=== PATIENT | male | born 1950 | race Caucasian/White ===

== ENCOUNTER 2016-11-05 21:16 | Inpatient (IN) | payer MEDICARE, MEDICAID ==
[2016-11-05] MEDS ORDERED: PANTOPRAZOLE SODIUM 40 MG VIAL IV PRN (22:19)
[2016-11-05] MEDS ORDERED: PANTOPRAZOLE SODIUM 40 MG VIAL IV ONE (22:19)
[2016-11-05] MEDS ORDERED: ONDANSETRON HCL INJ/PF 4 MG/2 ML SDV IV ONE (22:49)
[2016-11-05] MEDS ORDERED: NORMAL SALINE 1000 ML 1,000 ML IV ONE (22:49)
[2016-11-05 23:03] LABS: ALANINE AMINOTRANSFERASE 27 U/L (21-72); ALBUMIN 3.6 g/dL (3.5-5.0); ALKALINE PHOSPHATASE 63 U/L (38-126); ANION GAP 8 (5-19); ASPARTATE AMINO TRANSFERASE 18 U/L (17-59); BILIRUBIN,TOTAL 0.8 mg/dL (0.2-1.3); BLOOD UREA NITROGEN 45 mg/dL (7-20); CALCIUM 9.4 mg/dL (8.4-10.2); CARBON DIOXIDE 35 mmol/L (22-30); CHLORIDE 97 mmol/L (98-107); CREATININE RESULT 1.51 mg/dL (0.52-1.25); GLUCOSE 103 mg/dL (75-110); POTASSIUM 4.3 mmol/L (3.6-5.0); SODIUM 140.1 mmol/L (137-145); TOTAL PROTEIN 6.4 g/dL (6.3-8.2)
[2016-11-05 23:09] LABS: PARTIAL THROMBOPLASTIN TIME 39.6 SEC (23.5-35.8)
[2016-11-05 23:33] LABS: ABSOLUTE EOSINOPHILS # (AUTO) 0.3 10^3/uL (0.0-0.6); ABSOLUTE LYMPHOCYTES (AUTO) 0.8 10^3/uL (0.5-4.7); ABSOLUTE MONOCYTES (AUTO) 0.7 10^3/uL (0.1-1.4); BASOPHILS % (AUTO) 0.2 % (0-2); EOSINOPHILS % (AUTO) 1.7 % (0-6); HEMATOCRIT 30.4 % (37.9-51.0); HEMOGLOBIN 10.4 g/dL (13.5-17.0); HGB HCT DIFFERENCE 0.8; LYMPHOCYTES % (AUTO) 5.1 % (13-45); MEAN CORPUSCULAR HEMOGLOBIN 30.8 pg (27.0-33.4); MEAN CORPUSCULAR HGB CONC 34.3 g/dL (32.0-36.0); MEAN CORPUSCULAR VOLUME 90 fl (80-97); MONOCYTES % (AUTO) 4.1 % (3-13); RED BLOOD COUNT 3.37 10^6/uL (4.35-5.55); SEGMENTED NEUTROPHILS % (AUTO) 88.9 % (42-78); WHITE BLOOD COUNT 15.8 10^3/uL (4.0-10.5)
--- NOTE | 2016-11-06 00:45 | ER Document Report ---
ED General - General Chief Complaint: Vomitting Stated Complaint: VOMITING Notes: Patient is a 66-year-old male presents with complaints of one episode of coffee- ground emesis prior to arrival. Patient does live at [facility] and is chronically debilitated secondary to multiple chronic medical conditions including insulin-dependent diabetes, COPD with chronic oxygen dependence, CHF, multiple DVTs and pulmonary emboli in the past requiring chronic anticoagulation on Coumadin. He has had an upper GI bleed in the past he is uncertain what year. He notes that he is had an associated diffuse abdominal fullness which she describes as mildly uncomfortable and unchanged since onset. Nothing improves or worsens his symptoms. He denies any melena or hematochezia. He has not had any additional episodes of coffee-ground emesis with the exception of very small approximately 5 mL episode here in the emergency department that was consistent with coffee-ground emesis. TRAVEL OUTSIDE OF THE [place] IN LAST 30 DAYS: No - Related Data Allergies/Adverse Reactions: iodine [Iodine] Allergy (Verified 11/06/16 01:26) hydrocodone bitartrate [From Vicodin] Adverse Reaction (Mild, Verified 11/06/16 01:26) VOMITING Home Medications: Current Home Medications Insulin Lispro [Humalog] 100 unit SQ ASDIR PRN 11/06/16 [History] Warfarin Sodium [Coumadin 1 mg Tablet] 0.5 mg PO QHS 11/06/16 [History] Past Medical History - General Information source: Patient, Outside Facility Records - Social History Smoking Status: Never Smoker Chew tobacco use (# tins/day): No Frequency of alcohol use: None Drug Abuse: None Lives with: [facility] Family History: Reviewed & Not Pertinent, CAD, DM, Hyperlipidemia, Hypertension , Thyroid Disfunction Patient has suicidal ideation: No Patient has homicidal ideation: No - Past Medical History Cardiac Medical History: Reports: Hx Atrial Fibrillation, Hx Congestive Heart Failure, Hx Coronary Artery Disease - S/P CABG 2000, Hx DVT - right leg, Hx Heart Attack, Hx Hypercholesterolemia, Hx Hypertension, Hx Peripheral Vascular Disease Pulmonary Medical History: Reports: Hx COPD, Hx Intubation, Hx Respiratory Failure, Hx Sleep Apnea Denies: Hx Asthma, Hx Bronchitis, Hx Pneumonia Neurological Medical History: Denies: Hx Cerebrovascular Accident, Hx Seizures Endocrine Medical History: Reports: Hx Diabetes Mellitus Type 2, Hx Hypothyroidism Renal/ Medical History: Reports: Hx Renal Insufficiency GI Medical History: Reports: Hx Cirrhosis Musculoskeltal Medical History: Reports Hx Arthritis Psychiatric Medical History: Denies: Hx Depression 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 HENT: Negative for sore throat. Eyes: Negative for visual changes. Cardiovascular: Negative for chest pain. Respiratory: Negative for shortness of breath. Gastrointestinal: Other for abdominal fullness, positive for coffee-ground emesis. Genitourinary: Negative for dysuria. Musculoskeletal: Negative for back pain. Skin: Negative for rash. Neurological: Negative for headaches, weakness or numbness. 10 point ROS negative except as marked above and in HPI. Physical Exam - Vital signs Vitals: Temp Pulse Resp BP Pulse Ox 97.9 F 70 16 116/53 L 100 11/05/16 21:31 11/05/16 21:31 11/05/16 21:31 11/05/16 21:31 11/05/16 21:31 Interpretation: Normal Notes: PHYSICAL EXAMINATION: GENERAL: Chronically ill in appearance but in no acute distress. HEAD: Atraumatic, normocephalic. EYES: Pupils equal round and reactive to light, ptosis of the right eye, extraocular movements intact, sclera anicteric, conjunctiva are normal. ENT: nares patent, oropharynx clear without exudates. Moderately dry mucous membranes. NECK: Normal range of motion, supple without lymphadenopathy LUNGS: Breath sounds clear to auscultation bilaterally and equal. No wheezes rales or rhonchi. HEART: Regular rate and rhythm without murmurs ABDOMEN: Soft, nontender, normoactive bowel sounds. No guarding, no rebound. No masses appreciated. EXTREMITIES: Normal range of motion, no pitting or edema. No cyanosis. NEUROLOGICAL: No focal neurological deficits. Moves all extremities spontaneously and on command. PSYCH: Normal mood, normal affect. SKIN: Warm, Dry, normal turgor, no rashes or lesions noted. Course - Re-evaluation Re-evalutation: 11/06/16 04:06 Patient presents with apparently one large episode of coffee-ground emesis prior to arrival in a very small amount here in the emergency department. He is hemodynamically within normal limits and has remained stable during his time here in the emergency department. His INR is subtherapeutic at 1.33. He has not had any bright red bleeding. Lower GI bleed. He does have a history of the same. He was started on IV Protonix and IV fluids at time of arrival. Hewas typed and screened but his hemoglobin was not low enough to warrant blood transfusion. He has been referred to the hospitalist Dr. Mesa for admission. - Vital Signs Vital signs: Temp Pulse Resp BP Pulse Ox 98.1 F 70 17 112/56 L 99 11/06/16 02:25 11/05/16 21:31 11/06/16 03:01 11/06/16 03:01 11/06/16 03:01 - Laboratory Result Diagrams: 11/06/16 02:10 11/05/16 21:40 Laboratory results interpreted by me: 11/05/16 11/05/16 11/05/16 21:40 21:40 21:40 WBC 15.8 H RBC 3.37 L Hgb 10.4 L Hct 30.4 L RDW 15.0 H Seg Neutrophils % 88.9 H Lymphocytes % 5.1 L Absolute Neutrophils 14.0 H PT 17.0 H APTT 39.6 H Chloride 97 L Carbon Dioxide 35 H BUN 45 H Creatinine 1.51 H Est GFR ( Amer) 57 L Est GFR (Non-Af Amer) 47 L 11/06/16 02:10 WBC 17.7 H RBC 3.24 L Hgb 9.8 L Hct 29.2 L RDW 14.8 H Seg Neutrophils % Lymphocytes % Absolute Neutrophils PT APTT Chloride Carbon Dioxide BUN Creatinine Est GFR ( Amer) Est GFR (Non-Af Amer) Discharge - Discharge Clinical Impression: Upper GI bleed, Coffee ground emesis Condition: Fair Disposition: ADMITTED INPATIENT Admitting Provider: Akashist Reanna Mesa Unit Admitted: ICU
[2016-11-06 02:26] LABS: HEMATOCRIT 29.2 % (37.9-51.0); HEMOGLOBIN 9.8 g/dL (13.5-17.0); HGB HCT DIFFERENCE 0.2; MEAN CORPUSCULAR HEMOGLOBIN 30.3 pg (27.0-33.4); MEAN CORPUSCULAR HGB CONC 33.7 g/dL (32.0-36.0); MEAN CORPUSCULAR VOLUME 90 fl (80-97); RED BLOOD COUNT 3.24 10^6/uL (4.35-5.55); RED CELL DISTRIBUTION WIDTH 14.8 % (11.5-14.0); WHITE BLOOD COUNT 17.7 10^3/uL (4.0-10.5)
[2016-11-06] MEDS ORDERED: IPRATROPIUM/ALBUTEROL 0.5-2.5 MG/3 ML AMPUL NEB PRN (02:40)
[2016-11-06] MEDS ORDERED: GLUCAGON,HUMAN RECOMB 1 MG INJ IM PRN (02:44)
[2016-11-06] MEDS ORDERED: DEXTROSE 50%-WATER 25 GM/50 ML DISP.SYRIN IV PRN ×2 (02:44)
[2016-11-06] MEDS ORDERED: DEXTROSE 40% GEL 15 GM TUBE PO PRN ×2 (02:44)
[2016-11-06] MEDS ORDERED: INSULIN LISPRO 100 UNIT/ML 3 ML VIAL SUBCUT PRN (02:44)
[2016-11-06] MEDS ORDERED: ACETAMINOPHEN 325 MG TABLET PO PRN (02:53)
--- NOTE | 2016-11-06 03:07 | PDOC H&P ---
History of Present Illness Admission Date/PCP: 11/06/16 02:34 Dr. Tony [facility] Patient complains of: hematemesis, coffee-ground emesis History of Present Illness: MAYRA JAY is a 66 year old male resident of [facility] who presents to the emergency room for evaluation of above complaint. Patient is Chronically debilitated due to multiple medical conditions, including COPD, insulin-dependent diabetes mellitus, with resulting peripheral vascular disease, having undergone both left below knee and right transmetatarsal amputations, oxygen dependent COPD, reported congestive heart failure, multiple DVTs and pulmonary emboli, requiring chronic anticoagulation with Coumadin. Patient has been discussed with emergency room physician who evaluated the patient. Patient is a poor historian in terms of both acute and chronic aspects of his healthcare. Patient had an episode of coffee ground emesis at [employer], small amount. Subsequent much smaller amount in the emergency room,. Only those 2 episodes.. Patient describes a several day history of mild diffuse upper abdominal discomfort. Could not really say what makes it worse or better. Denies melena or hematochezia. Status post both colonoscopy and upper endoscopy by Dr. Trotter on 10/25/2016. Upper endoscopy revealed gastritis. Colon polyps were removed. Report noted. Has remained hemodynamically stable, and again with no further bleeding episodes since arrival in the emergency room. Still complaining of mild upper abdominal discomfort. Prior to hospitalist service being consulted for admission, emergency room physician did speak with on-call surgeon, Dr. Landis, who has agreed to provide endoscopic services if needed. Laboratory results are listed in [facility] and are reviewed. Social history/personal habits: . Has children. No use of alcohol tobacco or illicit drugs. On disability due to multiple health problems. Family History : Uncertain health status of children. Sister is diabetic. Mother of old age. Uncertain cause of father's . Allergies/adverse reactions are listed in [facility] and are reviewed. Home medications are reviewed from a copy of the medication administration record from the [facility] and are to be reconciled by nursing staff in [facility]. Home medications initially autopopulated into [employer] may not accurately reflect patient's true medications, dosages, and/or frequencies. REVIEW OF SYSTEMS: Constitutional: No fever or chills. Eyes: Wears glasses. ENT: No swallowing problems or complaints. Pulmonary: No current complaints. Cardiovascular: No current complaints, including chest pain. Gastrointestinal: See history and present illness. Skin: No current complaints, including rashes. Hematologic: No unusual easy bruising or bleeding. Neurologic: No current complaints, including numbness or tingling. Musculoskeletal: No current complaints, including painful joints. Genitourinary: No current complaints, including dysuria. PHYSICAL EXAMINATION: 5 feet 4 inches tall. 79.4 kg. BMI 30 kg/m. Blood pressure 123/66. Pulse 69 and regular. 100% saturation on 2 L oxygen per nasal cannula. Respirations are 18 and unlabored. Temperature 98.1. Slightly obese otherwise well-nourished well-developed though chronically ill- appearing male who appears a number of years older than his stated age. Appears slightly fatigued. Otherwise, awake alert and cooperative. Mildly anxious, without agitation. Skin is warm and dry. No grossly obvious evidence of rash in areas of skin examined. No subcutaneous nodules palpated. ENT: Hearing grossly normal to normal conversation. Tongue midline on protrusion pink and slightly moist. Eyes: No scleral icterus. Pupils equal and reactive to light at 4 mm. Meta conjunctivae. Neck is supple and nontender to gentle active range of motion and palpation. Midline trachea. No palpable thyroid nodule mass enlargement or tenderness. Lymphatic: No palpable cervical or clavicular nodes. Neck and lymphatic exams limited by patient body habitus. Psychiatric: At Best fair insight into acute and chronic medical issues. Oriented to time location and why here. Lungs: Auscultation reveals clear and equal breath sounds bilaterally. No use of accessory respiratory muscles. Cardiovascular: Heart regular rate and rhythm, without gallop murmur or rub. No carotid or abdominal aortic bruits. No right ankle or pedal edema. Not sure I can palpate right dorsalis pedis or posterior tibial pulses, but distal remaining portion of foot is warm and dry with acceptable capillary refill. Patient is status post right transmetatarsal amputation, and left below-knee amputation. Both amputation sites have healed nicely. Abdomen: soft, obese, with positive bowel sounds. Very mild diffuse epigastric discomfort to palpation; certainly no evidence of guarding or peritoneal signs. Remaining portion of abdomen is nontender to palpation and compression. Unable to adequately evaluate abdomen for masses or organomegaly due to body habitus. Extremities: Right foot warm and dry, as is left BKA stump. No right calf tenderness to compression. No grossly obvious visual evidence of right calf swelling. Gentle manipulation of right lower extremity fails to reveal any obvious evidence of injury or instability to knee hip or ankle. He has a clean dry and intact Dressing overlying his right heel; this is left in place. Neurologic: Hand customer contact sales associate 5 over 5 and symmetric. Patellar reflexes absent. Absent right Babinski. Light touch is intact at right foot. Dorsiflexion and plantarflexion of foot 5 / 5. Past Medical History Cardiac Medical History: Reports: Atrial Fibrillation, Congestive Heart Failure , Coronary Artery Disease - S/P CABG 2000, DVT - right leg, Myocardial Infarction, Hyperlipidema, Hypertension, Peripheral Vascular Disease Pulmonary Medical History: Reports: Chronic Obstructive Pulmonary Disease (COPD) , Intubation, Respiratory Failure, Sleep Apnea Denies: Asthma, Bronchitis, Pneumonia EENT Medical History: Reports: Eyes - Glasses Neurological Medical History: Denies: Seizures Endocrine Medical History: Reports: Diabetes Mellitus Type 2, Hypothyroidism GI Medical History: Reports: Cirrhosis Musculoskeltal Medical History: Reports: Arthritis Psychiatric Medical History: Denies: Depression Hematology: Reports: Anemia Infectious Medical History: 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 Past Surgical History Past Surgical History: Reports: Cholecystectomy, Coronary Artery Bypass Graft - 3 vessel CABG in 1999, Orthopedic Surgery - Left BKA and right transmetatarsal amputations, Pacemaker Social History Information Source: Patient, Emergency Med Personnel, [facility] Records Lives with: [facility] Smoking Status: Never Smoker Frequency of Alcohol Use: None Hx Recreational Drug Use: No Hx Prescription Drug Abuse: No - Advance Directive Resuscitation Status: Full Code Surrogate healthcare decision maker:: Daughter Angelique Family History Family History: Reviewed & Not Pertinent, CAD, DM, Hyperlipidemia, Hypertension , Thyroid Disfunction Parental Family History Reviewed: Yes Children Family History Reviewed: Yes Sibling(s) Family History Reviewed.: Yes Medication/Allergy Home Medications: Amiodarone HCl [Cordarone 200 mg Tablet] 100 mg PO DAILY 06/02/15 Atorvastatin Calcium [Lipitor] 40 mg PO QHS 06/02/15 Multivitamin [Daily Vitamin] 1 each PO DAILY 06/02/15 Fenofibrate Nanocrystallized [Tricor] 1 tab PO DAILY 07/12/16 Fluticasone/Salmeterol [Advair 250-50 Diskus 28 dose] 1 puff IH BID 07/12/16 Furosemide [Lasix] 60 mg PO BID 07/12/16 Insulin Glargine,Hum.rec.anlog [Lantus] 30 units SUBCUT QHS 07/12/16 Magnesium Oxide 1 tab PO DAILY 07/12/16 Insulin Lispro [Humalog] 5 units SUBCUT TID 08/21/16 Metoprolol Succinate [Toprol Xl 50 mg Tab.sr] 1 tab PO DAILY 08/21/16 Lorazepam [Ativan 0.5 mg Tablet] 0.5 mg PO Q4HP PRN #30 tablet 09/01/16 Clopidogrel Bisulfate [Plavix 75 mg Tablet] 75 mg PO DAILY 10/24/16 Epoetin [place] [Procrit Inj 20,000 Unit/1 ml Vial (Renal)] 20,000 unit IJ ASDIR Levothyroxine Sodium [Synthroid] 100 mcg PO DAILY 10/24/16 Ondansetron HCl [Zofran 4 mg Tablet] 1 tab PO ASDIR PRN 10/24/16 Sennosides/Docusate Sodium [Docusate Sodium-Senna Tablet] 2 each PO QHS Spironolact/Hydrochlorothiazid [Aldactazide 25-25 Tablet] 1 each PO DAILY Tamsulosin HCl [Flomax 0.4 mg Cap.sr] 0.4 mg PO DAILY 10/24/16 Tiotropium [place] [Spiriva Handihaler 18 mcg/dose (30 Dose)] 1 cap IH DAILY Albuterol Sulfate [Proair HFA] 2 puff IH Q4H PRN 11/06/16 Cholecalciferol (Vitamin D3) [Vitamin D3] 50,000 unit PO ASDIR PRN 11/06/16 Insulin Lispro [Humalog] 100 unit SQ ASDIR PRN 11/06/16 Cefuroxime Axetil [Ceftin 500 mg Tablet] 500 mg PO Q12 #14 tablet 11/10/16 Lactulose [Cephulac Syrup 20 gm/30 ml Udcup] 20 gm PO Q6 udc 11/10/16 Lansoprazole [Prevacid 30 mg Odt Tablet] 30 mg PO BIDACBS tab.rap.dr 11/10/16 Oxycodone HCl [Oxy-Ir 5 mg Tablet] 5 mg PO Q6HP PRN #30 tablet 11/10/16 Allergies/Adverse Reactions: iodine [Iodine] Allergy (Verified 11/06/16 01:26) hydrocodone bitartrate [From Vicodin] Adverse Reaction (Mild, Verified 11/06/16 01:26) VOMITING Physical Exam Vital Signs: Temp Pulse Resp BP Pulse Ox 98.1 F 70 14 123/66 100 11/06/16 02:25 11/05/16 21:31 11/06/16 02:01 11/06/16 02:01 11/06/16 02:01 Assessment & Plan - Diagnosis (1) COPD (chronic obstructive pulmonary disease) Qualifiers: COPD type: unspecified COPD Qualified Code(s): J44.9 - Chronic obstructive pulmonary disease, unspecified Is this a current diagnosis for this admission?: YesPlan: Clinically stable at present. Resume home medications as appropriate once these have been reviewed. (2) Coffee ground emesis Is this a current diagnosis for this admission?: YesPlan: Gastritis noted on upper endoscopy by Dr. Trotter, the of this month. IV Protonix. Dr. Landis, credit operations specialist surgeon has agreed to provide endoscopic services if necessary. Hemodynamically stable at present. Serial hemoglobin and hematocrit. We'll obviously hold Coumadin. I have strongly encouraged patient not to get out of bed without notifying staff , to avoid a fall with injury. He has been nonambulatory since his left below-knee amputation. Knee high SCDs for DVT prophylaxis; with coffee ground emesis, along with patient being on Coumadin, we'll obviously forego Lovenox or heparin at this point in time. Impression and plans were discussed with patient, who concurs. Time spent in evaluation and management of patient: 53 minutes. (3) Epigastric abdominal pain Is this a current diagnosis for this admission?: Yes (4) Gastritis determined by endoscopy Is this a current diagnosis for this admission?: Yes (5) Chronic anticoagulation Is this a current diagnosis for this admission?: Yes (6) Decubitus ulcer, heel, right, unstageable Is this a current diagnosis for this admission?: YesPlan: Innovative mattress. Turn every 2 hours. (7) Hypothyroidism Qualifiers: Hypothyroidism type: unspecified Qualified Code(s): E03.9 - Hypothyroidism, unspecified Is this a current diagnosis for this admission?: YesPlan: TSH is pending. Resume home medications as appropriate once these have been reviewed. (8) CKD (chronic kidney disease) stage 3, GFR 30-59 ml/min Is this a current diagnosis for this admission?: YesPlan: Follow-up chemistry. (9) Chronic combined systolic and diastolic CHF (congestive heart failure) Is this a current diagnosis for this admission?: YesPlan: Clinically stable at present. Resume home medications as appropriate once these have been reviewed. (10) Coronary artery disease Qualifiers: Coronary Disease-Associated Artery/Lesion type: [place] artery [place] vs. transplanted heart: [place] heart Associated angina: without angina Qualified Code(s): I25.10 - Atherosclerotic heart disease of [place] coronary artery without angina pectoris Is this a current diagnosis for this admission?: Yes (11) History of DVT (deep vein thrombosis) Is this a current diagnosis for this admission?: Yes (12) HAKAN (obstructive sleep apnea) Is this a current diagnosis for this admission?: YesPlan: CPAP daily at bedtime. Patient reportedly noncompliant with CPAP as outpatient. - Inpatient Certification Based on my medical assessment, after consideration of the patient's comorbidities, presenting symptoms, or acuity I expect that the services needed warrant INPATIENT care.: Yes I certify that my determination is in accordance with my understanding of Medicare's requirements for reasonable and necessary INPATIENT services [42 CFR 412.3e].: Yes Medical Necessity: Significant Comorbidiites Make Outpatient Treatment Too Risky , Need Close Monitoring Due to Risk of Patient Decompensation, Need For IV Fluids, Need For Continuous Telemetry Monitoring, Risk of Complication if Not Cared For in Hospital Post Hospital Care: D/C or Transfer Summary
[2016-11-06] MEDS: NORMAL SALINE 1000 ML 1,000 ML IV PRN ×2 (03:14→21:36)
[2016-11-06 06:59] LABS: HEMATOCRIT 29.2 % (37.9-51.0); HEMOGLOBIN 9.9 g/dL (13.5-17.0); HGB HCT DIFFERENCE 0.5; MEAN CORPUSCULAR HEMOGLOBIN 30.4 pg (27.0-33.4); MEAN CORPUSCULAR HGB CONC 33.7 g/dL (32.0-36.0); MEAN CORPUSCULAR VOLUME 90 fl (80-97); RED BLOOD COUNT 3.24 10^6/uL (4.35-5.55); RED CELL DISTRIBUTION WIDTH 14.5 % (11.5-14.0); WHITE BLOOD COUNT 18.1 10^3/uL (4.0-10.5)
[2016-11-06 07:01] LABS: PROTHROMBIN TIME 17.5 SEC (11.4-15.4)
[2016-11-06 07:22] LABS: ANION GAP 10 (5-19); BLOOD UREA NITROGEN 41 mg/dL (7-20); CARBON DIOXIDE 29 mmol/L (22-30); CHLORIDE 100 mmol/L (98-107); CREATININE RESULT 1.33 mg/dL (0.52-1.25); GLUCOSE 103 mg/dL (75-110); MAGNESIUM 2.3 mg/dL (1.6-2.3); POTASSIUM 4.3 mmol/L (3.6-5.0); SODIUM 139.1 mmol/L (137-145)
[2016-11-06] MEDS ORDERED: LORAZEPAM 0.5 MG TABLET PO PRN (08:47)
--- NOTE | 2016-11-06 08:48 | PDOC PROGRESS REPORT ---
Subjective Progress Note for:: 11/06/16 Subjective:: New admission 11/06/16. Denies any history of pulmonary embolism at all (as documented w/ prior PE). Had only one episode of DVT multiple years ago. Has been on warfarin for a long time. 3 episodes of GI bleed since September 2016. Physical Exam Vital Signs: Temp Pulse Resp BP Pulse Ox 98.2 F 77 22 H 106/57 L 97 11/06/16 05:24 11/06/16 07:44 11/06/16 05:24 11/06/16 05:24 11/06/16 05:24 Intake & Output 11/05/16 11/06/16 11/07/16 06:59 06:59 06:59 Intake Total 150 Output Total 200 Balance -50 Weight 79.3 kg Results Laboratory Results: 11/06/16 06:38 11/06/16 06:38 11/06/16 11/06/16 11/06/16 06:38 06:38 06:38 WBC 18.1 H RBC 3.24 L Hgb 9.9 L Hct 29.2 L MCV 90 MCH 30.4 MCHC 33.7 RDW 14.5 H Plt Count 191 Sodium 139.1 Potassium 4.3 Chloride 100 Carbon Dioxide 29 Anion Gap 10 BUN 41 H Creatinine 1.33 H Est GFR ( Amer) > 60 Est GFR (Non-Af Amer) 54 L Glucose 103 Calcium 9.0 Magnesium 2.3 TSH 6.28 H Assessment & Plan - Diagnosis (1) Coffee ground emesis Is this a current diagnosis for this admission?: Yes (2) Leukocytosis Qualifiers: Leukocytosis type: unspecified Qualified Code(s): D72.829 - Elevated white blood cell count, unspecified Is this a current diagnosis for this admission?: Yes (3) Anemia Qualifiers: Iron deficiency anemia type: chronic blood loss Is this a current diagnosis for this admission?: Yes (4) Coagulopathy Is this a current diagnosis for this admission?: Yes (5) Decubitus ulcer Qualifiers: Pressure ulcer location: heel Pressure ulcer stage: unstageable Laterality: right Qualified Code(s): L89.610 - Pressure ulcer of right heel, unstageable Is this a current diagnosis for this admission?: Yes (6) Elevated TSH Is this a current diagnosis for this admission?: Yes - Plan Summary Plan Summary: free t4, d/c warfarin-patients wish. DVT prophylaxis on d/c. Consult URSULA Alva.
[2016-11-06] MEDS: PANTOPRAZOLE SODIUM 40 MG VIAL IV SCH ×2 (09:24→21:35)
[2016-11-06] MEDS: DOCUSATE SODIUM 100 MG CAPSULE PO SCH ×2 (09:32→17:53)
[2016-11-06 10:00] LABS: HEMATOCRIT 28.7 % (37.9-51.0); HEMOGLOBIN 9.6 g/dL (13.5-17.0); HGB HCT DIFFERENCE 0.1; MEAN CORPUSCULAR HEMOGLOBIN 30.2 pg (27.0-33.4); MEAN CORPUSCULAR HGB CONC 33.5 g/dL (32.0-36.0); MEAN CORPUSCULAR VOLUME 90 fl (80-97); RED BLOOD COUNT 3.19 10^6/uL (4.35-5.55); RED CELL DISTRIBUTION WIDTH 14.7 % (11.5-14.0); WHITE BLOOD COUNT 18.5 10^3/uL (4.0-10.5)
[2016-11-06] MEDS ORDERED: LEVOTHYROXINE SODIUM 0.075 MG TABLET PO SCH (10:00)
[2016-11-06] MEDS ORDERED: MAGNESIUM OXIDE 400 MG TABLET PO SCH (10:00)
[2016-11-06] MEDS ORDERED: METOPROLOL SUCCINATE 50 MG TAB.SR.24H PO SCH (10:00)
[2016-11-06] MEDS ORDERED: TIOTROPIUM BROMIDE DPI 5 CAP/KIT (18 MCG/CAP) IH ONE (11:00)
[2016-11-06] MEDS ORDERED: FLUTICASONE/SALMETEROL DISKUS 250-50 MCG/DOSE IH ONE (11:00)
[2016-11-06] MEDS: TAMSULOSIN HCL 0.4 MG CAP.SR.24H PO SCH (11:01)
[2016-11-06] MEDS: FUROSEMIDE 40 MG TABLET PO SCH ×2 (11:02→17:36)
[2016-11-06] MEDS: AMIODARONE HCL 200 MG TABLET PO SCH (11:02)
[2016-11-06] MEDS: MULTIVITAMIN TABLET PO SCH (11:03)
[2016-11-06] MEDS ORDERED: LEVOTHYROXINE SODIUM 0.1 MG TABLET PO ONE (12:00)
[2016-11-06] MEDS: FLUTICASONE/SALMETEROL DISKUS 250-50 MCG/DOSE IH SCH (17:53)
--- NOTE | 2016-11-06 21:30 | PDOC CONSULTATION ---
History of Present Illness Admission Date/PCP: 11/06/16 02:41 History of Present Illness: Cooper Haque is a 66-year-old white male, resident of [facility], debilitated with multiple comorbidities. Medical issues include oxygen dependent COPD, insulin-dependent diabetes mellitus, congestive heart failure, previous DVT with chronic anticoagulation with Coumadin, coronary artery disease status post myocardial infarction and coronary artery bypass graft and pacemaker placement, urinary retention, peripheral arterial disease status post left BKA and right TMA. The patient had one episode of coffee- ground emesis at [facility] and was transported to the emergency room. The patient's DVT was in his right leg per the patient. He is on Coumadin at [facility]. The patient was evaluated in the emergency room on 10/04/2016 for blood in stools. On 10/25/2016 he underwent EGD and colonoscopy by Dr. Trotter. He was noted to have mild chronic inactive gastritis, but no Helicobacter pylori on EGD. On colonoscopy, he was noted to have internal hemorrhoids and 7 colon polyps were removed. The pathology report for the polyps revealed a combination of lymphoid aggregate, hyperplastic polyp, tubular adenoma, and tubulovillous adenomas. The patient reports that 3 months ago he had an episode where he spit up a very small amount of blood, otherwise no other episodes of coffee-ground emesis until yesterday. He has had no coffee-ground emesis since being admitted to the hospital. His hemoglobin and blood pressure stable. Review of systems is positive for weight loss since admission to the long-term; 260 pounds down to 185 pounds through diet changes and disease control. Also positive for leg swelling, chronic shortness of breath, unchanged recently , urinary retention. Past Medical History Cardiac Medical History: Reports: Atrial Fibrillation, Congestive Heart Failure , Coronary Artery Disease - S/P CABG 2000, DVT - right leg, Myocardial Infarction, Hyperlipidema, Hypertension, Peripheral Vascular Disease Pulmonary Medical History: Reports: Chronic Obstructive Pulmonary Disease (COPD) , Intubation, Respiratory Failure, Sleep Apnea Denies: Asthma, Bronchitis, Pneumonia EENT Medical History: Reports: Eyes - Glasses Neurological Medical History: Denies: Seizures Endocrine Medical History: Reports: Diabetes Mellitus Type 2, Hypothyroidism GI Medical History: Reports: Cirrhosis Musculoskeltal Medical History: Reports: Arthritis, Other - Status post left BKA and right TMA due to peripheral vascular disease/diabetes. 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 Parental Family History Reviewed: Yes Children Family History Reviewed: Yes Sibling(s) Family History Reviewed.: Yes Medication/Allergy Home Medications: Amiodarone HCl [Cordarone 200 mg Tablet] 100 mg PO DAILY 06/02/15 Aspirin [Aspirin EC] 81 mg PO DAILY 06/02/15 Atorvastatin Calcium [Lipitor] 40 mg PO QHS 06/02/15 Multivitamin [Daily Vitamin] 1 each PO DAILY 06/02/15 Fenofibrate Nanocrystallized [Tricor] 1 tab PO DAILY 07/12/16 Fluticasone/Salmeterol [Advair 250-50 Diskus 28 dose] 1 puff IH BID 07/12/16 Furosemide [Lasix] 60 mg PO BID 07/12/16 Insulin Glargine,Hum.rec.anlog [Lantus] 30 units SUBCUT QHS 07/12/16 Magnesium Oxide 1 tab PO DAILY 07/12/16 Insulin Lispro [Humalog] 5 units SUBCUT TID 08/21/16 Metoprolol Succinate [Toprol Xl 50 mg Tab.sr] 1 tab PO DAILY 08/21/16 Lorazepam [Ativan 0.5 mg Tablet] 0.5 mg PO Q4HP PRN #30 tablet 09/01/16 Oxycodone HCl [Oxy-Ir 5 mg Tablet] 5 mg PO Q6HP PRN #0 tablet 09/01/16 Clopidogrel Bisulfate [Plavix 75 mg Tablet] 75 mg PO DAILY 10/24/16 Epoetin [place] [Procrit] 20,000 unit IJ ASDIR 10/24/16 Famotidine [Pepcid 20 mg Tablet] 20 mg PO DAILY 10/24/16 Levothyroxine Sodium [Synthroid] 100 mcg PO DAILY 10/24/16 Ondansetron HCl [Zofran 4 mg Tablet] 1 tab PO ASDIR PRN 10/24/16 Sennosides/Docusate Sodium [Docusate Sodium-Senna Tablet] 2 each PO QHS Spironolact/Hydrochlorothiazid [Aldactazide 25-25 Tablet] 1 each PO DAILY Tamsulosin HCl [Flomax 0.4 mg Cap.sr] 0.4 mg PO DAILY 10/24/16 Tiotropium [place] [Spiriva Handihaler 18 mcg/dose (30 Dose)] 1 cap IH DAILY Warfarin Sodium [Coumadin 1 mg Tablet] 1 mg PO ASDIR 10/24/16 Albuterol Sulfate [Proair HFA] 2 puff IH Q4H PRN 11/06/16 Cholecalciferol (Vitamin D3) [Vitamin D] 50,000 unit PO ASDIR PRN 11/06/16 Insulin Lispro [Humalog] 100 unit SQ ASDIR PRN 11/06/16 Warfarin Sodium [Coumadin 1 mg Tablet] 0.5 mg PO QHS 11/06/16 Allergies/Adverse Reactions: iodine [Iodine] Allergy (Verified 11/06/16 01:26) hydrocodone bitartrate [From Vicodin] Adverse Reaction (Mild, Verified 11/06/16 01:26) VOMITING Review of Systems All systems: reviewed and no additional remarkable complaints except as stated Physical Exam Vital Signs: Temp Pulse Resp BP Pulse Ox 97.8 F 79 20 102/53 L 98 11/06/16 20:17 11/06/16 20:17 11/06/16 20:17 11/06/16 20:17 11/06/16 20:17 Intake & Output 11/05/16 11/06/16 11/07/16 06:59 06:59 06:59 Intake Total 150 410 Output Total 200 650 Balance -50 -240 Weight 79.3 kg General appearance: PRESENT: no acute distress, obese Eye exam: PRESENT: EOMI, other - Right eye is dry and red. Mouth exam: PRESENT: tongue midline Teeth exam: PRESENT: poor dentation Neck exam: ABSENT: JVD, lymphadenopathy, tenderness, thyromegaly Respiratory exam: PRESENT: clear to auscultation karthikeyan, other - Healed midline sternotomy scar. Previous left chest pacemaker site scar. Pacemaker in right chest. Cardiovascular exam: PRESENT: other - Difficult to auscultate, seems regular at the wrist GI/Abdominal exam: PRESENT: soft. ABSENT: distended, tenderness Gentrourinary exam: PRESENT: other - Indwelling Morse catheter. Mild erythema. Urine is thick and cloudy. Extremities exam: PRESENT: other - Left BKA, stump is well-healed. Right TMA, some dry eschar on the stump but otherwise healing well. Right heel ulcer covered with Allevyn.. ABSENT: pedal edema, tenderness Musculoskeletal exam: PRESENT: deformity - Left BKA and right TMA.. ABSENT: ambulatory Neurological exam: PRESENT: alert, oriented to situation, other - Affected speech. Did not assess for significant cognitive deficits, but grossly may have. Psychiatric exam: PRESENT: normal mood Skin exam: PRESENT: other - Some inguinal groin fold and scrotal mild erythema, treated with powder. Sore on right heel. Results Laboratory Results: 11/06/16 09:50 11/06/16 06:38 11/06/16 11/06/16 11/06/16 06:38 06:38 06:38 WBC 18.1 H RBC 3.24 L Hgb 9.9 L Hct 29.2 L MCV 90 MCH 30.4 MCHC 33.7 RDW 14.5 H Plt Count 191 Sodium 139.1 Potassium 4.3 Chloride 100 Carbon Dioxide 29 Anion Gap 10 BUN 41 H Creatinine 1.33 H Est GFR ( Amer) > 60 Est GFR (Non-Af Amer) 54 L Glucose 103 Calcium 9.0 Magnesium 2.3 TSH 6.28 H Free T4 11/06/16 11/06/16 06:38 09:50 WBC 18.5 H RBC 3.19 L Hgb 9.6 L Hct 28.7 L MCV 90 MCH 30.2 MCHC 33.5 RDW 14.7 H Plt Count 218 Sodium Potassium Chloride Carbon Dioxide Anion Gap BUN Creatinine Est GFR ( Amer) Est GFR (Non-Af Amer) Glucose Calcium Magnesium TSH Free T4 1.29 Impressions: Chest X-Ray 11/06/16 00:00 IMPRESSION: NO ACUTE CARDIOPULMONARY PROCESS. NO SIGNIFICANT CHANGE FROM PRIOR STUDY. KUB X-Ray 11/06/16 00:00 IMPRESSION: NO RADIOGRAPHIC EVIDENCE FOR ACUTE ABDOMINAL DISEASE. Assessment & Plan - Diagnosis (1) Coffee ground emesis Is this a current diagnosis for this admission?: YesPlan: 66-year-old white male with one episode of coffee-ground emesis at the long-term. He is on Coumadin for DVT. He was recently evaluated on 10/25/2016 with an upper and lower scope. No significant pathology was seen. He is hemodynamically stable. Surgery is available to scope emergently if needed, otherwise Dr. Trotter can follow patient this week.
[2016-11-06] MEDS: INSULIN GLARGINE,HUM.REC.ANLOG 300 UNIT/3 ML INSULN.PEN SUBCUT SCH (21:34)
[2016-11-06] MEDS: ATORVASTATIN CALCIUM 40 MG TABLET PO SCH (21:35)
[2016-11-06] MEDS ORDERED: INSULIN GLARGINE,HUM.REC.ANLOG 1,000 UNIT/10 ML UNIT SUBCUT SCH ×3 (22:00)
[2016-11-07 04:43] LABS: HEMATOCRIT 27.5 % (37.9-51.0); HEMOGLOBIN 9.4 g/dL (13.5-17.0); HGB HCT DIFFERENCE 0.7; MEAN CORPUSCULAR HEMOGLOBIN 30.6 pg (27.0-33.4); MEAN CORPUSCULAR HGB CONC 34.3 g/dL (32.0-36.0); MEAN CORPUSCULAR VOLUME 90 fl (80-97); RED BLOOD COUNT 3.07 10^6/uL (4.35-5.55); RED CELL DISTRIBUTION WIDTH 14.6 % (11.5-14.0); WHITE BLOOD COUNT 18.5 10^3/uL (4.0-10.5)
[2016-11-07 04:47] LABS: PROTHROMBIN TIME 19.4 SEC (11.4-15.4)
[2016-11-07] MEDS ORDERED: ERTAPENEM SODIUM INJ 1 GM VIAL IV ONE (09:22)
--- NOTE | 2016-11-07 09:33 | PDOC PROGRESS REPORT ---
Subjective Progress Note for:: 11/07/16 Subjective:: Patient had a good bowel movement the day before admission. Denies constipation. Minimal cough but nothing unusual. Has an indwelling Morse catheter. Denies any chills or fever. No more hematemesis. No shortness of breath. No reported temperature spikes or respiratory distress. No diarrhea, or abdominal pain. Wears oxygen at home chronically. Physical Exam Vital Signs: Temp Pulse Resp BP Pulse Ox 97.8 F 65 16 127/58 H 98 11/07/16 07:26 11/07/16 07:40 11/07/16 07:40 11/07/16 07:26 11/07/16 07:40 Intake & Output 11/06/16 11/07/16 11/08/16 06:59 06:59 06:59 Intake Total 150 962 Output Total 200 1500 Balance -50 -538 Weight 79.3 kg 95 kg General appearance: PRESENT: no acute distress, obese Head exam: PRESENT: normocephalic Eye exam: PRESENT: conjunctival injection - Right, EOMI Mouth exam: PRESENT: moist, neck supple Neck exam: ABSENT: JVD Respiratory exam: PRESENT: clear to auscultation karthikeyan. ABSENT: rhonchi, wheezes Cardiovascular exam: PRESENT: RRR. ABSENT: gallop GI/Abdominal exam: PRESENT: hypoactive bowel sounds, soft. ABSENT: tenderness Extremities exam: PRESENT: pedal edema - Trace Neurological exam: PRESENT: alert, awake Skin exam: PRESENT: dry, warm. ABSENT: cyanosis Results Laboratory Results: 11/07/16 04:17 11/06/16 06:38 11/06/16 11/06/16 11/07/16 06:38 09:50 04:17 WBC 18.5 H 18.5 H RBC 3.19 L 3.07 L Hgb 9.6 L 9.4 L Hct 28.7 L 27.5 L MCV 90 90 MCH 30.2 30.6 MCHC 33.5 34.3 RDW 14.7 H 14.6 H Plt Count 218 219 Free T4 1.29 Impressions: Chest X-Ray 11/06/16 00:00 IMPRESSION: NO ACUTE CARDIOPULMONARY PROCESS. NO SIGNIFICANT CHANGE FROM PRIOR STUDY. KUB X-Ray 11/06/16 00:00 IMPRESSION: NO RADIOGRAPHIC EVIDENCE FOR ACUTE ABDOMINAL DISEASE. Assessment & Plan - Diagnosis (1) Coffee ground emesis Is this a current diagnosis for this admission?: Yes (2) Leukocytosis Qualifiers: Leukocytosis type: unspecified Qualified Code(s): D72.829 - Elevated white blood cell count, unspecified Is this a current diagnosis for this admission?: Yes (3) Anemia Qualifiers: Iron deficiency anemia type: chronic blood loss Is this a current diagnosis for this admission?: Yes (4) Coagulopathy Is this a current diagnosis for this admission?: Yes (5) Decubitus ulcer Qualifiers: Pressure ulcer location: heel Pressure ulcer stage: unstageable Laterality: right Qualified Code(s): L89.610 - Pressure ulcer of right heel, unstageable Is this a current diagnosis for this admission?: Yes (6) Elevated TSH Is this a current diagnosis for this admission?: Yes (7) UTI (urinary tract infection) Qualifiers: Urinary tract infection type: catheter-associated UTI Indwelling urinary catheter type: indwelling urethral catheter Encounter type: initial encounter Qualified Code(s): T83.511A - Infection and inflammatory reaction due to indwelling urethral catheter, initial encounter; N39.0 - Urinary tract infection, site not specified Is this a current diagnosis for this admission?: Yes - Time Time Spent with patient: 25-34 minutes - Plan Summary Plan Summary: The patient denies any pulmonary embolism at all. Patient reported that he has only one episode of DVT in the past. He wears oxygen chronically at home. He has indwelling Morse catheter. We will repeat cultures of the urine and the eye drainage. Patient had Proteus Escherichia coli on last urine culture 2015 before being admitted to the hospital. We will begin intravenous Invanz. Monitor WBC. In terms of the patient's GI bleeding hemoglobins and hematocrits seems to be stable. Continue intravenous proton pump inhibitor and recheck hemoglobin and hematocrit in the morning. Consult gastroenterology for further evaluation. Had recent endoscopy. Patient may not need chronic anticoagulation with warfarin based on his history and wanted it to be discontinued. He likely will need DVT prophylaxis due to his risk for venous thrombosis when discharged.
--- NOTE | 2016-11-07 09:52 | Progress Note ---
Provider Note Provider Note: Other diagnoses: 1. Chronic hypoxemic respiratory failure on home oxygen 2. COPD 3. Type II diabetes mellitus 4. Obstructive sleep apnea 5. Hypothyroidism 6. Hypertension 7. Hyperlipidemia 8. Coronary artery disease 9. Diastolic heart failure 10. Peripheral vascular disease 11. remote Lower extremity deep venous thrombosis 12. Questionable liver cirrhosis
[2016-11-07] MEDS ORDERED: ERTAPENEM SODIUM INJ 1 GM VIAL IV SCH (10:00)
[2016-11-07] MEDS: MULTIVITAMIN TABLET PO SCH (11:22)
[2016-11-07] MEDS: AMIODARONE HCL 200 MG TABLET PO SCH (11:22)
[2016-11-07] MEDS: TAMSULOSIN HCL 0.4 MG CAP.SR.24H PO SCH (11:23)
[2016-11-07] MEDS: FUROSEMIDE 40 MG TABLET PO SCH ×2 (11:23→17:34)
[2016-11-07] MEDS: DOCUSATE SODIUM 100 MG CAPSULE PO SCH ×2 (11:23→17:34)
[2016-11-07] MEDS: LEVOTHYROXINE SODIUM 0.1 MG TABLET PO SCH (11:23)
[2016-11-07] MEDS: MAGNESIUM OXIDE 400 MG TABLET PO SCH (11:23)
[2016-11-07] MEDS: PANTOPRAZOLE SODIUM 40 MG VIAL IV SCH ×2 (11:24→21:55)
[2016-11-07] MEDS: METOPROLOL SUCCINATE 50 MG TAB.SR.24H PO SCH (11:24)
[2016-11-07] MEDS: TIOTROPIUM BROMIDE DPI 5 CAP/KIT (18 MCG/CAP) IH SCH (11:24)
[2016-11-07] MEDS: FLUTICASONE/SALMETEROL DISKUS 250-50 MCG/DOSE IH SCH ×2 (11:24→17:35)
[2016-11-07] MEDS: ERTAPENEM SODIUM 1 GM in NORMAL SALINE 50 ML IV SCH (11:25)
[2016-11-07] MEDS: NORMAL SALINE 1000 ML 1,000 ML IV PRN (17:35)
[2016-11-07] MEDS: PROMETHAZINE HCL INJ 25 MG/1 ML VIAL IV PRN (21:56)
[2016-11-07] MEDS: ATORVASTATIN CALCIUM 40 MG TABLET PO SCH (21:56)
[2016-11-07] MEDS: INSULIN GLARGINE,HUM.REC.ANLOG 300 UNIT/3 ML INSULN.PEN SUBCUT SCH (22:05)
[2016-11-08 04:51] LABS: HEMATOCRIT 27.6 % (37.9-51.0); HEMOGLOBIN 9.4 g/dL (13.5-17.0); HGB HCT DIFFERENCE 0.6; MEAN CORPUSCULAR HEMOGLOBIN 30.4 pg (27.0-33.4); MEAN CORPUSCULAR VOLUME 90 fl (80-97); RED BLOOD COUNT 3.09 10^6/uL (4.35-5.55); RED CELL DISTRIBUTION WIDTH 14.5 % (11.5-14.0); WHITE BLOOD COUNT 16.1 10^3/uL (4.0-10.5)
[2016-11-08 04:58] LABS: PROTHROMBIN TIME 22.3 SEC (11.4-15.4)
[2016-11-08] MEDS: MAGNESIUM OXIDE 400 MG TABLET PO SCH (09:50)
[2016-11-08] MEDS: PANTOPRAZOLE SODIUM 40 MG VIAL IV SCH (09:50)
[2016-11-08] MEDS: AMIODARONE HCL 200 MG TABLET PO SCH (09:50)
[2016-11-08] MEDS: FUROSEMIDE 40 MG TABLET PO SCH ×2 (09:50→18:10)
[2016-11-08] MEDS: DOCUSATE SODIUM 100 MG CAPSULE PO SCH ×2 (09:50→18:10)
[2016-11-08] MEDS: MULTIVITAMIN TABLET PO SCH (09:50)
[2016-11-08] MEDS: TAMSULOSIN HCL 0.4 MG CAP.SR.24H PO SCH (09:50)
[2016-11-08] MEDS: LEVOTHYROXINE SODIUM 0.1 MG TABLET PO SCH (09:51)
[2016-11-08] MEDS: TIOTROPIUM BROMIDE DPI 5 CAP/KIT (18 MCG/CAP) IH SCH (09:51)
[2016-11-08] MEDS: FLUTICASONE/SALMETEROL DISKUS 250-50 MCG/DOSE IH SCH ×2 (09:51→18:10)
[2016-11-08] MEDS: METOPROLOL SUCCINATE 50 MG TAB.SR.24H PO SCH (09:51)
[2016-11-08] MEDS: ERTAPENEM SODIUM 1 GM in NORMAL SALINE 50 ML IV SCH (09:59)
--- NOTE | 2016-11-08 12:06 | PDOC PROGRESS REPORT ---
Subjective Progress Note for:: 11/08/16 Subjective:: The patient reports having some crampy abdominal pain. Physical Exam Vital Signs: Temp Pulse Resp BP Pulse Ox 97.8 F 70 18 126/67 H 100 11/08/16 11:14 11/08/16 11:14 11/08/16 11:14 11/08/16 11:14 11/08/16 11:14 Intake & Output 11/07/16 11/08/16 11/09/16 06:59 06:59 06:59 Intake Total 962 1717 100 Output Total 1500 1750 400 Balance -538 -33 -300 Weight 95 kg 93.1 kg General appearance: PRESENT: no acute distress Head exam: PRESENT: atraumatic, normocephalic Eye exam: PRESENT: conjunctiva pink Ear exam: PRESENT: normal external ear exam Mouth exam: PRESENT: moist, tongue midline Neck exam: ABSENT: JVD Respiratory exam: PRESENT: clear to auscultation karthikeyan. ABSENT: rales, rhonchi, wheezes Cardiovascular exam: PRESENT: RRR. ABSENT: diastolic murmur, rubs, systolic murmur GI/Abdominal exam: PRESENT: normal bowel sounds, tenderness - Mild epigastric tenderness. ABSENT: distended, guarding, mass, organolmegaly, rebound Extremities exam: PRESENT: other - Patient is status post left BKA and right transmetatarsal amputation Neurological exam: PRESENT: alert, awake, oriented to person, oriented to place , oriented to time Psychiatric exam: PRESENT: appropriate affect Skin exam: PRESENT: rash - Groin shows an erythematous rash on the scrotum Results Laboratory Results: 11/08/16 04:15 11/06/16 06:38 11/08/16 04:15 WBC 16.1 H RBC 3.09 L Hgb 9.4 L Hct 27.6 L MCV 90 MCH 30.4 MCHC 34.0 RDW 14.5 H Plt Count 218 Impressions: Chest X-Ray 11/06/16 00:00 IMPRESSION: NO ACUTE CARDIOPULMONARY PROCESS. NO SIGNIFICANT CHANGE FROM PRIOR STUDY. KUB X-Ray 11/06/16 00:00 IMPRESSION: NO RADIOGRAPHIC EVIDENCE FOR ACUTE ABDOMINAL DISEASE. Assessment & Plan - Diagnosis (1) Anemia Qualifiers: Iron deficiency anemia type: chronic blood loss Is this a current diagnosis for this admission?: YesPlan: Patient's hemoglobin has remained stable. Patient is to be seen by gastroenterology today. (2) COPD (chronic obstructive pulmonary disease) Qualifiers: COPD type: unspecified COPD Qualified Code(s): J44.9 - Chronic obstructive pulmonary disease, unspecified Is this a current diagnosis for this admission?: YesPlan: Patient does not have any wheezing on exam today. (3) Decubitus ulcer Qualifiers: Pressure ulcer location: heel Pressure ulcer stage: unstageable Laterality: right Qualified Code(s): L89.610 - Pressure ulcer of right heel, unstageable Is this a current diagnosis for this admission?: YesPlan: Continue with local wound care. (4) Diabetes mellitus type II, uncontrolled Qualifiers: Diabetes mellitus complication status: with circulatory complication Diabetes mellitus complication detail: with peripheral angiopathy with gangrene Diabetes mellitus penitentiary insulin use: with penitentiary use Qualified Code(s): E11.52 - Type 2 diabetes mellitus with diabetic peripheral angiopathy with gangrene; E11.65 - Type 2 diabetes mellitus with hyperglycemia; Z79.4 - manager terminal (current) use of insulin Is this a current diagnosis for this admission?: YesPlan: Continue with Lantus and sliding scale insulin. (5) Hyperlipidemia Qualifiers: Hyperlipidemia type: unspecified Qualified Code(s): E78.5 - Hyperlipidemia, unspecified Is this a current diagnosis for this admission?: YesPlan: Continue with Lipitor. (6) Hypertension Qualifiers: Hypertension type: essential hypertension Qualified Code(s): I10 - Essential (primary) hypertension Is this a current diagnosis for this admission?: YesPlan: Continue metoprolol. (7) Chronic anticoagulation Is this a current diagnosis for this admission?: YesPlan: Patient was on Coumadin prior to presentation for history of DVT. (8) Afib Qualifiers: Atrial fibrillation type: chronic Qualified Code(s): I48.2 - Chronic atrial fibrillation Is this a current diagnosis for this admission?: YesPlan: Patient is in a regular rhythm. Continue with amiodarone. 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 (10) Hypothyroidism Qualifiers: Hypothyroidism type: unspecified Qualified Code(s): E03.9 - Hypothyroidism, unspecified Is this a current diagnosis for this admission?: YesPlan: Continue Synthroid. (11) Peripheral vascular disease Is this a current diagnosis for this admission?: YesPlan: Patient has a history of amputations bilaterally. (12) CKD (chronic kidney disease) stage 3, GFR 30-59 ml/min Is this a current diagnosis for this admission?: YesPlan: Creatinine has remained stable. (13) Coronary artery disease Qualifiers: Coronary Disease-Associated Artery/Lesion type: [place] artery [place] vs. transplanted heart: [place] heart Associated angina: without angina Qualified Code(s): I25.10 - Atherosclerotic heart disease of [place] coronary artery without angina pectoris Is this a current diagnosis for this admission?: Yes (14) History of DVT (deep vein thrombosis) Is this a current diagnosis for this admission?: YesPlan: Patient has been on Coumadin previously. (15) HAKAN (obstructive sleep apnea) Is this a current diagnosis for this admission?: Yes - Time Time Spent with patient: 25-34 minutes - Inpatient Certification Medical Necessity: Need Close Monitoring Due to Risk of Patient Decompensation - Plan Summary Plan Summary: Gastroenterology is to evaluate the patient today.
[2016-11-08] MEDS: NORMAL SALINE 1000 ML 1,000 ML IV PRN (13:25)
[2016-11-08] MEDS ORDERED: MIDAZOLAM 2 MG/2 ML INJ ONE (15:42)
[2016-11-08] MEDS ORDERED: NALOXONE HCL INJ/PF 0.4 MG/1 ML SDV ONE (15:42)
[2016-11-08] MEDS ORDERED: PROMETHAZINE HCL INJ 25 MG/1 ML VIAL ONE (15:42)
[2016-11-08] MEDS ORDERED: FENTANYL CITRATE INJ/PF 100 MCG/2 ML AMPUL ONE (15:43)
[2016-11-08] MEDS ORDERED: EPINEPHRINE INJ 1 MG/10 ML DISP.SYRIN ONE (15:43)
[2016-11-08] MEDS ORDERED: GLUCAGON,HUMAN RECOMB 1 MG INJ ONE (15:43)
[2016-11-08] MEDS ORDERED: FLUMAZENIL INJ 0.5 MG/5 ML VIAL IV ONE (15:43)
--- NOTE | 2016-11-08 17:21 | PDOC CONSULTATION ---
Consultation Consult Date: 11/07/16 History of Present Illness Admission Date/PCP: 11/06/16 02:41 History of Present Illness: This is a 66-year-old patient who [facility] with hematemesis. According to the patient he only vomited BLOOD once. He had 2 small episodes in the emergency room. His hemoglobin has been stable at about 9.4. He had an EGD and colonoscopy by Dr. Trotter on 10/25/2016 which showed multiple colon polyps and some gastritis. He was taking Pepcid prior to being admitted Past Medical History Cardiac Medical History: Reports: Atrial Fibrillation, Congestive Heart Failure , Coronary Artery Disease - S/P CABG 2000, DVT - right leg, Myocardial Infarction, Hyperlipidema, Hypertension, Peripheral Vascular Disease Pulmonary Medical History: Reports: Chronic Obstructive Pulmonary Disease (COPD) , Intubation, Respiratory Failure, Sleep Apnea Denies: Asthma, Bronchitis, Pneumonia EENT Medical History: Reports: Eyes - Glasses Neurological Medical History: Denies: Seizures Endocrine Medical History: Reports: Diabetes Mellitus Type 2, Hypothyroidism GI Medical History: Reports: Cirrhosis Musculoskeltal Medical History: Reports: Arthritis, Other - Status post left BKA and right TMA due to peripheral vascular disease/diabetes. Psychiatric Medical History: Denies: Depression Hematology: Reports: Anemia Infectious Medical History: 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 Past Surgical History Past Surgical History: Reports: Cholecystectomy, Coronary Artery Bypass Graft - 3 vessel CABG in 1999, Orthopedic Surgery - Left BKA and right transmetatarsal amputations, Pacemaker, Tonsillectomy Social History Lives with: Intermediate Smoking Status: Former Smoker Last Time Smoked: 2002 Frequency of Alcohol Use: None Hx Recreational Drug Use: No Drugs: None Hx Prescription Drug Abuse: No - Advance Directive Resuscitation Status: Full Code Family History Family History: CAD, DM, Other - Obesity, asthma. Parental Family History Reviewed: No Children Family History Reviewed: NA Sibling(s) Family History Reviewed.: NA Medication/Allergy Home Medications: Amiodarone HCl [Cordarone 200 mg Tablet] 100 mg PO DAILY 06/02/15 Aspirin [Aspirin EC] 81 mg PO DAILY 06/02/15 Atorvastatin Calcium [Lipitor] 40 mg PO QHS 06/02/15 Multivitamin [Daily Vitamin] 1 each PO DAILY 06/02/15 Fenofibrate Nanocrystallized [Tricor] 1 tab PO DAILY 07/12/16 Fluticasone/Salmeterol [Advair 250-50 Diskus 28 dose] 1 puff IH BID 07/12/16 Furosemide [Lasix] 60 mg PO BID 07/12/16 Insulin Glargine,Hum.rec.anlog [Lantus] 30 units SUBCUT QHS 07/12/16 Magnesium Oxide 1 tab PO DAILY 07/12/16 Insulin Lispro [Humalog] 5 units SUBCUT TID 08/21/16 Metoprolol Succinate [Toprol Xl 50 mg Tab.sr] 1 tab PO DAILY 08/21/16 Lorazepam [Ativan 0.5 mg Tablet] 0.5 mg PO Q4HP PRN #30 tablet 09/01/16 Oxycodone HCl [Oxy-Ir 5 mg Tablet] 5 mg PO Q6HP PRN #0 tablet 09/01/16 Clopidogrel Bisulfate [Plavix 75 mg Tablet] 75 mg PO DAILY 10/24/16 Epoetin Jordan [Procrit] 20,000 unit IJ ASDIR 10/24/16 Famotidine [Pepcid 20 mg Tablet] 20 mg PO DAILY 10/24/16 Levothyroxine Sodium [Synthroid] 100 mcg PO DAILY 10/24/16 Ondansetron HCl [Zofran 4 mg Tablet] 1 tab PO ASDIR PRN 10/24/16 Sennosides/Docusate Sodium [Docusate Sodium-Senna Tablet] 2 each PO QHS Spironolact/Hydrochlorothiazid [Aldactazide 25-25 Tablet] 1 each PO DAILY Tamsulosin HCl [Flomax 0.4 mg Cap.sr] 0.4 mg PO DAILY 10/24/16 Tiotropium [place] [Spiriva Handihaler 18 mcg/dose (30 Dose)] 1 cap IH DAILY Warfarin Sodium [Coumadin 1 mg Tablet] 1 mg PO ASDIR 10/24/16 Albuterol Sulfate [Proair HFA] 2 puff IH Q4H PRN 11/06/16 Cholecalciferol (Vitamin D3) [Vitamin D] 50,000 unit PO ASDIR PRN 11/06/16 Insulin Lispro [Humalog] 100 unit SQ ASDIR PRN 11/06/16 Warfarin Sodium [Coumadin 1 mg Tablet] 0.5 mg PO QHS 11/06/16 Allergies/Adverse Reactions: iodine [Iodine] Allergy (Verified 11/06/16 01:26) hydrocodone bitartrate [From Vicodin] Adverse Reaction (Mild, Verified 11/06/16 01:26) VOMITING Review of Systems All systems: reviewed and no additional remarkable complaints except as stated Physical Exam Vital Signs: Temp Pulse Resp BP Pulse Ox 97.3 F 64 13 115/52 L 100 11/08/16 15:22 11/08/16 17:10 11/08/16 17:10 11/08/16 17:10 11/08/16 17:10 Intake & Output 11/07/16 11/08/16 11/09/16 06:59 06:59 06:59 Intake Total 962 1717 100 Output Total 1500 1750 400 Balance -538 -33 -300 Weight 95 kg 93.1 kg Exam: General: Patient is alert and looks well. HEENT: There is pallor but no jaundice. PERRLA. Oropharynx normal Respiratory: No chest deformity. No respiratory distress. Chest wall palpitation was unremarkable. Breath sounds were normal Cardiovascular: Heart sounds 1 and 2 normal with no murmurs. Abdominal: Not distended. Soft and nontender. Liver and spleen not palpable. No ascites demonstrated. Bowel sounds active. Rectal examination was deferred. Extremities: He has evidence of previous amputation Neurological: Alert and oriented x4. Not fully examined. Normal speech Skin: No significant rash Psychological: Normal affect Results Laboratory Results: 11/08/16 04:15 11/06/16 06:38 11/08/16 04:15 WBC 16.1 H RBC 3.09 L Hgb 9.4 L Hct 27.6 L MCV 90 MCH 30.4 MCHC 34.0 RDW 14.5 H Plt Count 218 Impressions: Chest X-Ray 11/06/16 00:00 IMPRESSION: NO ACUTE CARDIOPULMONARY PROCESS. NO SIGNIFICANT CHANGE FROM PRIOR STUDY. KUB X-Ray 11/06/16 00:00 IMPRESSION: NO RADIOGRAPHIC EVIDENCE FOR ACUTE ABDOMINAL DISEASE. Assessment & Plan - Diagnosis (1) Coffee ground emesis Is this a current diagnosis for this admission?: YesPlan: Differential diagnoses include [place] tear, esophagitis, or gastric ulcers. He will undergo an EGD for further evaluation. His recent EGD only showed gastritis (2) Upper GI bleed Is this a current diagnosis for this admission?: Yes (3) Acute on chronic kidney failure Is this a current diagnosis for this admission?: Yes
--- NOTE | 2016-11-08 17:22 | Operative Report ---
Operative Report DATE OF SURGERY: 11/08/16 Operative Report: Pre-op diagnosis: Hematemesis Post-op diagnosis: Gastritis and ulceration involving the gastric cardia and fundus Surgery: Esophagogastroduodenoscopy with biopsy Medications: Versed 2 mg Fentanyl 50 mcg IV push Tissue removed: Gastric biopsy for pathology Procedure: After informed consent obtained from patient, the throat was sprayed with Hurricane and conscious sedation was achieved. The upper endoscope was inserted into the esophagus under direct vision and advanced into the stomach. The duodenum was entered and examined to the second part. Endoscope was then slowly pulled out of the patient as the mucosa was examined into details. Patient tolerated procedure well. Findings Esophagus: Normal Z-line at:40cm Antrum: Normal Body: Normal Fundus: Marked erythema with superficial ulcerations noted in the gastric cardia and the fundus. This may be from recurrent herniation of this part of the stomach above the diaphragm Duodenum first part: Normal Duodenum second part: Normal Plan: Await pathology. Continue pantoprazole twice a day OPERATION: .
[2016-11-08] MEDS: NYSTATIN TOPICAL POWDER 15 GM TP SCH (18:12)
[2016-11-08] MEDS: ATORVASTATIN CALCIUM 40 MG TABLET PO SCH (21:23)
[2016-11-08] MEDS: FLUTICASONE NASAL SPRAY 50 MCG/SPRY 120 SPRAY/16 GM NASL SCH (21:23)
[2016-11-08] MEDS: INSULIN GLARGINE,HUM.REC.ANLOG 300 UNIT/3 ML INSULN.PEN SUBCUT SCH (21:28)
[2016-11-08] MEDS: LANSOPRAZOLE 30 MG TAB.RAP.DR PO SCH (23:30)
[2016-11-09 05:46] LABS: ABSOLUTE BASOPHILS # (AUTO) 0.1 10^3/uL (0.0-0.2); ABSOLUTE EOSINOPHILS # (AUTO) 0.2 10^3/uL (0.0-0.6); ABSOLUTE LYMPHOCYTES (AUTO) 0.8 10^3/uL (0.5-4.7); ABSOLUTE MONOCYTES (AUTO) 0.6 10^3/uL (0.1-1.4); BASOPHILS % (AUTO) 0.7 % (0-2); HEMATOCRIT 27.3 % (37.9-51.0); HEMOGLOBIN 9.3 g/dL (13.5-17.0); HGB HCT DIFFERENCE 0.6; LYMPHOCYTES % (AUTO) 6.6 % (13-45); MEAN CORPUSCULAR HEMOGLOBIN 30.9 pg (27.0-33.4); MEAN CORPUSCULAR VOLUME 91 fl (80-97); RED CELL DISTRIBUTION WIDTH 14.4 % (11.5-14.0); SEGMENTED NEUTROPHILS % (AUTO) 85.7 % (42-78); WHITE BLOOD COUNT 11.7 10^3/uL (4.0-10.5)
[2016-11-09] MEDS: NORMAL SALINE 1000 ML 1,000 ML IV PRN (05:50)
[2016-11-09 05:52] LABS: ANION GAP 13 (5-19); BLOOD UREA NITROGEN 26 mg/dL (7-20); CARBON DIOXIDE 28 mmol/L (22-30); CHLORIDE 100 mmol/L (98-107); CREATININE RESULT 1.07 mg/dL (0.52-1.25); GLUCOSE 84 mg/dL (75-110); POTASSIUM 3.9 mmol/L (3.6-5.0); SODIUM 141.4 mmol/L (137-145)
[2016-11-09] MEDS ORDERED: LANSOPRAZOLE 30 MG TAB.RAP.DR PO ONE (08:00)
[2016-11-09] MEDS: DOCUSATE SODIUM 100 MG CAPSULE PO SCH ×2 (09:03→22:33)
[2016-11-09] MEDS: MULTIVITAMIN TABLET PO SCH (09:03)
[2016-11-09] MEDS: FUROSEMIDE 40 MG TABLET PO SCH ×2 (09:03→22:34)
[2016-11-09] MEDS: METOPROLOL SUCCINATE 50 MG TAB.SR.24H PO SCH (09:04)
[2016-11-09] MEDS: MAGNESIUM OXIDE 400 MG TABLET PO SCH (09:04)
[2016-11-09] MEDS: TAMSULOSIN HCL 0.4 MG CAP.SR.24H PO SCH (09:04)
[2016-11-09] MEDS: AMIODARONE HCL 200 MG TABLET PO SCH (09:04)
[2016-11-09] MEDS: LEVOTHYROXINE SODIUM 0.1 MG TABLET PO SCH (09:04)
[2016-11-09] MEDS: FLUTICASONE NASAL SPRAY 50 MCG/SPRY 120 SPRAY/16 GM NASL SCH ×2 (09:04→22:33)
[2016-11-09] MEDS: TIOTROPIUM BROMIDE DPI 5 CAP/KIT (18 MCG/CAP) IH SCH (09:05)
[2016-11-09] MEDS: FLUTICASONE/SALMETEROL DISKUS 250-50 MCG/DOSE IH SCH ×2 (09:05→22:33)
[2016-11-09] MEDS: NYSTATIN TOPICAL POWDER 15 GM TP SCH ×2 (09:08→22:34)
[2016-11-09] MEDS: ERTAPENEM SODIUM 1 GM in NORMAL SALINE 50 ML IV SCH (09:11)
--- NOTE | 2016-11-09 13:30 | PDOC PROGRESS REPORT ---
Subjective Progress Note for:: 11/09/16 Subjective:: The patient reports having constipation. Physical Exam Vital Signs: Temp Pulse Resp BP Pulse Ox 98.1 F 75 16 142/66 H 100 11/09/16 11:51 11/09/16 11:51 11/09/16 11:51 11/09/16 11:51 11/09/16 11:51 Intake & Output 11/08/16 11/09/16 11/10/16 06:59 06:59 06:59 Intake Total 1717 2008 Output Total 1750 1200 Balance -33 809 Weight 93.1 kg General appearance: PRESENT: no acute distress Eye exam: PRESENT: conjunctiva pink Mouth exam: PRESENT: moist, tongue midline Neck exam: ABSENT: JVD Respiratory exam: PRESENT: clear to auscultation karthikeyan. ABSENT: rales, rhonchi, wheezes Cardiovascular exam: PRESENT: RRR. ABSENT: diastolic murmur, rubs, systolic murmur GI/Abdominal exam: PRESENT: normal bowel sounds, soft, tenderness - Mild lower abdominal tenderness.. ABSENT: distended, guarding, mass, organolmegaly, rebound Extremities exam: PRESENT: other - Patient has a left BKA and a right transmetatarsal amputation. ABSENT: calf tenderness, clubbing Neurological exam: PRESENT: alert, awake, oriented to person, oriented to place , oriented to time, oriented to situation Psychiatric exam: PRESENT: appropriate affect Skin exam: PRESENT: other - Erythematous groin Results Laboratory Results: 11/09/16 04:41 11/09/16 04:41 11/09/16 11/09/16 04:41 04:41 WBC 11.7 H RBC 3.00 L Hgb 9.3 L Hct 27.3 L MCV 91 MCH 30.9 MCHC 34.0 RDW 14.4 H Plt Count 221 Seg Neutrophils % 85.7 H Lymphocytes % 6.6 L Monocytes % 5.0 Eosinophils % 2.0 Basophils % 0.7 Absolute Neutrophils 10.0 H Absolute Lymphocytes 0.8 Absolute Monocytes 0.6 Absolute Eosinophils 0.2 Absolute Basophils 0.1 Sodium 141.4 Potassium 3.9 Chloride 100 Carbon Dioxide 28 Anion Gap 13 BUN 26 H Creatinine 1.07 Est GFR ( Amer) > 60 Est GFR (Non-Af Amer) > 60 Glucose 84 Calcium 9.0 11/07/16 18:50 Eye - Drainage Gram Stain - Final 11/07/16 18:15 Catheterized Urine Urine Culture - Final Proteus Mirabilis Impressions: Chest X-Ray 11/06/16 00:00 IMPRESSION: NO ACUTE CARDIOPULMONARY PROCESS. NO SIGNIFICANT CHANGE FROM PRIOR STUDY. KUB X-Ray 11/06/16 00:00 IMPRESSION: NO RADIOGRAPHIC EVIDENCE FOR ACUTE ABDOMINAL DISEASE. Assessment & Plan - Diagnosis (1) Anemia Qualifiers: Iron deficiency anemia type: chronic blood loss Is this a current diagnosis for this admission?: YesPlan: Patient's hemoglobin has remained stable. Patient had an EGD yesterday which showed gastritis and ulcer that was nonbleeding in the stomach. (2) COPD (chronic obstructive pulmonary disease) Qualifiers: COPD type: unspecified COPD Qualified Code(s): J44.9 - Chronic obstructive pulmonary disease, unspecified Is this a current diagnosis for this admission?: YesPlan: Patient does not have any wheezing on exam today. (3) Decubitus ulcer Qualifiers: Pressure ulcer location: heel Pressure ulcer stage: unstageable Laterality: right Qualified Code(s): L89.610 - Pressure ulcer of right heel, unstageable Is this a current diagnosis for this admission?: YesPlan: Continue with local wound care. (4) Diabetes mellitus type II, uncontrolled Qualifiers: Diabetes mellitus complication status: with circulatory complication Diabetes mellitus complication detail: with peripheral angiopathy with gangrene Diabetes mellitus halfway insulin use: with [employer] principal use Qualified Code(s): E11.52 - Type 2 diabetes mellitus with diabetic peripheral angiopathy with gangrene; E11.65 - Type 2 diabetes mellitus with hyperglycemia; Z79.4 - correction (current) use of insulin Is this a current diagnosis for this admission?: YesPlan: Continue with Lantus and sliding scale insulin. (5) Hyperlipidemia Qualifiers: Hyperlipidemia type: unspecified Qualified Code(s): E78.5 - Hyperlipidemia, unspecified Is this a current diagnosis for this admission?: YesPlan: Continue with Lipitor. (6) Hypertension Qualifiers: Hypertension type: essential hypertension Qualified Code(s): I10 - Essential (primary) hypertension Is this a current diagnosis for this admission?: YesPlan: Continue metoprolol. (7) Chronic anticoagulation Is this a current diagnosis for this admission?: YesPlan: Patient was on Coumadin prior to presentation for history of DVT. (8) Afib Qualifiers: Atrial fibrillation type: chronic Qualified Code(s): I48.2 - Chronic atrial fibrillation Is this a current diagnosis for this admission?: YesPlan: Patient is in a regular rhythm. Continue with amiodarone. 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 (10) Hypothyroidism Qualifiers: Hypothyroidism type: unspecified Qualified Code(s): E03.9 - Hypothyroidism, unspecified Is this a current diagnosis for this admission?: YesPlan: Continue Synthroid. (11) Peripheral vascular disease Is this a current diagnosis for this admission?: YesPlan: Patient has a history of amputations bilaterally. (12) CKD (chronic kidney disease) stage 3, GFR 30-59 ml/min Is this a current diagnosis for this admission?: YesPlan: Creatinine has remained stable. (13) Coronary artery disease Qualifiers: Coronary Disease-Associated Artery/Lesion type: [place] artery [place] vs. transplanted heart: [place] heart Associated angina: without angina Qualified Code(s): I25.10 - Atherosclerotic heart disease of [place] coronary artery without angina pectoris Is this a current diagnosis for this admission?: Yes (14) History of DVT (deep vein thrombosis) Is this a current diagnosis for this admission?: YesPlan: Patient has been on Coumadin previously. (15) HAKAN (obstructive sleep apnea) Is this a current diagnosis for this admission?: Yes - Time Time Spent with patient: 25-34 minutes - Inpatient Certification Medical Necessity: Need Close Monitoring Due to Risk of Patient Decompensation - Plan Summary Plan Summary: If he does well overnight we can discharge back to [facility] tomorrow morning.
[2016-11-09] MEDS: PROMETHAZINE HCL INJ 25 MG/1 ML VIAL IV PRN (13:44)
[2016-11-09] MEDS: LANSOPRAZOLE 30 MG TAB.RAP.DR PO SCH (16:14)
[2016-11-09] MEDS ORDERED: ONDANSETRON HCL INJ/PF 4 MG/2 ML SDV IV PRN (16:19)
[2016-11-09] MEDS: LACTULOSE SYRUP 20 GM/30 ML UDCUP PO SCH (21:22)
[2016-11-09] MEDS: ATORVASTATIN CALCIUM 40 MG TABLET PO SCH (22:34)
[2016-11-09] MEDS: CEFUROXIME 500 MG TABLET PO SCH (22:34)
[2016-11-09] MEDS: INSULIN GLARGINE,HUM.REC.ANLOG 300 UNIT/3 ML INSULN.PEN SUBCUT SCH (22:38)
[2016-11-10] MEDS: LACTULOSE SYRUP 20 GM/30 ML UDCUP PO SCH ×3 (01:16→13:20)
[2016-11-10] MEDS: NORMAL SALINE 1000 ML 1,000 ML IV PRN (02:08)
[2016-11-10 06:14] LABS: ABSOLUTE EOSINOPHILS # (AUTO) 0.2 10^3/uL (0.0-0.6); ABSOLUTE LYMPHOCYTES (AUTO) 0.8 10^3/uL (0.5-4.7); ABSOLUTE MONOCYTES (AUTO) 0.5 10^3/uL (0.1-1.4); ABSOLUTE NEUT (AUTO) 8.1 10^3/uL (1.7-8.2); BASOPHILS % (AUTO) 0.4 % (0-2); EOSINOPHILS % (AUTO) 2.4 % (0-6); HEMOGLOBIN 9.1 g/dL (13.5-17.0); HGB HCT DIFFERENCE 1.3; LYMPHOCYTES % (AUTO) 8.7 % (13-45); MEAN CORPUSCULAR HEMOGLOBIN 31.2 pg (27.0-33.4); MEAN CORPUSCULAR HGB CONC 34.9 g/dL (32.0-36.0); MEAN CORPUSCULAR VOLUME 90 fl (80-97); MONOCYTES % (AUTO) 5.2 % (3-13); RED CELL DISTRIBUTION WIDTH 14.8 % (11.5-14.0); SEGMENTED NEUTROPHILS % (AUTO) 83.3 % (42-78); WHITE BLOOD COUNT 9.8 10^3/uL (4.0-10.5)
[2016-11-10 06:26] LABS: ANION GAP 8 (5-19); BLOOD UREA NITROGEN 19 mg/dL (7-20); CALCIUM 8.8 mg/dL (8.4-10.2); CARBON DIOXIDE 30 mmol/L (22-30); CHLORIDE 102 mmol/L (98-107); CREATININE RESULT 0.97 mg/dL (0.52-1.25); GLUCOSE 93 mg/dL (75-110); POTASSIUM 3.8 mmol/L (3.6-5.0); SODIUM 139.7 mmol/L (137-145)
[2016-11-10] MEDS: METOPROLOL SUCCINATE 50 MG TAB.SR.24H PO SCH (09:02)
[2016-11-10] MEDS: FUROSEMIDE 40 MG TABLET PO SCH (09:02)
[2016-11-10] MEDS: LEVOTHYROXINE SODIUM 0.1 MG TABLET PO SCH (09:02)
[2016-11-10] MEDS: MAGNESIUM OXIDE 400 MG TABLET PO SCH (09:02)
[2016-11-10] MEDS: AMIODARONE HCL 200 MG TABLET PO SCH (09:02)
[2016-11-10] MEDS: TAMSULOSIN HCL 0.4 MG CAP.SR.24H PO SCH (09:02)
[2016-11-10] MEDS: DOCUSATE SODIUM 100 MG CAPSULE PO SCH (09:03)
[2016-11-10] MEDS: MULTIVITAMIN TABLET PO SCH (09:03)
[2016-11-10] MEDS: LANSOPRAZOLE 30 MG TAB.RAP.DR PO SCH ×2 (09:03→16:12)
[2016-11-10] MEDS: TIOTROPIUM BROMIDE DPI 5 CAP/KIT (18 MCG/CAP) IH SCH (09:05)
[2016-11-10] MEDS: CEFUROXIME 500 MG TABLET PO SCH (09:06)
[2016-11-10] MEDS: NYSTATIN TOPICAL POWDER 15 GM TP SCH (09:07)
[2016-11-10] MEDS: FLUTICASONE NASAL SPRAY 50 MCG/SPRY 120 SPRAY/16 GM NASL SCH (09:07)
[2016-11-10] MEDS: FLUTICASONE/SALMETEROL DISKUS 250-50 MCG/DOSE IH SCH (09:07)
--- NOTE | 2016-11-10 10:17 | PDOC DISCHARGE SUMMARY ---
General - Admit/Disc Date/PCP Admission Date/Primary Care Provider: 11/06/16 02:41 Discharge Date: 11/10/16 - Discharge Diagnosis (1) Anemia Is this a current diagnosis for this admission?: YesSummary: Secondary to acute GI bleed because of gastritis. (2) COPD (chronic obstructive pulmonary disease) Is this a current diagnosis for this admission?: Yes (3) Decubitus ulcer Is this a current diagnosis for this admission?: Yes (4) Diabetes mellitus type II, uncontrolled Is this a current diagnosis for this admission?: Yes (5) Hyperlipidemia Is this a current diagnosis for this admission?: Yes (6) Hypertension Is this a current diagnosis for this admission?: Yes (7) Chronic anticoagulation Is this a current diagnosis for this admission?: YesSummary: Stopped because of the acute GI bleed. Patient has been restarted on Plavix but the aspirin and Coumadin are being held for now. (8) Afib Is this a current diagnosis for this admission?: YesSummary: Patient has been on Coumadin which is being held because of the GI bleeding. (9) Congestive heart failure (CHF) Is this a current diagnosis for this admission?: Yes (10) Hypothyroidism Is this a current diagnosis for this admission?: Yes (11) Peripheral vascular disease Is this a current diagnosis for this admission?: Yes (12) CKD (chronic kidney disease) stage 3, GFR 30-59 ml/min Is this a current diagnosis for this admission?: Yes (13) Coronary artery disease Is this a current diagnosis for this admission?: Yes (14) History of DVT (deep vein thrombosis) Is this a current diagnosis for this admission?: Yes (15) HAKAN (obstructive sleep apnea) Is this a current diagnosis for this admission?: Yes - Additional Information Resuscitation Status: Full Code Discharge Diet: Diabetic Discharge Activity: Activity As Tolerated Home Medications: Amiodarone HCl [Cordarone 200 mg Tablet] 100 mg PO DAILY 06/02/15 Atorvastatin Calcium [Lipitor] 40 mg PO QHS 06/02/15 Multivitamin [Daily Vitamin] 1 each PO DAILY 06/02/15 Fenofibrate Nanocrystallized [Tricor] 1 tab PO DAILY 07/12/16 Fluticasone/Salmeterol [Advair 250-50 Diskus 28 dose] 1 puff IH BID 07/12/16 Furosemide [Lasix] 60 mg PO BID 07/12/16 Insulin Glargine,Hum.rec.anlog [Lantus] 30 units SUBCUT QHS 07/12/16 Magnesium Oxide 1 tab PO DAILY 07/12/16 Insulin Lispro [Humalog] 5 units SUBCUT TID 08/21/16 Metoprolol Succinate [Toprol Xl 50 mg Tab.sr] 1 tab PO DAILY 08/21/16 Lorazepam [Ativan 0.5 mg Tablet] 0.5 mg PO Q4HP PRN #30 tablet 09/01/16 Clopidogrel Bisulfate [Plavix 75 mg Tablet] 75 mg PO DAILY 10/24/16 Epoetin [place] [Procrit Inj 20,000 Unit/1 ml Vial (Renal)] 20,000 unit IJ ASDIR Levothyroxine Sodium [Synthroid] 100 mcg PO DAILY 10/24/16 Ondansetron HCl [Zofran 4 mg Tablet] 1 tab PO ASDIR PRN 10/24/16 Sennosides/Docusate Sodium [Docusate Sodium-Senna Tablet] 2 each PO QHS Spironolact/Hydrochlorothiazid [Aldactazide 25-25 Tablet] 1 each PO DAILY Tamsulosin HCl [Flomax 0.4 mg Cap.sr] 0.4 mg PO DAILY 10/24/16 Tiotropium [place] [Spiriva Handihaler 18 mcg/dose (30 Dose)] 1 cap IH DAILY Albuterol Sulfate [Proair HFA] 2 puff IH Q4H PRN 11/06/16 Cholecalciferol (Vitamin D3) [Vitamin D3] 50,000 unit PO ASDIR PRN 11/06/16 Insulin Lispro [Humalog] 100 unit SQ ASDIR PRN 11/06/16 Cefuroxime Axetil [Ceftin 500 mg Tablet] 500 mg PO Q12 #14 tablet 11/10/16 Lactulose [Cephulac Syrup 20 gm/30 ml Udcup] 20 gm PO Q6 udc 11/10/16 Lansoprazole [Prevacid 30 mg Odt Tablet] 30 mg PO BIDACBS tabArmidarap 11/10/16 Oxycodone HCl [Oxy-Ir 5 mg Tablet] 5 mg PO Q6HP PRN #30 tablet 11/10/16 History of Present Illness History of Present Illness: MAYRA JAY is a 66 year old male who is a resident of [facility] who has multiple medical problems including COPD, congestive heart failure and chronic renal failure in addition to diabetes and severe peripheral vascular disease. The patient had an episode of coffee-ground emesis and was transported to the hospital for further evaluation. Patient was on aspirin, Plavix as well as Coumadin because of his vascular disease and atrial fibrillation as well as a history of DVT. Hospital Course Hospital Course: 66-year-old male with a history of atrial fibrillation as well as severe peripheral vascular disease who was on aspirin, Plavix as well as Coumadin. He presented with coffee-ground emesis and was transported to the emergency room for further evaluation. The patient had no further episode of bleeding and did not require blood transfusion. The patient was evaluated by gastroenterology who performed EGD and he was found to have gastritis but no obvious active bleeding. Patient had been on Pepcid prior to admission and he was changed to proton pump inhibitor. The patient's hemoglobin remained stable was felt that he could be transferred back to [facility]. The patient was restarted on Plavix however his aspirin and his Coumadin will be held. He may need to restart these in the near future however we will monitor his hemoglobin to make certain it remained stable and that he has time to heal from his gastritis. He has a chronic indwelling Morse and grew out Proteus from his urine culture. He will be sent home on Ceftin and complete a course. The rest of his medical problems were stable during this hospitalization. Physical Exam Vital Signs: Temp Pulse Resp BP Pulse Ox 98.3 F 67 19 121/62 100 11/10/16 03:59 11/10/16 07:52 11/10/16 07:52 11/10/16 07:52 11/10/16 07:52 Intake & Output 11/09/16 11/10/16 11/11/16 06:59 06:59 06:59 Intake Total 2008 2625 Output Total 1200 1550 Balance 809 1075 Weight 96.4 kg General appearance: PRESENT: no acute distress Head exam: PRESENT: atraumatic, normocephalic Eye exam: PRESENT: conjunctiva pink Mouth exam: PRESENT: moist, tongue midline Neck exam: ABSENT: JVD Respiratory exam: PRESENT: clear to auscultation karthikeyan. ABSENT: rales, rhonchi, wheezes Cardiovascular exam: PRESENT: RRR. ABSENT: diastolic murmur, rubs, systolic murmur GI/Abdominal exam: PRESENT: normal bowel sounds, soft. ABSENT: distended, guarding, mass, organolmegaly, rebound, tenderness Extremities exam: PRESENT: other - Status post left BKA. Status post right transmetatarsal amputation Neurological exam: PRESENT: alert, awake, oriented to person, oriented to place , oriented to time, oriented to situation Psychiatric exam: PRESENT: appropriate affect Results Laboratory Results: 11/10/16 05:15 11/10/16 05:15 11/10/16 11/10/16 05:15 05:15 WBC 9.8 RBC 2.90 L Hgb 9.1 L Hct 26.0 L MCV 90 MCH 31.2 MCHC 34.9 RDW 14.8 H Plt Count 200 Seg Neutrophils % 83.3 H Lymphocytes % 8.7 L Monocytes % 5.2 Eosinophils % 2.4 Basophils % 0.4 Absolute Neutrophils 8.1 Absolute Lymphocytes 0.8 Absolute Monocytes 0.5 Absolute Eosinophils 0.2 Absolute Basophils 0.0 Sodium 139.7 Potassium 3.8 Chloride 102 Carbon Dioxide 30 Anion Gap 8 BUN 19 Creatinine 0.97 Est GFR ( Amer) > 60 Est GFR (Non-Af Amer) > 60 Glucose 93 Calcium 8.8 11/07/16 18:50 Eye - Drainage Gram Stain - Final 11/07/16 18:15 Catheterized Urine Urine Culture - Final Proteus Mirabilis Impressions: Chest X-Ray 11/06/16 00:00 IMPRESSION: NO ACUTE CARDIOPULMONARY PROCESS. NO SIGNIFICANT CHANGE FROM PRIOR STUDY. KUB X-Ray 11/06/16 00:00 IMPRESSION: NO RADIOGRAPHIC EVIDENCE FOR ACUTE ABDOMINAL DISEASE. Qualifiers PATEINT BEING DISCHARGED WITH ANY OF THE FOLLOWING DIAGNOSIS?: No Plan Discharge Plan: We'll be transferred back to [facility]. Follow-up with primary care in 1 week. Will need a CBC at follow-up. Time Spent: Greater than 30 Minutes
[2016-11-10 16:40] VITALS: BP 115/60
== END 2016-11-10 17:00 | DRG 378 ==
LOC: ER 21:16 → UNDOADMIN 11-06 02:34 → EH 11-06 02:34 → 3N 11-06 05:26
PROVIDERS: ADMIT Family Medicine; ATTEND Family Medicine
PROC: 0DB68ZX Excision of Stomach, Via Natural or Artificial Opening Endoscopic, Diagnostic (ICD-10-PCS; principal; 2016-11-08 16:00)
DX: K29.61 Other gastritis with bleeding (principal); N39.0 Urinary tract infection, site not specified; T83.511A Infection and inflammatory reaction due to indwelling urethral catheter, initial encounter; J96.11 Chronic respiratory failure with hypoxia; I13.0 Hypertensive heart and chronic kidney disease with heart failure and stage 1 through stage 4 chronic kidney disease, or unspecified chronic kidney disease; I50.42 Chronic combined systolic (congestive) and diastolic (congestive) heart failure; E11.52 Type 2 diabetes mellitus with diabetic peripheral angiopathy with gangrene; J44.9 Chronic obstructive pulmonary disease, unspecified; K22.11 Ulcer of esophagus with bleeding; E78.5 Hyperlipidemia, unspecified; I48.2 Chronic atrial fibrillation; B96.4 Proteus (mirabilis) (morganii) as the cause of diseases classified elsewhere; E03.9 Hypothyroidism, unspecified; I25.10 Atherosclerotic heart disease of native coronary artery without angina pectoris; G47.33 Obstructive sleep apnea (adult) (pediatric); L89.610 Pressure ulcer of right heel, unstageable; E11.22 Type 2 diabetes mellitus with diabetic chronic kidney disease; D50.0 Iron deficiency anemia secondary to blood loss (chronic); N18.3 Chronic kidney disease, stage 3 (moderate); E11.65 Type 2 diabetes mellitus with hyperglycemia; Z89.431 Acquired absence of right foot; Z95.0 Presence of cardiac pacemaker; Z79.4 Long term (current) use of insulin; Z79.82 Long term (current) use of aspirin; Z86.010 Personal history of colon polyps; Z99.81 Dependence on supplemental oxygen; Z89.512 Acquired absence of left leg below knee; Z95.1 Presence of aortocoronary bypass graft; Z87.891 Personal history of nicotine dependence; Z86.711 Personal history of pulmonary embolism; Z79.01 Long term (current) use of anticoagulants; Z79.02 Long term (current) use of antithrombotics/antiplatelets; Z86.718 Personal history of other venous thrombosis and embolism; Z83.3 Family history of diabetes mellitus; Z82.5 Family history of asthma and other chronic lower respiratory diseases; Z82.49 Family history of ischemic heart disease and other diseases of the circulatory system; Y84.6 Urinary catheterization as the cause of abnormal reaction of the patient, or of later complication, without mention of misadventure at the time of the procedure; Y92.128 Other place in nursing home as the place of occurrence of the external cause
CPT/HCPCS: 36415; 43239; 71010; 74000; 80048; 80053; 81001; 82728; 82962; 83540; 83550; 83735; 83880; 84439; 84443; 85025; 85027; 85610; 85730; 86850; 86900; 86901; 87070; 87077; 87086; 87088; 87186; 87205; 88305; 88342; 96365; 96366; 96375; 99285; J0171; J1335; J1610; J1815; J2250; J2310; J2405; J2550; J3010; J3490; J7030; S0164

== ENCOUNTER → 2016-11-25 | Outpatient (CLI) | payer MEDICARE, MEDICAID, OTHER | LOC: CRS 16:36 | PROVIDERS: ATTEND Family Medicine Geriatric Medicine | DX: E03.8 Other specified hypothyroidism (principal) | CPT/HCPCS: 84443 ==

== ENCOUNTER → 2017-02-01 | Outpatient (CLI) | payer MEDICARE, MEDICAID ==
[~2017-02-01] MED LIST: ALBUTEROL SULFATE 0.083% NEB 2.5 MG/3 ML AMPUL NEB ONE
--- NOTE | 2017-02-02 10:18 | PULMONARY FUNCTION TEST ---
DATE OF SERVICE: 02/01/2017 THE VITAL CAPACITY IS MODERATELY DECREASED. THE EXPIRATORY FLOW RATES ARE SEVERELY DECREASED. THE FEV1/VC IS 55%, PREDICTED: 79% LUNG VOLUMES BY NITROGEN WASH OUT METHOD SHOW: TLC IS 49% OF PREDICTED FRC IS 59% OF PREDICTED RV IS 25% OF PREDICTED THE DLCO IS 10.9, 48% OF PREDICTED. THE RV/TLC RATIO IS 19% PREDICTED 39% AFTER BRONCHODILATOR, EXPIRATORY FLOW RATES SHOW SIGNIFICANT IMPROVEMENT. IMPRESSION: GOOD PATIENT EFFORT. SEVERE RESTRICTIVE AND SLIGHT OBSTRUCTIVE DEFECT. DIFFUSING CAPACITY IS SEVERELY DECREASED. SEE BELOW FOR COMPARISON VC FEV1 TLC FRC RV DLCO 09/21/16 2.93 1.69 3.56 2.21 0.63 15.1 02/01/17 2.50 1.38 3.10 2.07 0.60 10.9 CC: ANTONIETTA POSADA NP > MTDD
== END ==
LOC: RT 10:40
PROVIDERS: ATTEND Nurse Practitioner Family
DX: J44.9 Chronic obstructive pulmonary disease, unspecified (principal); J96.20 Acute and chronic respiratory failure, unspecified whether with hypoxia or hypercapnia
CPT/HCPCS: 94729; 94727; 94060; A9270

== ENCOUNTER → 2017-03-02 | Outpatient (CLI) | payer MEDICARE, MEDICAID, OTHER ==
[2017-03-02 18:45] LABS: ALANINE AMINOTRANSFERASE 29 U/L (21-72); ALBUMIN 3.8 g/dL (3.5-5.0); ALKALINE PHOSPHATASE 70 U/L (38-126); ANION GAP 14 (5-19); ASPARTATE AMINO TRANSFERASE 30 U/L (17-59); BILIRUBIN,DIRECT 0.5 mg/dL (0.0-0.4); BILIRUBIN,TOTAL 0.7 mg/dL (0.2-1.3); BLOOD UREA NITROGEN 54 mg/dL (7-20); CALCIUM 9.8 mg/dL (8.4-10.2); CARBON DIOXIDE 34 mmol/L (22-30); CHLORIDE 97 mmol/L (98-107); CREATININE RESULT 1.69 mg/dL (0.52-1.25); GLUCOSE 157 mg/dL (75-110); POTASSIUM 4.1 mmol/L (3.6-5.0)
== END ==
LOC: OD 17:41
PROVIDERS: ATTEND Specialist
DX: N18.9 Chronic kidney disease, unspecified (principal); D63.1 Anemia in chronic kidney disease
CPT/HCPCS: 36415; 80053; 82728; 83540; 83550

== ENCOUNTER → 2017-04-26 | Outpatient (CLI) | payer MEDICARE, MEDICAID, OTHER ==
--- NOTE | 2017-04-26 09:18 | RADIOLOGY REPORT (SQ) ---
EXAM DESCRIPTION: CHEST PA/LAT COMPLETED DATE/TIME: 04/26/2017 8:27 am REASON FOR STUDY: ACUTE RESPIRATORY FAILURE COMPARISON: Multiple chest films dating back to 11/02/2015 EXAM PARAMETERS: NUMBER OF VIEWS: two views TECHNIQUE: Digital Frontal and Lateral radiographic views of the chest acquired. RADIATION DOSE: NA LIMITATIONS: none FINDINGS: LUNGS AND PLEURA: Chronic calcific pleural plaquing over the right lower chest. No pleural effusions. No acute infiltrates. No pneumothorax. MEDIASTINUM AND HILAR STRUCTURES: No masses or contour abnormalities. HEART AND VASCULAR STRUCTURES: Stable mild cardiomegaly and old sternotomy for CABG BONES: No acute findings. HARDWARE: Right-sided dual lead pacemaker OTHER: No other significant finding. IMPRESSION: No acute findings. Stable right chest pleural plaque TECHNICAL DOCUMENTATION: JOB ID: [id number] [employer]- All Rights Reserved
== END ==
LOC: RAD 08:05
PROVIDERS: ATTEND Internal Medicine Critical Care Medicine
DX: J96.00 Acute respiratory failure, unspecified whether with hypoxia or hypercapnia (principal); J44.9 Chronic obstructive pulmonary disease, unspecified; J96.20 Acute and chronic respiratory failure, unspecified whether with hypoxia or hypercapnia
CPT/HCPCS: 71020

== ENCOUNTER → 2017-07-05 | Outpatient (CLI) | payer MEDICARE, MEDICAID ==
--- NOTE | 2017-07-05 15:48 | RADIOLOGY REPORT (SQ) ---
EXAM DESCRIPTION: SHOULDER LEFT 2 OR MORE VIEWS COMPLETED DATE/TIME: 07/05/2017 2:22 pm REASON FOR STUDY: PAIN IN LEFT SHOULDER (M25.512) R25.1 TREMOR, UNSPECIFIED R55 SYNCOPE AND COLLAP SE M54.12 RADICULOPATHY, CERVICAL REGION COMPARISON: None. NUMBER OF VIEWS: Three views. TECHNIQUE: Internal rotation, external rotation, and Y view images acquired of the left shoulder. LIMITATIONS: None. FINDINGS: MINERALIZATION: Osteopenia. BONES: No acute fracture or dislocation. No worrisome bone lesions. JOINTS: No dislocation. VISUALIZED LUNGS AND RIBS: No pneumothorax. No rib fracture. SOFT TISSUES: No radiopaque foreign body. OTHER: No other significant finding. IMPRESSION: NEGATIVE STUDY OF THE LEFT SHOULDER. NO RADIOGRAPHIC EVIDENCE OF ACUTE INJURY. TECHNICAL DOCUMENTATION: JOB ID: [id number] [employer]- All Rights Reserved
--- NOTE | 2017-07-05 15:50 | RADIOLOGY REPORT (SQ) ---
EXAM DESCRIPTION: CHEST PA/LAT COMPLETED DATE/TIME: 07/05/2017 2:22 pm REASON FOR STUDY: COUGH (R05) COMPARISON: Two-view chest 07/05/2017, 04/26/2017 AP chest 11/06/2016 EXAM PARAMETERS: NUMBER OF VIEWS: two views TECHNIQUE: Digital Frontal and Lateral radiographic views of the chest acquired. RADIATION DOSE: NA LIMITATIONS: none FINDINGS: LUNGS AND PLEURA: Calcified pleural plaques bilaterally. No acute infiltrates. No pleura l effusion. No pneumothorax. MEDIASTINUM AND HILAR STRUCTURES: No masses or contour abnormalities. HEART AND VASCULAR STRUCTURES: Stable moderate cardiomegaly. Old sternotomy and CABG. BONES: No acute findings. HARDWARE: Right-sided dual lead pacemaker OTHER: Gaseous distention of the stomach IMPRESSION: Calcified pleural plaques. No acute infiltrates. TECHNICAL DOCUMENTATION: JOB ID: [id number] [employer]- All Rights Reserved
--- NOTE | 2017-07-05 15:59 | RADIOLOGY REPORT (SQ) ---
EXAM DESCRIPTION: CT HEAD WITHOUT COMPLETED DATE/TIME: 07/05/2017 2:53 pm REASON FOR STUDY: TREMOR (R25.1), SYNCOPE AND COLLAPSE (R55) R25.1 TREMOR, UNSPECIFIED R55 SYNCOPE AND COLLAPSE M54.12 RADICULOPATHY, CERVICAL REGION COMPARISON: None. TECHNIQUE: Axial images acquired through the brain without intravenous contrast. Images reviewed wi th bone, brain and subdural windows. Images stored on PACS. All CT scanners at this facility use dose modulation, iterative reconstruction, and/or weight based d osing when appropriate to reduce radiation dose to as low as reasonably achievable (ALARA). [facility]: Dose Right [facility]: CareDose [facility]: Dose Right [facility]: Teradose 4D [facility]: [employer] RADIATION DOSE: Up-to-date CT equipment and radiation dose reduction techniques were employed. CTDIv ol: 49.0 mGy. DLP: 881 mGy-cm. mGy. LIMITATIONS: None. FINDINGS: VENTRICLES: Normal size and contour. CEREBRUM: No masses. No hemorrhage. No midline shift. No evidence for acute infarction. Few scatte red areas of low density in the white matter most likely chronic small vessel ischemic changes. Mild cortical atrophy. CEREBELLUM: No masses. No hemorrhage. No alteration of density. No evidence for acute infarction. Arachnoid cyst versus giant cisterna magna. EXTRAAXIAL SPACES: No fluid collections. No masses. ORBITS AND GLOBE: No intra- or extraconal masses. Normal contour of globe without masses. CALVARIUM: No fracture. PARANASAL SINUSES: No fluid or mucosal thickening. SOFT TISSUES: No mass or hematoma. OTHER: No other significant finding. IMPRESSION: MILD CHRONIC MICROVASCULAR ISCHEMIA. NO ACUTE IMAGING FINDINGS IN THE BRAIN. COMMENT: Quality ID # [id number]: Final reports with documentation of one or more dose reduction techniques (e.g., Automated exposure control, adjustment of the mA and/or kV according to patient size, use of iterative reconstruction technique) TECHNICAL DOCUMENTATION: JOB ID: [id number]- All Rights Reserved
--- NOTE | 2017-07-05 16:05 | RADIOLOGY REPORT (SQ) ---
EXAM DESCRIPTION: CT CERVICAL SPINE WITHOUT COMPLETED DATE/TIME: 07/05/2017 2:53 pm REASON FOR STUDY: TREMOR (R25.1), SYNCOPE AND COLLAPSE (R55), CERVICAL RADICULOPATHY (M54.12) R25.1 TREMOR, UNSPECIFIED R55 SYNCOPE AND COLLAPSE M54.12 RADICULOPATHY, CERVICAL REGION COMPARISON: None. TECHNIQUE: Axial images acquired through the cervical spine without intravenous contrast. Images re viewed with lung, soft tissue and bone windows. Reconstructed coronal and sagittal MPR images review ed. Images stored on PACS. All CT scanners at this facility use dose modulation, iterative reconstruction, and/or weight based d osing when appropriate to reduce radiation dose to as low as reasonably achievable (ALARA). [facility]: Dose Right [facility]: CareDose [facility]: Dose Right [facility]: Teradose 4D [facility]: [employer] RADIATION DOSE: Up-to-date CT equipment and radiation dose reduction techniques were employed. CTDIv ol: 24.6 mGy. DLP: 630 mGy-cm. mGy. LIMITATIONS: None. FINDINGS: ALIGNMENT: Anatomic. MINERALIZATION: Normal. VERTEBRAL BODIES: No fractures or dislocation. DISCS: No significant disc disease. FACETS, LATERAL MASSES, POSTERIOR ELEMENTS: Hypertrophic facet changes are seen on the right at C2-3 and C3-4. HARDWARE: None in the spine. VISUALIZED RIBS: No fractures. LUNG APICES AND SOFT TISSUES: Lung apices unremarkable. There is extensive atherosclerosis with exte nsive atherosclerosis in the carotid arteries. OTHER: No other significant finding. IMPRESSION: 1. No acute abnormality in the cervical spine. 2. Facet arthropathy. 3. Extensive carotid atherosclerosis. TECHNICAL DOCUMENTATION: JOB ID: [id number] Quality ID # [id number]: Final reports with documentation of one or more dose reduction techniques (e.g., Au tomated exposure control, adjustment of the mA and/or kV according to patient size, use of iterative reconstruction technique) 2010 [employer]- All Rights Reserved
== END ==
LOC: SP 13:01
PROVIDERS: ATTEND Specialist
DX: M25.512 Pain in left shoulder (principal); M54.12 Radiculopathy, cervical region; R55 Syncope and collapse; R25.1 Tremor, unspecified; R05 Cough
CPT/HCPCS: 70450; 71020; 72125; 93880

== ENCOUNTER 2017-10-02 16:21 | Emergency (ER) | payer MEDICARE, MEDICAID ==
[2017-10-02] MEDS ORDERED: LIDOCAINE 2% URO-JET 5 ML KIT MM ONE (17:26)
--- NOTE | 2017-10-02 17:26 | ER Document Report ---
ED Blood Sugar Problem - General Mode of Arrival: Medic Information source: Patient TRAVEL OUTSIDE OF THE [place] IN LAST 30 DAYS: No <TATY DUKE - Last Filed: 10/02/17 20:51> <RADHA LINCOLN - Last Filed: 10/02/17 22:05> - General Chief Complaint: High Blood Sugar Stated Complaint: BLOOD SUGAR CONCERNS Time Seen by Provider: 10/02/17 17:16 Notes: Patient is a 67-year-old male who presents to the emergency department today with complaints of elevated blood sugars. Patient is from [facility] and was found to have a BGL of 503 and was administered Humalog and sent here. Patient also complains of bladder spasm with associated pain. Patient has a Morse catheter in place and has had one for quite some time. Patient states depending on who changes the catheter, he sometimes develops this pain. Patient states that his catheter was changed on 09/28. (TATY DUKE) - Related Data Allergies/Adverse Reactions: iodine [Iodine] Allergy (Verified 11/06/16 01:26) hydrocodone bitartrate [From Vicodin] Adverse Reaction (Mild, Verified 11/06/16 01:26) VOMITING Past Medical History - General Information source: Patient - Social History Smoking Status: Never Smoker Cigarette use (# per day): No Chew tobacco use (# tins/day): No Frequency of alcohol use: None Drug Abuse: None Lives with: Family Family History: Reviewed & Not Pertinent, CAD, DM, Hyperlipidemia, Hypertension , Thyroid Disfunction Patient has suicidal ideation: No Patient has homicidal ideation: No - Past Medical History Cardiac Medical History: Reports: Hx Atrial Fibrillation, Hx Congestive Heart Failure, Hx Coronary Artery Disease - S/P CABG 2000, Hx DVT - right leg, Hx Heart Attack, Hx Hypercholesterolemia, Hx Hypertension, Hx Peripheral Vascular Disease Pulmonary Medical History: Reports: Hx COPD, Hx Intubation, Hx Respiratory Failure, Hx Sleep Apnea Endocrine Medical History: Reports: Hx Diabetes Mellitus Type 2, Hx Hypothyroidism Renal/ Medical History: Reports: Hx Renal Insufficiency GI Medical History: Reports: Hx Cirrhosis Musculoskeltal Medical History: Reports Hx Arthritis 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 Past Surgical History: Reports: Hx Cardiac Surgery - pacemaker, Hx Cholecystectomy, Hx Coronary Artery Bypass Graft - 3 vessel CABG in 1999, Hx Open Heart Surgery - triple bypass, Hx Orthopedic Surgery - Left BKA and right transmetatarsal amputations, Hx Pacemaker, Hx Tonsillectomy - Immunizations Immunizations up to date: No Hx Diphtheria, Pertussis, Tetanus Vaccination: Yes <TATY DUKE - Last Filed: 10/02/17 20:51> Review of Systems - Review of Systems Constitutional: See HPI, Other - Elevated BGL EENT: No symptoms reported Cardiovascular: No symptoms reported Respiratory: No symptoms reported Gastrointestinal: No symptoms reported Genitourinary: See HPI, Other - pain, bladder spasm Male Genitourinary: No symptoms reported Musculoskeletal: No symptoms reported Skin: No symptoms reported Hematologic/Lymphatic: No symptoms reported Neurological/Psychological: No symptoms reported -: Yes All other systems reviewed and negative <TATY DUKE - Last Filed: 10/02/17 20:51> Physical Exam <TATY DUKE - Last Filed: 10/02/17 20:51> <RADHA LINCOLN - Last Filed: 10/02/17 22:05> - Vital signs Vitals: Temp Pulse Resp BP Pulse Ox 98.5 F 65 18 99/45 L 96 10/02/17 18:57 10/02/17 18:57 10/02/17 18:57 10/02/17 18:57 10/02/17 18:57 - Notes Notes: Physical Exam: General: Alert, appears at baseline. HEENT: Normocephalic. Atraumatic. PERRL. Right exotropia. Extraocular movements intact. Oropharynx clear. Hard of hearing at baseline. Neck: Supple. Non-tender. Respiratory: No respiratory distress. Clear and equal breath sounds bilaterally. Cardiovascular: Regular rate and rhythm. Abdominal: Obese. Non-tender. No distension. Normal Bowel Sounds. Male Genitourinary: Morse catheter in place. Scrotum is slightly swollen. Large amount of sediment in urine. Back: Non-tender. No deformity or step off. Extremities: Moves all four extremities. Upper extremities: Normal inspection. Normal ROM. Lower extremities: Left BKA. Right transmetatarsal amputation. Neurological: Normal cognition. AAOx4. Normal speech. Psychological: Normal affect. Normal Mood. Skin: Warm. Dry. Normal color. (TATY DUKE) Course - Laboratory Result Diagrams: 10/02/17 17:50 10/02/17 17:50 <TATY DUKE - Last Filed: 10/02/17 20:51> - Laboratory Result Diagrams: 10/02/17 17:50 10/02/17 17:50 <RADHA LINCOLN - Last Filed: 10/02/17 22:05> - Vital Signs Vital signs: Temp Pulse Resp BP Pulse Ox 98.5 F 65 18 99/45 L 96 10/02/17 18:57 10/02/17 18:57 10/02/17 18:57 10/02/17 18:57 10/02/17 18:57 - Laboratory Laboratory results interpreted by me: 10/02/17 10/02/17 10/02/17 16:59 17:50 17:50 WBC 11.2 H RBC 3.25 L Hgb 10.4 L Hct 31.6 L RDW 16.3 H Seg Neutrophils % 88.8 H Lymphocytes % 5.4 L Absolute Neutrophils 10.0 H Sodium 136.2 L Chloride 87 L Carbon Dioxide 42 H* BUN 47 H Creatinine 1.46 H Est GFR ( Amer) 59 L Est GFR (Non-Af Amer) 48 L Glucose 265 H POC Glucose 313 H Hemoglobin A1c % Direct Bilirubin 0.6 H Urine Protein Urine Blood Ur Leukocyte Esterase 10/02/17 10/02/17 17:50 17:50 WBC RBC Hgb Hct RDW Seg Neutrophils % Lymphocytes % Absolute Neutrophils Sodium Chloride Carbon Dioxide BUN Creatinine Est GFR ( Amer) Est GFR (Non-Af Amer) Glucose POC Glucose Hemoglobin A1c % 6.9 H Direct Bilirubin Urine Protein 30 H Urine Blood MODERATE H Ur Leukocyte Esterase LARGE H Discharge <TATY DUKE - Last Filed: 10/02/17 20:51> <RADHA LINCOLN - Last Filed: 10/02/17 22:05> - Discharge Clinical Impression: Dehydration Hyperglycemia due to type 2 diabetes mellitus Qualifiers: Diabetes mellitus terminal gauger supervisor insulin use: unspecified terminal gauger supervisor insulin use status Qualified Code(s): E11.65 - Type 2 diabetes mellitus with hyperglycemia Urinary tract infection Qualifiers: Urinary tract infection type: catheter-associated UTI Indwelling urinary catheter type: indwelling urethral catheter Encounter type: initial encounter Qualified Code(s): T83.511A - Infection and inflammatory reaction due to indwelling urethral catheter, initial encounter; N39.0 - Urinary tract infection , site not specified; N39.0 - Urinary tract infection, site not specified Condition: Stable Disposition: HOME-SNF (ED ONLY) Additional Instructions: Urinary Tract Infection: Your evaluation indicates that you have a urinary tract infection. This is due to germs growing in the bladder. This is a common problem. This infection usually responds quickly to antibiotics. Your antibiotic should be taken exactly as prescribed. Drink plenty of fluids -- three to four quarts a day. Certain urine infections require a culture. If the doctor obtained a culture, the results will be back in two days. You should call to see if a change in treatment is needed. A repeat urinalysis after you finish treatment is often recommended. The physician will let you know if further testing is required. Call the doctor if you develop fever, chills, flank pain, inability to urinate, or blood in the urine. //////////////////////////////////////////////////////////////////////////////// //////////////////////////////////////////////////////////////////////////////// ///////////////// Your evaluation today shows evidence of a urinary tract infection. This is probably the reason your blood sugars ran high today. The infection is also likely to be contributing to your bladder spasms. Be sure to drink plenty of fluids. The antibiotics as prescribed. Have your doctor check on the culture results in 2 days to be sure the antibiotic you receive will cover the infection. Take additional insulin as needed for elevated blood sugars. RETURN TO THE EMERGENCY ROOM IF ANY NEW OR WORSENING SYMPTOMS. Prescriptions: Levofloxacin [Levaquin 500 mg Tablet] 500 mg PO DAILY #4 tablet Scribe Attestation: 10/02/17 22:05 I personally performed the services described in the documentation, reviewed and edited the documentation which was dictated to the scribe in my presence, and it accurately records my words and actions. (RADHA LINCOLN) Scribe Documentation - Scribe Written by Julián:: Julián Dalton 10/02/2017 acting as scribe for :: [id number] <TATY DUKE - Last Filed: 10/02/17 20:51>
[2017-10-02 18:21] LABS: ABSOLUTE EOSINOPHILS # (AUTO) 0.1 10^3/uL (0.0-0.6); ABSOLUTE LYMPHOCYTES (AUTO) 0.6 10^3/uL (0.5-4.7); ABSOLUTE MONOCYTES (AUTO) 0.5 10^3/uL (0.1-1.4); BASOPHILS % (AUTO) 0.4 % (0-2); EOSINOPHILS % (AUTO) 0.9 % (0-6); HEMATOCRIT 31.6 % (37.9-51.0); HEMOGLOBIN 10.4 g/dL (13.5-17.0); HGB HCT DIFFERENCE -0.4; LYMPHOCYTES % (AUTO) 5.4 % (13-45); MONOCYTES % (AUTO) 4.5 % (3-13); RED BLOOD COUNT 3.25 10^6/uL (4.35-5.55); RED CELL DISTRIBUTION WIDTH 16.3 % (11.5-14.0); SEGMENTED NEUTROPHILS % (AUTO) 88.8 % (42-78); WHITE BLOOD COUNT 11.2 10^3/uL (4.0-10.5)
[2017-10-02 18:27] LABS: MEAN CORPUSCULAR VOLUME 97 fl (80-97)
[2017-10-02 18:33] LABS: ALANINE AMINOTRANSFERASE 28 U/L (21-72); ALBUMIN 3.6 g/dL (3.5-5.0); ALKALINE PHOSPHATASE 64 U/L (38-126); ASPARTATE AMINO TRANSFERASE 23 U/L (17-59); BILIRUBIN,DIRECT 0.6 mg/dL (0.0-0.4); BILIRUBIN,TOTAL 0.8 mg/dL (0.2-1.3); BLOOD UREA NITROGEN 47 mg/dL (7-20); CALCIUM 9.3 mg/dL (8.4-10.2); CHLORIDE 87 mmol/L (98-107); CREATININE RESULT 1.46 mg/dL (0.52-1.25); GLUCOSE 265 mg/dL (75-110); POTASSIUM 4.4 mmol/L (3.6-5.0); SODIUM 136.2 mmol/L (137-145); TOTAL PROTEIN 6.8 g/dL (6.3-8.2)
[2017-10-02 18:40] LABS: ANION GAP 7 (5-19)
[2017-10-02 18:42] LABS: CARBON DIOXIDE 42 mmol/L (22-30)
[2017-10-02 18:58] VITALS: BP 99/45
[2017-10-02 19:20] LABS: AMORPHOUS SEDIMENT,URINE TRACE /HPF; APPEARANCE,URINE CLOUDY; BILIRUBIN,URINE NEGATIVE (NEGATIVE); GLUCOSE, URINE NEGATIVE (NEGATIVE); KETONES,URINE NEGATIVE (NEGATIVE); LEUKOCYTE ESTERASE,URINE LARGE (NEGATIVE); NITRITE,URINE NEGATIVE (NEGATIVE); PROTEIN,URINE 30 mg/dL (NEGATIVE); URINE SPECIFIC GRAVITY 1.011; UROBILINOGEN,URINE NEGATIVE mg/dL (<2.0)
[2017-10-02] MEDS ORDERED: LEVOFLOXACIN 750 MG/D5W RTU 750 MG/150 ML RTUPB IV ONE (19:26)
[2017-10-02] MEDS ORDERED: NORMAL SALINE 1000 ML 1,000 ML IV ONE (20:29)
== END 2017-10-02 22:20 ==
LOC: ER 16:21
DX: E86.0 Dehydration (principal); E11.65 Type 2 diabetes mellitus with hyperglycemia; N39.0 Urinary tract infection, site not specified; N32.89 Other specified disorders of bladder; I48.91 Unspecified atrial fibrillation; I50.9 Heart failure, unspecified; I25.10 Atherosclerotic heart disease of native coronary artery without angina pectoris; E78.00 Pure hypercholesterolemia, unspecified; I11.0 Hypertensive heart disease with heart failure; J44.9 Chronic obstructive pulmonary disease, unspecified; E03.9 Hypothyroidism, unspecified; Z95.1 Presence of aortocoronary bypass graft; Z86.718 Personal history of other venous thrombosis and embolism; I25.2 Old myocardial infarction; Z90.49 Acquired absence of other specified parts of digestive tract; Z89.512 Acquired absence of left leg below knee
CPT/HCPCS: 99284; 96361; 96365; 36415; 87086; 82962; 85025; 87088; 80053; 81001; 87186; 83036; J7030; J1956; A9270; J3490

== ENCOUNTER 2017-10-04 11:28 | Emergency (ER) | payer MEDICARE, MEDICAID ==
--- NOTE | 2017-10-04 12:24 | ER Document Report ---
ED GI/ - General Chief Complaint: Abdominal Pain Stated Complaint: ABDOMINAL PAIN Time Seen by Provider: 10/04/17 11:42 Information source: Patient Notes: Patient is a 67-year-old male coming from [facility] secondary to some increased abdominal pain this morning. He states it is in the lower "bladder region". Patient denies any vomiting, diarrhea, fevers, or back pain. Patient denies any and all shortness of breath above baseline. Patient was seen here recently with a Morse change secondary to chronic indwelling Morse catheter with a possible urinary tract infection. He was started on Levaquin. It was found by the physician pathology assistant at the facility that possibly Levaquin interacted with the amiodarone. After this morning's dose the patient started to have some lower abdominal discomfort. The physician pathology assistant sent the patient here for further evaluation. I called and spoke to the nurse taking care of the patient at the facility. She reiterated the above story. She also denies any complaints of shortness of breath or pain to the chest. Patient has a complicated past medical history as recorded but is normally oriented to person place and time, which he is at this moment. TRAVEL OUTSIDE OF THE [place] IN LAST 30 DAYS: No - HPI Patient complains to provider of: Abdominal pain Onset: This morning Timing/Duration: Gradual Quality of pain: Achy Severity at maximum: Mild Severity in ED: Mild Pain Level: 2 Location: Suprapubic Sexual history: Inactive Associated symptoms: Other - See above Exacerbated by: Denies Relieved by: Denies Similar symptoms previously: Yes Recently seen / treated by doctor: Yes - Related Data Allergies/Adverse Reactions: iodine [Iodine] Allergy (Verified 11/06/16 01:26) hydrocodone bitartrate [From Vicodin] Adverse Reaction (Mild, Verified 11/06/16 01:26) VOMITING Past Medical History - General Information source: Patient - Social History Smoking Status: Unknown if Ever Smoked Cigarette use (# per day): No Chew tobacco use (# tins/day): No Smoking Education Provided: No Frequency of alcohol use: None Drug Abuse: None Family History: Reviewed & Not Pertinent, CAD, DM, Hyperlipidemia, Hypertension , Thyroid Disfunction - Past Medical History Cardiac Medical History: Reports: Hx Atrial Fibrillation, Hx Congestive Heart Failure, Hx Coronary Artery Disease - S/P CABG 2000, Hx DVT - right leg, Hx Heart Attack, Hx Hypercholesterolemia, Hx Hypertension, Hx Peripheral Vascular Disease Pulmonary Medical History: Reports: Hx COPD, Hx Intubation, Hx Respiratory Failure, Hx Sleep Apnea Denies: Hx Asthma, Hx Bronchitis, Hx Pneumonia Neurological Medical History: Denies: Hx Cerebrovascular Accident, Hx Seizures Endocrine Medical History: Reports: Hx Diabetes Mellitus Type 2, Hx Hypothyroidism Renal/ Medical History: Reports: Hx Renal Insufficiency. 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 Past Surgical History: Reports: Hx Cardiac Surgery - pacemaker, Hx Cholecystectomy, Hx Coronary Artery Bypass Graft - 3 vessel CABG in 1999, Hx Open Heart Surgery - triple bypass, Hx Orthopedic Surgery - Left BKA and right transmetatarsal amputations, Hx Pacemaker, Hx Tonsillectomy - Immunizations Immunizations up to date: No Hx Diphtheria, Pertussis, Tetanus Vaccination: Yes Review of Systems - Review of Systems Constitutional: denies: Fever EENT: denies: Eye discharge, Nose discharge Cardiovascular: denies: Chest pain, Palpitations Respiratory: denies: Hurts to breathe, Short of breath Gastrointestinal: denies: Vomiting Genitourinary: denies: Dysuria Musculoskeletal: denies: Leg swelling Skin: Other - no hives. denies: Rash Neurological/Psychological: Other - no slurred speech -: Yes All other systems reviewed and negative Physical Exam - Vital signs Vitals: Temp Pulse Resp BP Pulse Ox 97.5 F 68 22 H 128/68 H 99 10/04/17 12:25 10/04/17 12:25 10/04/17 12:25 10/04/17 12:25 10/04/17 12:25 Notes: Reviewed vital signs and nursing note as charted by RN. CONSTITUTIONAL: Alert and oriented and responds appropriately to questions. Well -appearing; well-nourished HEAD: Normocephalic; atraumatic EYES: Sclerae non-icteric ENT: Normal nose; no rhinorrhea; moist mucous membranes; pharynx without lesions noted NECK: Supple without meningismus; non-tender; no cervical lymphadenopathy, no masses CARD: Regular rate and rhythm; no murmurs, no clicks, no rubs, no gallops; symmetric distal pulses RESP: Normal chest excursion without splinting or tachypnea; breath sounds clear and equal bilaterally; scattered rhonchi without wheezing or rales ABD/GI: Normal bowel sounds; elevated BMI; soft, mildly tender to palpation to the suprapubic region. No rebound or guarding. No palpable masses or bruits present : Patient has a Morse catheter in place. There are no inguinal masses or obvious penile discharge. BACK: The back appears normal and is non-tender to palpation, there is no CVA tenderness EXT: Normal ROM in all joints of the left BKA; non-tender to palpation; no cyanosis, no effusions, no edema SKIN: No acute lesions noted NEURO: Moves all extremities equally; Motor and sensory function intact PSYCH: The patient's mood and manner are appropriate. Grooming and personal hygiene are appropriate. Course - Re-evaluation Re-evalutation: 10/04/17 12:24 Given the above history and physical examination we will order a repeat urinalysis, basic labs, liver panel, lipase, x-ray of the chest, CT scan of the abdomen and pelvis with a lactic acid level. I would like to evaluate for possible other intra-abdominal process causing an infection and pain. We will start the patient on a dose of Rocephin here given his recent diagnosis of urinary tract infection. 10/04/17 12:28 Spoke to him to the nurse practitioner who states the only reason she sent the patient here was because he was having a little "shakes" after the Levaquin and amiodarone combination. She was concerned about possible QT interval prolongation and states she could not do an EKG at the facility. She also denies any complaints of chest pain. EKG shows a heart of 65, normal sinus rhythm, normal axis, right bundle branch block with left anterior fascicular block with some LVH. No obvious ST elevation or depression. Inverted T-wave in leads I and aVL. Old EKG from August 20, 2016, no appreciable change noted. 10/04/17 14:16 CT scan as recorded. Labs as recorded. Patient denies any pain at this time. Urine culture has been sent. Rocephin has been provided. We will perform a repeat troponin at the 3 hour leobardo. Patient still denies any pain. 10/04/17 17:15 Repeat troponin as recorded. Patient still denies any pain at this time. Patient will be discharged home back to the facility, urine culture pending, with 1 g of Rocephin given here in the emergency department, with the physician pathology assistant William following up on the patient. - Vital Signs Vital signs: Temp Pulse Resp BP Pulse Ox 97.5 F 68 22 H 128/68 H 99 10/04/17 12:25 10/04/17 12:25 10/04/17 12:25 10/04/17 12:25 10/04/17 12:25 - Laboratory Result Diagrams: 10/04/17 12:00 10/04/17 12:00 Laboratory results interpreted by me: 10/04/17 10/04/17 10/04/17 11:53 12:00 12:00 RBC 3.26 L Hgb 10.5 L Hct 31.3 L RDW 16.4 H Seg Neutrophils % 86.8 H Lymphocytes % 6.2 L Sodium 134.9 L Potassium 5.1 H Chloride 89 L Carbon Dioxide 37 H BUN 43 H Creatinine 1.38 H Est GFR (Non-Af Amer) 52 L Glucose 259 H POC Glucose 280 H Direct Bilirubin 0.6 H Total Protein 6.0 L Urine Glucose (UA) Urine Blood Ur Leukocyte Esterase 10/04/17 12:00 RBC Hgb Hct RDW Seg Neutrophils % Lymphocytes % Sodium Potassium Chloride Carbon Dioxide BUN Creatinine Est GFR (Non-Af Amer) Glucose POC Glucose Direct Bilirubin Total Protein Urine Glucose (UA) 50 H Urine Blood SMALL H Ur Leukocyte Esterase SMALL H Discharge - Discharge Clinical Impression: Abdominal discomfort Urinary tract infection Qualifiers: Urinary tract infection type: site unspecified Hematuria presence: without hematuria Qualified Code(s): N39.0 - Urinary tract infection, site not specified Condition: Good Disposition: HOME, SELF-CARE Additional Instructions: Please have the patient return immediately with any return of pain, any chest pain, shortness of breath, fevers, or any other acute problems. We gave 1 g of Rocephin Antibiotics intravenously prior to being discharged this evening. William, the provider at your facility, stated she was going to start the patient on a new antibiotic and wanted to discontinue levofloxacin. Please make sure that the patient starts on a new antibiotic tomorrow with reassessment. Referrals: ALEXANDRIA RANGEL MD [Primary Care Provider] - Follow up as needed
[2017-10-04] MEDS ORDERED: CEFTRIAXONE 1 GM/D5W RTU 1 GM/50 ML RTUPB IV ONE (12:25)
[2017-10-04 12:31] LABS: ABSOLUTE BASOPHILS # (AUTO) 0.1 10^3/uL (0.0-0.2); ABSOLUTE EOSINOPHILS # (AUTO) 0.2 10^3/uL (0.0-0.6); ABSOLUTE LYMPHOCYTES (AUTO) 0.5 10^3/uL (0.5-4.7); ABSOLUTE MONOCYTES (AUTO) 0.4 10^3/uL (0.1-1.4); ABSOLUTE NEUT (AUTO) 7.4 10^3/uL (1.7-8.2); BASOPHILS % (AUTO) 0.7 % (0-2); EOSINOPHILS % (AUTO) 1.8 % (0-6); HEMATOCRIT 31.3 % (37.9-51.0); HEMOGLOBIN 10.5 g/dL (13.5-17.0); HGB HCT DIFFERENCE 0.2; LYMPHOCYTES % (AUTO) 6.2 % (13-45); MEAN CORPUSCULAR HEMOGLOBIN 32.2 pg (27.0-33.4); MEAN CORPUSCULAR HGB CONC 33.5 g/dL (32.0-36.0); MEAN CORPUSCULAR VOLUME 96 fl (80-97); MONOCYTES % (AUTO) 4.5 % (3-13); RED BLOOD COUNT 3.26 10^6/uL (4.35-5.55); RED CELL DISTRIBUTION WIDTH 16.4 % (11.5-14.0); SEGMENTED NEUTROPHILS % (AUTO) 86.8 % (42-78); WHITE BLOOD COUNT 8.6 10^3/uL (4.0-10.5)
[2017-10-04 12:36] LABS: PROTHROMBIN TIME 13.3 SEC (11.4-15.4)
[2017-10-04 12:52] LABS: ALANINE AMINOTRANSFERASE 30 U/L (21-72); ALBUMIN 3.5 g/dL (3.5-5.0); ALKALINE PHOSPHATASE 67 U/L (38-126); ANION GAP 9 (5-19); ASPARTATE AMINO TRANSFERASE 28 U/L (17-59); BILIRUBIN,DIRECT 0.6 mg/dL (0.0-0.4); BILIRUBIN,TOTAL 0.9 mg/dL (0.2-1.3); BLOOD UREA NITROGEN 43 mg/dL (7-20); CALCIUM 9.1 mg/dL (8.4-10.2); CARBON DIOXIDE 37 mmol/L (22-30); CHLORIDE 89 mmol/L (98-107); CREATININE RESULT 1.38 mg/dL (0.52-1.25); GLUCOSE 259 mg/dL (75-110); POTASSIUM 5.1 mmol/L (3.6-5.0); SODIUM 134.9 mmol/L (137-145)
[2017-10-04 12:55] LABS: APPEARANCE,URINE CLEAR; BILIRUBIN,URINE NEGATIVE (NEGATIVE); GLUCOSE, URINE 50 mg/dL (NEGATIVE); KETONES,URINE NEGATIVE (NEGATIVE); LEUKOCYTE ESTERASE,URINE SMALL (NEGATIVE); NITRITE,URINE NEGATIVE (NEGATIVE); PROTEIN,URINE NEGATIVE (NEGATIVE); UROBILINOGEN,URINE NEGATIVE mg/dL (<2.0)
--- NOTE | 2017-10-04 13:19 | RADIOLOGY REPORT (SQ) ---
EXAM DESCRIPTION: CHEST PA/LAT COMPLETED DATE/TIME: 10/04/2017 12:57 pm REASON FOR STUDY: 5, abdominal pain; cough COMPARISON: 08/20/2016, 04/26/2017 EXAM PARAMETERS: NUMBER OF VIEWS: two views TECHNIQUE: Digital Frontal and Lateral radiographic views of the chest acquired. RADIATION DOSE: NA LIMITATIONS: none FINDINGS: LUNGS AND PLEURA: Bilateral pleural calcifications are present. No acute infiltrates. No pleural effusion or pneumothorax. MEDIASTINUM AND HILAR STRUCTURES: No masses or contour abnormalities. HEART AND VASCULAR STRUCTURES: Stable moderate cardiomegaly. Old sternotomy and CABG. BONES: Osteoporotic. No gross acute changes HARDWARE: Right-sided dual lead pacemaker OTHER: No other significant finding. IMPRESSION: Stable pleural calcifications and cardiomegaly. Old CABG. Pacemaker. No acute changes TECHNICAL DOCUMENTATION: JOB ID: [id number] [employer]- All Rights Reserved
--- NOTE | 2017-10-04 13:24 | EKG REPORT ---
SEVERITY:- ABNORMAL ECG - SINUS RHYTHM ATRIAL PREMATURE COMPLEX RBBB AND LAFB LEFT VENTRICULAR HYPERTROPHY : Confirmed by: Enoc Delgado MD 04-Oct-2017 13:23:43
--- NOTE | 2017-10-04 14:09 | RADIOLOGY REPORT (SQ) ---
EXAM DESCRIPTION: CT ABD/PELVIS NO ORAL OR IV COMPLETED DATE/TIME: 10/04/2017 1:52 pm REASON FOR STUDY: 6, recent uti? Worsening pain COMPARISON: None. TECHNIQUE: CT scan of the abdomen and pelvis performed without intravenous or oral contrast. Images reviewed with lung, soft tissue, and bone windows. Reconstructed coronal and sagittal MPR images revi ewed. All images stored on PACS. All CT scanners at this facility use dose modulation, iterative reconstruction, and/or weight based d osing when appropriate to reduce radiation dose to as low as reasonably achievable (ALARA). [facility]: Dose Right [facility]: CareDose [facility]: Dose Right [facility]: Teradose 4D [facility]: [employer] RADIATION DOSE: mGy. LIMITATIONS: None. FINDINGS: LOWER CHEST: Calcified pleural plaques are present bilaterally. NON-CONTRASTED LIVER, SPLEEN, ADRENALS: The liver is unremarkable. Splenomegaly is present. There i s no adrenal mass. PANCREAS: No masses. No peripancreatic inflammatory changes. GALLBLADDER: Surgically absent. RIGHT KIDNEY AND URETER: No solid masses. An exophytic cortical cyst is present. No significant ca lcifications. No hydronephrosis or hydroureter. LEFT KIDNEY AND URETER: No suspicious masses. Assessment limited by lack of IV contrast. No signifi cant calcifications. No hydronephrosis or hydroureter. AORTA AND RETROPERITONEUM: No aneurysm. Atherosclerosis. Atherosclerosis is present at the origin o f the celiac, SMA, and renal arteries. Considerable atherosclerosis is present in SMA. BOWEL AND PERITONEAL CAVITY: There is large amount of air in the stomach. There is mild diverticulos is in the descending colon and sigmoid colon. No acute inflammation. APPENDIX: Not identified. PELVIS, BLADDER, AND ABDOMINAL WALL: A Morse catheter is in the urinary bladder. There is a small um bilical hernia containing only fat. BONES: No significant findings. OTHER: No other significant finding. IMPRESSION: 1. Calcified pleural plaques. 2. Splenomegaly. 3. The stomach is distended with air. 4. Diverticulosis coli. 5. Small umbilical containing fat. COMMENT: Quality ID # [id number]: Final reports with documentation of one or more dose reduction techniques (e.g., Automated exposure control, adjustment of the mA and/or kV according to patient size, use of iterative reconstruction technique) TECHNICAL DOCUMENTATION: JOB ID: [id number]- All Rights Reserved
[2017-10-04 17:51] VITALS: BP 132/68
== END 2017-10-04 19:28 | disposition home or self-care (01) ==
LOC: ER 11:28
DX: N39.0 Urinary tract infection, site not specified (principal); J44.9 Chronic obstructive pulmonary disease, unspecified; I45.2 Bifascicular block; I48.91 Unspecified atrial fibrillation; I25.10 Atherosclerotic heart disease of native coronary artery without angina pectoris; I10 Essential (primary) hypertension; I25.2 Old myocardial infarction; E11.9 Type 2 diabetes mellitus without complications; Z95.1 Presence of aortocoronary bypass graft; Z95.0 Presence of cardiac pacemaker
CPT/HCPCS: 93005; 99285; 96365; 36415; 82962; 83690; 85025; 85610; 80053; 81001; 84484; 71020; 74176; 93010; J0696

== ENCOUNTER 2017-11-10 22:09 | Inpatient (IN) | payer MEDICARE, MEDICAID ==
--- NOTE | 2017-11-10 22:57 | ER Document Report ---
ED General - General Mode of Arrival: Ambulatory Information source: Patient TRAVEL OUTSIDE OF THE [place] IN LAST 30 DAYS: No <TATY DUKE - Last Filed: 11/11/17 03:48> <RAKAN MARADIAGA - Last Filed: 11/11/17 03:53> - General Chief Complaint: Cough Stated Complaint: COUGH Time Seen by Provider: 11/10/17 22:43 Notes: Patient is a 67 year old male that presents to the emergency department today with complaints of "tremors, fevers, and blood in urine" according to the daughter at bedside. Patient states she was called by Amalia Kim and told the above mentioned symptoms. Daughter states these tremors are new. Patient has a history of UTIs and has a chronic indwelling danielle catheter. Daughter states he also is not talking as much as he normally does. Daughter also mentions a cough with increased mucus production recently. Patient denies any pain. (TATY DUKE) - Related Data Allergies/Adverse Reactions: iodine [Iodine] Allergy (Verified 11/06/16 01:26) hydrocodone bitartrate [From Vicodin] Adverse Reaction (Mild, Verified 11/06/16 01:26) VOMITING Past Medical History - General Information source: Patient - Social History Smoking Status: Former Smoker Cigarette use (# per day): No Frequency of alcohol use: None Drug Abuse: None Lives with: Family Family History: Reviewed & Not Pertinent, CAD, DM, Hyperlipidemia, Hypertension , Thyroid Disfunction - Past Medical History Cardiac Medical History: Reports: Hx Atrial Fibrillation, Hx Congestive Heart Failure, Hx Coronary Artery Disease - S/P CABG 2000, Hx DVT - right leg, Hx Heart Attack, Hx Hypercholesterolemia, Hx Hypertension, Hx Peripheral Vascular Disease Pulmonary Medical History: Reports: Hx COPD, Hx Intubation, Hx Respiratory Failure, Hx Sleep Apnea Endocrine Medical History: Reports: Hx Diabetes Mellitus Type 2, Hx Hypothyroidism Renal/ Medical History: Reports: Hx Renal Insufficiency GI Medical History: Reports: Hx Cirrhosis Musculoskeltal Medical History: Reports Hx Arthritis 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 Past Surgical History: Reports: Hx Cardiac Surgery - pacemaker, Hx Cholecystectomy, Hx Coronary Artery Bypass Graft - 3 vessel CABG in 1999, Hx Open Heart Surgery - triple bypass, Hx Orthopedic Surgery - Left BKA and right transmetatarsal amputations, Hx Pacemaker, Hx Tonsillectomy - Immunizations Immunizations up to date: No Hx Diphtheria, Pertussis, Tetanus Vaccination: Yes <TATY DUKE - Last Filed: 11/11/17 03:48> Review of Systems - Review of Systems Constitutional: See HPI, Fever EENT: No symptoms reported Cardiovascular: No symptoms reported Respiratory: See HPI, Cough Gastrointestinal: No symptoms reported Genitourinary: See HPI, Hematuria Male Genitourinary: No symptoms reported Musculoskeletal: No symptoms reported Skin: No symptoms reported Hematologic/Lymphatic: No symptoms reported Neurological/Psychological: See HPI, Tremor -: Yes All other systems reviewed and negative <TATY DUKE - Last Filed: 11/11/17 03:48> <RAKAN MARADIAGA - Last Filed: 11/11/17 03:53> - Review of Systems Notes: being given by daughter at bedside (TATY DUKE) Physical Exam <TATY DUKE - Last Filed: 11/11/17 03:48> <RAKAN MARADIAGA - Last Filed: 11/11/17 03:53> - Vital signs Vitals: Pulse Ox 100 11/10/17 23:33 - Notes Notes: PHYSICAL EXAM GENERAL: Awake, interacts when prompted. No acute distress. HEAD: Normocephalic, atraumatic. EYES: Pupils equal, round, and reactive to light. Extraocular movements intact. ENT: Oral mucosa moist, tongue midline. NECK: Full range of motion. Supple. Trachea midline. LUNGS: Trace expiratory wheeze, rales, wet cough, no rhonchi. No respiratory distress. HEART: Faint heart sounds, regular rate and rhythm. No murmurs but difficult to appreciate secondary to faint heart sounds. No gallops or rubs. ABDOMEN: Soft, non-tender. Non-distended. Bowel sounds present in all 4 quadrants. MALE GENITOURINARY: Danielle catheter in place. Blood and pus at urethral meatus around danielle catheter. EXTREMITIES: Left BKA, stump well-healed with no sign of infection. Right foot has all toes amputated to midfoot. Barely palpable right dorsalis pedis pulse. No edema. No cyanosis. NEUROLOGICAL: Alert and oriented x3. Normal speech. Involuntary muscle twitching which increases when using bilateral upper extremities. Difficulty lifting left upper extremity. Able to squeeze hands on command bilaterally. PSYCH: Normal affect, normal mood. SKIN: Diaphoretic, hot to the touch, normal turgor. No rashes or lesions noted. Chronic skin changes to RLE consistent with poor blood flow. (TATY DUKE) Course - Laboratory Result Diagrams: 11/10/17 23:41 11/10/17 23:41 <TATY DUKE - Last Filed: 11/11/17 03:48> - Laboratory Result Diagrams: 11/10/17 23:41 11/10/17 23:41 <RAKAN MARADIAGA - Last Filed: 11/11/17 03:53> - Re-evaluation Re-evalutation: 11/11/17 01:31 Patient is wheezing, consistent with COPD exacerbation but also has rales, will treat with Solu-Medrol, albuterol and Lasix. Patient is on his chronic 3 L of home O2 and is not hypoxic, no indication for BiPAP at this time for respiratory assistance. Multiple laboratory studies were ordered to rule out PA , CHF and sepsis. CBC shows slight leukocytosis 11.2 with chronic anemia and hemoglobin of 10.5, INR is actually low at 1.02, the reviewing his chart he does not seem to be given warfarin at this time for his A. fib now that he is ventricularly paced. Chemistries show elevated potassium of 5.7 although there is noQRS widening compared to prior EKG from 2 months ago, there is also no peaked T waves. There is acute on chronic renal failure with a BUN of 59 and a creatinine 1.91, lactic acid is normal, troponin is indeterminate at 0.070, proBNP elevated 8130 consistent with diagnosis of congestive heart failure. Chest x-ray shows pattern consistent with CHF though it could also represent multifocal pneumonia. Given the history of fever, the leukocytosis and the cough I think it is prudent to treat for both a therefore he will be treated with Lasix as well as Levaquin and cefepime. As patient is also hypercapnic on his ABG which shows a CO2 of 86.9 patient will be placed on BiPAP, this may help to clear his somewhat altered mental status. Patient's ammonia is not elevated. No indication for CT scan at this time as he is simply slower to respond than usual but there are no focal neurologic deficits. No suspicion for intracranial hemorrhage. No evidence of stroke. I did discuss the patient with Dr. Rivera who agreed to admit the patient to his service to the [facility]. Also discussed the patient with his daughter after getting his permission and she is aware that he will be admitted. (RAKAN MARADIAGA) - Vital Signs Vital signs: Temp Pulse Resp BP Pulse Ox 79 21 H 114/92 H 96 11/11/17 02:46 11/11/17 02:46 11/11/17 02:02 11/11/17 02:46 - Laboratory Laboratory results interpreted by me: 11/10/17 11/10/17 11/10/17 23:41 23:41 23:41 WBC 11.2 H RBC 3.48 L Hgb 10.5 L Hct 33.1 L MCHC 31.8 L RDW 16.6 H Seg Neutrophils % 86.3 H Lymphocytes % 6.5 L Absolute Neutrophils 9.7 H VBG pCO2 VBG HCO3 Sodium 135.8 L Potassium 5.7 H Chloride 87 L Carbon Dioxide 42 H* BUN 59 H Creatinine 1.91 H Est GFR ( Amer) 43 L Est GFR (Non-Af Amer) 36 L Glucose 187 H Creatine Kinase 32 L NT-Pro-B Natriuret Pep 8130 H 11/10/17 23:41 WBC RBC Hgb Hct MCHC RDW Seg Neutrophils % Lymphocytes % Absolute Neutrophils VBG pCO2 86.9 H* VBG HCO3 43.6 H Sodium Potassium Chloride Carbon Dioxide BUN Creatinine Est GFR ( Amer) Est GFR (Non-Af Amer) Glucose Creatine Kinase NT-Pro-B Natriuret Pep - EKG Interpretation by Me Additional EKG results interpreted by me: 11/11/17 01:32 EKG shows ventricularly paced rhythm at a rate of 85, widened QRS consistent with a single-chamber ventricular pacemaker, no peak T waves, minimal ST segment elevations V1 V2 and V3 and V4 that are consistent with incomplete left bundle branch block, do not meet sgarbossa criteria. Per my interpretation. ( RAKAN MARADIAGA) Critical Care Note - Critical Care Note Total time excluding time spent on procedures (mins): 40 <RAKAN MARADIAGA - Last Filed: 11/11/17 03:53> Discharge <TATY DUKE - Last Filed: 11/11/17 03:48> - Discharge Admitting Provider: Ariane rivera Unit Admitted: [facility] <RAKAN MARADIAGA - Last Filed: 11/11/17 03:53> - Discharge Clinical Impression: Hyperkalemia, Penile bleeding Acute on chronic renal failure Qualifiers: Acute renal failure type: unspecified Chronic kidney disease stage: stage 3 ( moderate) Qualified Code(s): N17.9 - Acute kidney failure, unspecified Acute CHF Qualifiers: Congestive heart failure type: unspecified Qualified Code(s): I50.9 - Heart failure, unspecified Diabetes mellitus type II, uncontrolled Qualifiers: Diabetes mellitus complication status: with circulatory complication Diabetes mellitus complication detail: with peripheral angiopathy without gangrene Diabetes mellitus rat exterminator insulin use: with rat exterminator use Qualified Code(s): E11.51 - Type 2 diabetes mellitus with diabetic peripheral angiopathy without gangrene Acute on chronic respiratory failure Qualifiers: Respiratory failure complication: hypercapnia Qualified Code(s): J96.22 - Acute and chronic respiratory failure with hypercapnia Anemia Qualifiers: Anemia type: due to chronic kidney disease Chronic kidney disease stage: stage 3 (moderate) Qualified Code(s): N18.3 - Chronic kidney disease, stage 3 ( moderate) Condition: Fair Disposition: ADMITTED INPATIENT Scribe Attestation: 11/11/17 03:53 I personally performed the services described in the documentation, reviewed and edited the documentation which was dictated to the scribe in my presence, and it accurately records my words and actions. (RAKAN MARADIAGA) Scribe Documentation - Scribe Written by Scribe:: Julián Dalton, 11/11/2017 0123 acting as scribe for :: Pablo <TATY DUKE - Last Filed: 11/11/17 03:48>
[2017-11-10] MEDS ORDERED: ALBUTEROL SULFATE 0.083% NEB 2.5 MG/3 ML AMPUL NEB ONE (22:58)
[2017-11-10] MEDS ORDERED: METHYLPREDNISOLONE INJ 125 MG/2 ML SDV IV ONE (22:58)
[2017-11-10 23:57] LABS: VENOUS BLOOD BASE EXCESS 14.1 mmol/L; VENOUS BLOOD HCO3 43.6 mmol/L (20-32); VENOUS BLOOD PH 7.32 (7.30-7.42)
[2017-11-10 23:58] LABS: ABSOLUTE BASOPHILS # (AUTO) 0.1 10^3/uL (0.0-0.2); ABSOLUTE EOSINOPHILS # (AUTO) 0.2 10^3/uL (0.0-0.6); ABSOLUTE LYMPHOCYTES (AUTO) 0.7 10^3/uL (0.5-4.7); ABSOLUTE MONOCYTES (AUTO) 0.6 10^3/uL (0.1-1.4); ABSOLUTE NEUT (AUTO) 9.7 10^3/uL (1.7-8.2); BASOPHILS % (AUTO) 0.7 % (0-2); EOSINOPHILS % (AUTO) 1.4 % (0-6); HEMATOCRIT 33.1 % (37.9-51.0); HEMOGLOBIN 10.5 g/dL (13.5-17.0); LYMPHOCYTES % (AUTO) 6.5 % (13-45); MEAN CORPUSCULAR HEMOGLOBIN 30.2 pg (27.0-33.4); MEAN CORPUSCULAR HGB CONC 31.8 g/dL (32.0-36.0); MEAN CORPUSCULAR VOLUME 95 fl (80-97); MONOCYTES % (AUTO) 5.1 % (3-13); PLATELET COUNT 198 10^3/uL (150-450); RED BLOOD COUNT 3.48 10^6/uL (4.35-5.55); RED CELL DISTRIBUTION WIDTH 16.6 % (11.5-14.0); SEGMENTED NEUTROPHILS % (AUTO) 86.3 % (42-78); TOTAL CELLS COUNTED % (AUTO) 100 %; WHITE BLOOD COUNT 11.2 10^3/uL (4.0-10.5)
[2017-11-11 00:13] LABS: VENOUS BLOOD PCO2 86.9 mmHg (35-63)
[2017-11-11 00:19] LABS: INTERNATIONAL RATION (INR) 1.02; PARTIAL THROMBOPLASTIN TIME 33.2 SEC (23.5-35.8); PROTHROMBIN TIME 14.1 SEC (11.4-15.4)
[2017-11-11 00:22] LABS: ALANINE AMINOTRANSFERASE 26 U/L (21-72); ALBUMIN 3.7 g/dL (3.5-5.0); ALKALINE PHOSPHATASE 53 U/L (38-126); ASPARTATE AMINO TRANSFERASE 20 U/L (17-59); BILIRUBIN,DIRECT 0.4 mg/dL (0.0-0.4); BILIRUBIN,TOTAL 0.5 mg/dL (0.2-1.3); BLOOD UREA NITROGEN 59 mg/dL (7-20); CALCIUM 9.4 mg/dL (8.4-10.2); CHLORIDE 87 mmol/L (98-107); CREATINE KINASE 32 U/L (55-170); GLUCOSE 187 mg/dL (75-110); POTASSIUM 5.7 mmol/L (3.6-5.0); SODIUM 135.8 mmol/L (137-145); TOTAL PROTEIN 6.5 g/dL (6.3-8.2)
[2017-11-11 00:33] LABS: CREATINE KINASE MB 0.71 ng/mL (<4.55)
[2017-11-11 00:42] LABS: ANION GAP 7 (5-19); CARBON DIOXIDE 42 mmol/L (22-30); TROPONIN I 0.07 ng/mL
--- NOTE | 2017-11-11 00:59 | RADIOLOGY REPORT (SQ) ---
EXAM DESCRIPTION: CHEST SINGLE VIEW CLINICAL HISTORY: 67 years, Male, cough, fever, rales, wheezes COMPARISON: 8.30.17 LIMITATIONS: None. FINDINGS: Mild to moderate mixed airspace and interstitial opacity with central predominance, moderate lung volume, moderate enlargement of the cardiac silhouette median sternotomy, atherosclerosis, right cardiac stimulation device and leads. IMPRESSION: [id number] CHF pattern; differential diagnosis includes multifocal pneumonia. 2011 [employer]- All Rights Reserved
[2017-11-11] MEDS ORDERED: LEVOFLOXACIN 750 MG/D5W RTU 750 MG/150 ML RTUPB IV ONE (01:02)
[2017-11-11] MEDS ORDERED: FUROSEMIDE INJ/PF 40 MG/4 ML SDV IV ONE ×2 (01:06)
[2017-11-11] MEDS ORDERED: CEFEPIME 1 GM/D5W RTU 1 GM/50 ML RTUPB IV ONE (01:06)
[2017-11-11] MEDS ORDERED: SODIUM POLYSTYRENE SULFONATE 15 GM/60 ML PO ONE ×3 (01:06→15:45)
[2017-11-11] MEDS ORDERED: DEXTROSE 40% GEL 15 GM TUBE PO PRN ×2 (01:31)
[2017-11-11] MEDS ORDERED: ACETAMINOPHEN 325 MG TABLET PO PRN (01:31)
[2017-11-11] MEDS ORDERED: IPRATROPIUM/ALBUTEROL 0.5-2.5 MG/3 ML AMPUL NEB PRN (01:31)
[2017-11-11] MEDS ORDERED: DEXTROSE 50%-WATER 25 GM/50 ML DISP.SYRIN IV PRN ×2 (01:31)
[2017-11-11] MEDS ORDERED: GUAIFENESIN SYRP 200 MG/10 ML UDC PO PRN (01:31)
[2017-11-11] MEDS ORDERED: GLUCAGON,HUMAN RECOMB 1 MG INJ IM PRN (01:31)
[2017-11-11] MEDS ORDERED: CHLORPHENIRAMINE MALEATE 4 MG TABLET PO ONE (01:35)
[2017-11-11] MEDS ORDERED: FLUTICASONE NASAL SPRAY 50 MCG/SPRY 120 SPRAY/16 GM NASL ONE (01:45)
[2017-11-11 02:02] LABS: BILIRUBIN,URINE NEGATIVE (NEGATIVE); COLOR,URINE YELLOW; GLUCOSE, URINE NEGATIVE (NEGATIVE); KETONES,URINE NEGATIVE (NEGATIVE); LEUKOCYTE ESTERASE,URINE LARGE (NEGATIVE); NITRITE,URINE NEGATIVE (NEGATIVE); PROTEIN,URINE NEGATIVE (NEGATIVE); URINE SPECIFIC GRAVITY 1.015; UROBILINOGEN,URINE NEGATIVE mg/dL (<2.0)
[2017-11-11 02:03] LABS: APPEARANCE,URINE SLIGHTLY-CLOUDY
[2017-11-11 02:36] LABS: CREATINE KINASE MB 0.59 ng/mL (<4.55); TROPONIN I 0.074 ng/mL
[2017-11-11] MEDS: IPRATROPIUM/ALBUTEROL 0.5-2.5 MG/3 ML AMPUL NEB SCH ×4 (02:46→20:23)
[2017-11-11] MEDS ORDERED: OXYCODONE HCL IR 5 MG TABLET PO PRN (03:17)
[2017-11-11] MEDS: HEPARIN SOD (PORCINE) 5,000 UNIT/ML 1 ML SYRINGE SUBCUT SCH ×3 (05:44→21:25)
[2017-11-11] MEDS: LEVOTHYROXINE SODIUM 0.025 MG TABLET PO SCH (06:11)
[2017-11-11] MEDS: LEVOTHYROXINE SODIUM 0.1 MG TABLET PO SCH (06:11)
[2017-11-11 07:10] LABS: HEMATOCRIT 32.6 % (37.9-51.0); HEMOGLOBIN 10.6 g/dL (13.5-17.0); MEAN CORPUSCULAR HEMOGLOBIN 30.9 pg (27.0-33.4); MEAN CORPUSCULAR HGB CONC 32.5 g/dL (32.0-36.0); MEAN CORPUSCULAR VOLUME 95 fl (80-97); PLATELET COUNT 188 10^3/uL (150-450); RED BLOOD COUNT 3.43 10^6/uL (4.35-5.55); RED CELL DISTRIBUTION WIDTH 16.6 % (11.5-14.0)
[2017-11-11 07:19] LABS: ANION GAP 11 (5-19); BLOOD UREA NITROGEN 62 mg/dL (7-20); CALCIUM 9.4 mg/dL (8.4-10.2); CARBON DIOXIDE 38 mmol/L (22-30); CHLORIDE 88 mmol/L (98-107); GLUCOSE 305 mg/dL (75-110); SODIUM 136.6 mmol/L (137-145)
--- NOTE | 2017-11-11 07:20 | PDOC H&P ---
History of Present Illness Admission Date/PCP: 11/11/17 01:40 ANNY RANGEL MD Patient complains of: Shortness of breath and cough History of Present Illness: MAYRA JAY is a 67 year old long[facility]term [facility] with a past medical history of atrial fibrillation, coronary artery disease, status post coronary artery bypass graft, poorly controlled diabetes, stage III chronic kidney disease, congestive heart failure with ejection fraction 35%, biventricular pacemaker/AICD, hypothyroidism and obstructive sleep apnea with noncompliance. Peripheral vascular disease right forefoot amputation left BKA and COPD. Patient presents with 2 days of subjective fever and productive cough of green sputum prompting evaluation emergency room where he found to have mild clonus, PCO2 of 85, leukocytosis and a chest x-ray concerning for pneumonia. He started on empiric antibiotics and referred the hospitalist for admission. Patient denies chest pain and feels somewhat better. Past Medical History Cardiac Medical History: Reports: Atrial Fibrillation, Congestive Heart Failure , Coronary Artery Disease - S/P CABG 2000, DVT - right leg, Myocardial Infarction, Hyperlipidema, Hypertension, Peripheral Vascular Disease Pulmonary Medical History: Reports: Chronic Obstructive Pulmonary Disease (COPD) , Intubation, Respiratory Failure, Sleep Apnea Denies: Asthma, Bronchitis, Pneumonia Neurological Medical History: Denies: Seizures Endocrine Medical History: Reports: Diabetes Mellitus Type 2, Hypothyroidism GI Medical History: Reports: Cirrhosis Musculoskeltal Medical History: Reports: Arthritis Psychiatric Medical History: Reports: Tobacco Dependency Denies: Depression Hematology: Reports: Anemia Infectious Medical History: 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 Past Surgical History Past Surgical History: Reports: Cholecystectomy, Coronary Artery Bypass Graft - 3 vessel CABG in 1999, Orthopedic Surgery - Left BKA and right transmetatarsal amputations, Pacemaker, Tonsillectomy Social History Information Source: [facility] Records Lives with: Group Home Smoking Status: Former Smoker Frequency of Alcohol Use: None Hx Recreational Drug Use: No Drugs: None Hx Prescription Drug Abuse: No - Advance Directive Resuscitation Status: Full Code Family History Family History: Reviewed & Not Pertinent, CAD, DM, Hyperlipidemia, Hypertension , Thyroid Disfunction Parental Family History Reviewed: Yes Children Family History Reviewed: Yes Sibling(s) Family History Reviewed.: Yes Medication/Allergy Home Medications: Amiodarone HCl [Cordarone 200 mg Tablet] 100 mg PO DAILY 06/02/15 Atorvastatin Calcium [Lipitor] 40 mg PO QHS 06/02/15 Multivitamin [Daily Vitamin] 1 each PO DAILY 06/02/15 Fenofibrate Nanocrystallized [Tricor] 1 tab PO DAILY 07/12/16 Fluticasone/Salmeterol [Advair 250-50 Diskus 28 dose] 1 puff IH BID 07/12/16 Furosemide [Lasix] 60 mg PO BID 07/12/16 Insulin Glargine,Hum.rec.anlog [Lantus] 30 units SUBCUT QHS 07/12/16 Magnesium Oxide 1 tab PO DAILY 07/12/16 Insulin Lispro [Humalog] 5 units SUBCUT TID 08/21/16 Metoprolol Succinate [Toprol Xl 50 mg Tab.sr] 1 tab PO DAILY 08/21/16 Lorazepam [Ativan 0.5 mg Tablet] 0.5 mg PO Q4HP PRN #30 tablet 09/01/16 Clopidogrel Bisulfate [Plavix 75 mg Tablet] 75 mg PO DAILY 10/24/16 Epoetin Jordan [Procrit Inj 20,000 Unit/1 ml Vial (Renal)] 20,000 unit IJ ASDIR Levothyroxine Sodium [Synthroid] 100 mcg PO DAILY 10/24/16 Ondansetron HCl [Zofran 4 mg Tablet] 1 tab PO ASDIR PRN 10/24/16 Sennosides/Docusate Sodium [Docusate Sodium-Senna Tablet] 2 each PO QHS Spironolact/Hydrochlorothiazid [Aldactazide 25-25 Tablet] 1 each PO DAILY Tamsulosin HCl [Flomax 0.4 mg Cap.sr] 0.4 mg PO DAILY 10/24/16 Tiotropium Shepherd [Spiriva Handihaler 18 mcg/dose (30 Dose)] 1 cap IH DAILY Albuterol Sulfate [Proair HFA] 2 puff IH Q4H PRN 11/06/16 Cholecalciferol (Vitamin D3) [Vitamin D3] 50,000 unit PO ASDIR PRN 11/06/16 Insulin Lispro [Humalog] 100 unit SQ ASDIR PRN 11/06/16 Cefuroxime Axetil [Ceftin 500 mg Tablet] 500 mg PO Q12 #14 tablet 11/10/16 Lactulose [Cephulac Syrup 20 gm/30 ml Udcup] 20 gm PO Q6 udc 11/10/16 Lansoprazole [Prevacid 30 mg Odt Tablet] 30 mg PO BIDACBS tab.meg. 11/10/16 Oxycodone HCl [Oxy-Ir 5 mg Tablet] 5 mg PO Q6HP PRN #30 tablet 11/10/16 Levofloxacin [Levaquin 500 mg Tablet] 500 mg PO DAILY #4 tablet 10/02/17 Allergies/Adverse Reactions: iodine [Iodine] Allergy (Verified 11/06/16 01:26) hydrocodone bitartrate [From Vicodin] Adverse Reaction (Mild, Verified 11/06/16 01:26) VOMITING Review of Systems Constitutional: ABSENT: chills, fever(s), headache(s), weight gain, weight loss Eyes: ABSENT: visual disturbances Ears: ABSENT: hearing changes Cardiovascular: ABSENT: chest pain, dyspnea on exertion, edema, orthropnea, palpitations Respiratory: ABSENT: cough, hemoptysis Gastrointestinal: ABSENT: abdominal pain, constipation, diarrhea, hematemesis, hematochezia, nausea, vomiting Genitourinary: ABSENT: dysuria, hematuria Musculoskeletal: ABSENT: joint swelling Integumentary: ABSENT: rash, wounds Neurological: ABSENT: abnormal gait, abnormal speech, confusion, dizziness, focal weakness, syncope Psychiatric: ABSENT: anxiety, depression, homidical ideation, suicidal ideation Endocrine: ABSENT: cold intolerance, heat intolerance, polydipsia, polyuria Hematologic/Lymphatic: ABSENT: easy bleeding, easy bruising Physical Exam Vital Signs: Temp Pulse Resp BP Pulse Ox 97.7 F 79 23 H 114/76 96 11/11/17 06:48 11/11/17 02:46 11/11/17 06:31 11/11/17 06:32 11/11/17 06:32 Intake & Output 11/09/17 11/10/17 11/11/17 11:59 11:59 11:59 Intake Total 150 Balance 150 Weight 99.518 kg General appearance: PRESENT: cooperative, disheveled, mild distress, obese Head exam: PRESENT: atraumatic, normocephalic Eye exam: PRESENT: conjunctiva pink, EOMI, PERRLA. ABSENT: scleral icterus Ear exam: PRESENT: normal external ear exam Mouth exam: PRESENT: dry mucosa, tongue midline Neck exam: ABSENT: carotid bruit, JVD, lymphadenopathy, thyromegaly Respiratory exam: PRESENT: accessory muscle use, clear to auscultation karthikeyan, prolonged expiratory phas, rales, rhonchi, symmetrical, tachypnea. ABSENT: wheezes Cardiovascular exam: PRESENT: gallop, irregular rhythm Pulses: PRESENT: normal dorsalis pedis pul Vascular exam: PRESENT: normal capillary refill GI/Abdominal exam: PRESENT: normal bowel sounds, soft. ABSENT: distended, guarding, mass, organolmegaly, rebound, tenderness Rectal exam: PRESENT: deferred Extremities exam: PRESENT: full ROM, other - Severe peripheral vascular disease with residual changes on the right side. ABSENT: calf tenderness, clubbing, pedal edema Neurological exam: PRESENT: alert, awake, oriented to person, oriented to place , oriented to time, oriented to situation, CN II-XII grossly intact. ABSENT: motor sensory deficit Psychiatric exam: PRESENT: appropriate affect, normal mood. ABSENT: homicidal ideation, suicidal ideation Skin exam: PRESENT: other - Stage II sacral decubitus Results Laboratory Results: 11/11/17 01:43 Urine Color YELLOW Urine Appearance SLIGHTLY-CLOUDY Urine pH 5.0 Ur Specific Lucan 1.015 Urine Protein NEGATIVE Urine Glucose (UA) NEGATIVE Urine Ketones NEGATIVE Urine Blood NEGATIVE Urine Nitrite NEGATIVE Ur Leukocyte Esterase LARGE H Urine WBC (Auto) >182 Urine RBC (Auto) 5 11/11/17 11/11/17 01:54 01:54 Creatine Kinase 29 L CK-MB (CK-2) 0.59 Troponin I 0.074 Impressions: Chest X-Ray 11/10/17 22:57 IMPRESSION: [id number] CHF pattern; differential diagnosis includes multifocal pneumonia. 2010 [employer]- All Rights Reserved Assessment & Plan - Diagnosis (1) Acute on chronic respiratory failure Qualifiers: Respiratory failure complication: hypercapnia Qualified Code(s): J96.22 - Acute and chronic respiratory failure with hypercapnia Is this a current diagnosis for this admission?: Yes Plan: Secondary to pneumonia complicated by obstructive sleep apnea and COPD. Albuterol and Atrovent. BiPAP, incentive spirometry and flutter valve (2) Pneumonia Is this a current diagnosis for this admission?: Yes Plan: Complicated by COPD and obstructive sleep apnea. Empiric antibiotics of Levaquin and cefepime initiated, incentive spirometry albuterol and Atrovent. Follow-up blood culture and CBC (3) Acute on chronic renal failure Qualifiers: Acute renal failure type: unspecified Chronic kidney disease stage: stage 3 (moderate) Qualified Code(s): N17.9 - Acute kidney failure, unspecified; N18.3 - Chronic kidney disease, stage 3 (moderate); N18.3 - Chronic kidney disease, stage 3 (moderate) Is this a current diagnosis for this admission?: Yes Plan: Significantly prerenal dehydration. Avoid nephrotoxic meds and doses, Lasix on hold. Follow-up chemistry (4) Diabetes mellitus type II, uncontrolled Qualifiers: Diabetes mellitus complication status: with circulatory complication Diabetes mellitus complication detail: with peripheral angiopathy without gangrene Diabetes mellitus terminologist insulin use: with [facility] use Qualified Code(s): E11.51 - Type 2 diabetes mellitus with diabetic peripheral angiopathy without gangrene; E11.65 - Type 2 diabetes mellitus with hyperglycemia; E11.65 - Type 2 diabetes mellitus with hyperglycemia; E11.65 - Type 2 diabetes mellitus with hyperglycemia; E11.65 - Type 2 diabetes mellitus with hyperglycemia; Z79.4 - rn long term care (current) use of insulin; Z79.4 - intermediate (current) use of insulin; Z79.4 - rn long term care (current) use of insulin; Z79.4 - rn long term care (current) use of insulin Is this a current diagnosis for this admission?: Yes Plan: Hold metformin, sliding scale insulin medication reconciliation for long-acting insulin pending (5) HAKAN (obstructive sleep apnea) Is this a current diagnosis for this admission?: Yes Plan: BiPAP ordered - Time Time Spent: 50 to 70 Minutes - Inpatient Certification Medical Necessity: Need Close Monitoring Due to Risk of Patient Decompensation
[2017-11-11 07:30] LABS: POTASSIUM 6.2 mmol/L (3.6-5.0)
[2017-11-11 07:34] LABS: ABSOLUTE LYMPHOCYTES# (MANUAL) 0.5 10^3/uL (0.5-4.7); ABSOLUTE MONOCYTES # (MANUAL) 0.4 10^3/uL (0.1-1.4); ABSOLUTE NEUTROPHILS# (MANUAL) 12.1 10^3/uL (1.7-8.2); BASOPHILS % (MANUAL) 0 % (0-2); EOSINOPHILS % (MANUAL) 0 % (0-6); LYMPHOCYTES % (MANUAL) 4 % (13-45); MONOCYTES % (MANUAL) 3 % (3-13); SEGMENTED NEUTROPHILS % (MAN) 93 % (42-78); TOTAL CELLS COUNTED 100
[2017-11-11 07:35] LABS: TOXIC GRANULATION 2+
[2017-11-11 07:36] LABS: ANISOCYTOSIS 1+; PLATELET COMMENT ADEQUATE; POIKILOCYTOSIS SLIGHT; SCHISTOCYTES 1+; TEAR DROP CELLS SLIGHT
[2017-11-11] MEDS ORDERED: NORMAL SALINE 1000 ML 1,000 ML IV PRN ×2 (08:01→13:33)
[2017-11-11] MEDS: LORAZEPAM 0.5 MG TABLET PO PRN (08:22)
[2017-11-11] MEDS: INSULIN LISPRO 100 UNIT/ML 3 ML VIAL SUBCUT PRN ×4 (08:23→21:25)
[2017-11-11] MEDS: METOPROLOL SUCCINATE 25 MG TAB.SR.24H PO SCH (09:06)
[2017-11-11] MEDS: GABAPENTIN 300 MG CAPSULE PO SCH ×2 (09:07→17:21)
[2017-11-11] MEDS: LEVOFLOXACIN 500 MG/D5W RTU 500 MG/100 ML RTUPB IV SCH (09:08)
[2017-11-11] MEDS: FLUTICASONE NASAL SPRAY 50 MCG/SPRY 120 SPRAY/16 GM NASL SCH ×2 (09:19→22:16)
[2017-11-11] MEDS ORDERED: CEFEPIME 2 GM/D5W RTU 2 GM/50 ML RTUPB IV SCH (10:00)
[2017-11-11] MEDS ORDERED: TAMSULOSIN HCL 0.4 MG CAP.SR.24H PO SCH (10:00)
--- NOTE | 2017-11-11 11:49 | EKG REPORT ---
SEVERITY:- ABNORMAL ECG - VENTRICULAR-PACED RHYTHM : Confirmed by: Velasquez Wilson 11-Nov-2017 11:47:48
[2017-11-11 13:22] LABS: ANION GAP 12 (5-19); BLOOD UREA NITROGEN 66 mg/dL (7-20); CALCIUM 9.3 mg/dL (8.4-10.2); CARBON DIOXIDE 37 mmol/L (22-30); CHLORIDE 88 mmol/L (98-107); POTASSIUM 5.4 mmol/L (3.6-5.0); SODIUM 136.9 mmol/L (137-145)
[2017-11-11 13:30] LABS: GLUCOSE 406 mg/dL (75-110)
[2017-11-11] MEDS ORDERED: INSULIN LISPRO 100 UNIT/ML 3 ML VIAL SUBCUT ONE (14:00)
[2017-11-11] MEDS ORDERED: (PENDING PHARMACY ID) (Cholecalciferol (Vitamin D3) [Vitamin D3] 50,000 UNIT) PO SCH (15:15)
--- NOTE | 2017-11-11 15:15 | PDOC PROGRESS REPORT ---
Subjective Progress Note for:: 11/11/17 Subjective:: The patient is seen on morning rounds. He is found resting in bed lying supine while on BiPAP. He is noted to be slightly tachypneic but states that he is comfortable and does not want assistance sitting upright when offered. He is very angry that he has not had his breakfast yet this morning. Otherwise he denies complaints and is unwilling to answer any additional questions. He does appear to be oriented to self and place. Reason For Visit: PNEUMONIA Physical Exam Vital Signs: Temp Pulse Resp BP Pulse Ox 98.6 F 88 20 105/90 H 95 11/11/17 11:08 11/11/17 13:45 11/11/17 13:45 11/11/17 11:08 11/11/17 13:45 Intake & Output 11/10/17 11/11/17 11/12/17 06:59 06:59 06:59 Intake Total 150 250 Balance 150 250 Weight 99.518 kg 101.8 kg General appearance: PRESENT: no acute distress, disheveled, well-developed, well -nourished, other - Overweight Head exam: PRESENT: atraumatic, normocephalic Eye exam: PRESENT: conjunctiva pink, EOMI, PERRLA. ABSENT: scleral icterus Ear exam: PRESENT: normal external ear exam Mouth exam: PRESENT: moist, tongue midline Teeth exam: PRESENT: poor dentation Neck exam: ABSENT: carotid bruit, JVD, lymphadenopathy, thyromegaly Respiratory exam: PRESENT: prolonged expiratory phas, rhonchi, symmetrical, tachypnea, wheezes. ABSENT: rales Cardiovascular exam: PRESENT: irregular rhythm, +S1, +S2. ABSENT: diastolic murmur, rubs, systolic murmur Pulses: PRESENT: normal dorsalis pedis pul Vascular exam: PRESENT: normal capillary refill GI/Abdominal exam: PRESENT: distended, normal bowel sounds, soft. ABSENT: guarding, mass, organolmegaly, rebound, tenderness Rectal exam: PRESENT: deferred Extremities exam: PRESENT: full ROM. ABSENT: calf tenderness, clubbing, pedal edema Neurological exam: PRESENT: alert, awake, oriented to person, oriented to place , CN II-XII grossly intact. ABSENT: motor sensory deficit Psychiatric exam: PRESENT: agitated, appropriate affect. ABSENT: homicidal ideation, suicidal ideation Skin exam: PRESENT: dry, intact, warm. ABSENT: cyanosis, rash Results Laboratory Results: 11/11/17 06:33 11/11/17 12:39 11/11/17 11/11/17 11/11/17 01:43 06:33 06:33 WBC 13.0 H RBC 3.43 L Hgb 10.6 L Hct 32.6 L MCV 95 MCH 30.9 MCHC 32.5 RDW 16.6 H Plt Count 188 Seg Neutrophils % Not Reportable Lymphocytes % Not Reportable Monocytes % Not Reportable Eosinophils % Not Reportable Basophils % Not Reportable Absolute Neutrophils Not Reportable Absolute Lymphocytes Not Reportable Absolute Monocytes Not Reportable Absolute Eosinophils Not Reportable Absolute Basophils Not Reportable Sodium 136.6 L Potassium 6.2 H* Chloride 88 L Carbon Dioxide 38 H Anion Gap 11 BUN 62 H Creatinine 1.85 H Est GFR ( Amer) 45 L Est GFR (Non-Af Amer) 37 L Glucose 305 H Calcium 9.4 Urine Color YELLOW Urine Appearance SLIGHTLY-CLOUDY Urine pH 5.0 Ur Specific [place] 1.015 Urine Protein NEGATIVE Urine Glucose (UA) NEGATIVE Urine Ketones NEGATIVE Urine Blood NEGATIVE Urine Nitrite NEGATIVE Ur Leukocyte Esterase LARGE H Urine WBC (Auto) >182 Urine RBC (Auto) 5 11/11/17 12:39 WBC RBC Hgb Hct MCV MCH MCHC RDW Plt Count Seg Neutrophils % Lymphocytes % Monocytes % Eosinophils % Basophils % Absolute Neutrophils Absolute Lymphocytes Absolute Monocytes Absolute Eosinophils Absolute Basophils Sodium 136.9 L Potassium 5.4 H Chloride 88 L Carbon Dioxide 37 H Anion Gap 12 BUN 66 H Creatinine 1.95 H Est GFR ( Amer) 42 L Est GFR (Non-Af Amer) 35 L Glucose 406 H* Calcium 9.3 Urine Color Urine Appearance Urine pH Ur Specific [place] Urine Protein Urine Glucose (UA) Urine Ketones Urine Blood Urine Nitrite Ur Leukocyte Esterase Urine WBC (Auto) Urine RBC (Auto) 11/11/17 11/11/17 01:54 01:54 Creatine Kinase 29 L CK-MB (CK-2) 0.59 Troponin I 0.074 Impressions: Chest X-Ray 11/10/17 22:57 IMPRESSION: [id number] CHF pattern; differential diagnosis includes multifocal pneumonia. 2010 [employer]- All Rights Reserved Assessment & Plan - Diagnosis (1) Acute CHF Qualifiers: Congestive heart failure type: unspecified Qualified Code(s): I50.9 - Heart failure, unspecified Is this a current diagnosis for this admission?: Yes Plan: The patient presents with multifocal pneumonia, confusion, leukocytosis. He is empirically placed on antibiotics for healthcare associated pneumonias. A proBNP is elevated to 8130. He additionally appears to have an acute renal failure that is nature as the actually appears to be volume depleted. He is started on gentle IV hydration and Lasix is held. Will monitor closely for fluid volume status. Cardiac diet with daily weights. (2) Acute on chronic respiratory failure Qualifiers: Respiratory failure complication: hypercapnia Qualified Code(s): J96.22 - Acute and chronic respiratory failure with hypercapnia Is this a current diagnosis for this admission?: Yes Plan: Secondary to pneumonia and complicated by CHF exacerbation, COPD and obstructive sleep apnea. The patient is provided supplemental oxygen and BiPAP as needed to keep oxygen saturations greater than 88%. He is provided albuterol and Atrovent nebulizer treatments. Incentive spirometry and flutter valve. (3) Acute on chronic renal failure Qualifiers: Acute renal failure type: unspecified Chronic kidney disease stage: stage 3 (moderate) Qualified Code(s): N17.9 - Acute kidney failure, unspecified; N18.3 - Chronic kidney disease, stage 3 (moderate); N18.3 - Chronic kidney disease, stage 3 (moderate) Is this a current diagnosis for this admission?: Yes Plan: Prerenal dehydration. Will avoid nephrotoxic medications. Lasix is placed on hold. We will provide gentle IV fluid rehydration and follow-up chemistries. (4) Pneumonia Is this a current diagnosis for this admission?: Yes Plan: Complicated by CHF exacerbation, COPD and obstructive sleep apnea. Blood, urine, sputum cultures are all pending. He has been empirically placed on Levaquin and cefepime for coverage of healthcare associated pneumonia. He will receive supplemental oxygen and BiPAP as needed with DuoNeb's and albuterol treatments. He is encouraged to participate with incentive spirometry and flutter valve. (5) Diabetes mellitus type II, uncontrolled Qualifiers: Diabetes mellitus complication status: with circulatory complication Diabetes mellitus complication detail: with peripheral angiopathy without gangrene Diabetes mellitus fpc insulin use: with customer support analyst use Qualified Code(s): E11.51 - Type 2 diabetes mellitus with diabetic peripheral angiopathy without gangrene; E11.65 - Type 2 diabetes mellitus with hyperglycemia; E11.65 - Type 2 diabetes mellitus with hyperglycemia; E11.65 - Type 2 diabetes mellitus with hyperglycemia; E11.65 - Type 2 diabetes mellitus with hyperglycemia; Z79.4 - penitentiary (current) use of insulin; Z79.4 - assistant operations manager (current) use of insulin; Z79.4 - assistant operations manager (current) use of insulin; Z79.4 - penitentiary (current) use of insulin Is this a current diagnosis for this admission?: Yes Plan: He is placed on a consistent carb diet. Will hold his metformin while acutely ill. Humalog for sliding scale coverage. (6) HAKAN (obstructive sleep apnea) Is this a current diagnosis for this admission?: Yes Plan: BiPAP nightly and as needed. (7) GERD (gastroesophageal reflux disease) Is this a current diagnosis for this admission?: Yes Plan: Continue PPI (8) Hyperkalemia Is this a current diagnosis for this admission?: Yes Plan: Likely secondary to dehydration and acute renal failure. The patient is provided Kayexalate and monitored with serial chemistry. (9) Hypothyroidism Is this a current diagnosis for this admission?: Yes Plan: Will continue the patient's home dose synthroid. - Time Time Spent with patient: 25-34 minutes Medications reviewed and adjusted accordingly: Yes - Inpatient Certification Based on my medical assessment, after consideration of the patient's comorbidities, presenting symptoms, or acuity I expect that the services needed warrant INPATIENT care.: Yes I certify that my determination is in accordance with my understanding of Medicare's requirements for reasonable and necessary INPATIENT services [42 CFR 412.3e].: Yes Medical Necessity: Significant Comorbidiites Make Outpatient Treatment Too Risky , Need Close Monitoring Due to Risk of Patient Decompensation, Need For Continuous Telemetry Monitoring, Need for IV Antibiotics
[2017-11-11] MEDS: FUROSEMIDE 40 MG TABLET PO SCH (16:26)
[2017-11-11] MEDS: POLYETHYLENE GLYCOL 3350 POWDER 17 GM/1 PACKET PO SCH (17:21)
[2017-11-11 20:42] LABS: BLOOD UREA NITROGEN 71 mg/dL (7-20); CHLORIDE 88 mmol/L (98-107); GLUCOSE 367 mg/dL (75-110); POTASSIUM 4.7 mmol/L (3.6-5.0); SODIUM 137.3 mmol/L (137-145)
[2017-11-11 20:52] LABS: ANION GAP 11 (5-19)
[2017-11-11 20:56] LABS: CARBON DIOXIDE 38 mmol/L (22-30)
[2017-11-11] MEDS: SENNOSIDES/DOCUSATE 8.6-50 MG 1 EACH TABLET PO SCH (21:20)
[2017-11-11] MEDS: ATORVASTATIN CALCIUM 40 MG TABLET PO SCH (21:20)
[2017-11-11] MEDS: CEFEPIME HCL 2 GM in DEXTROSE 5%-WATER 50 ML IV SCH (21:24)
[2017-11-11] MEDS ORDERED: FLUTICASONE NASAL SPRAY 50 MCG/SPRY 120 SPRAY/16 GM ONE (22:06)
[2017-11-12] MEDS: IPRATROPIUM/ALBUTEROL 0.5-2.5 MG/3 ML AMPUL NEB SCH ×4 (02:24→19:55)
[2017-11-12 05:00] LABS: ABSOLUTE LYMPHOCYTES (AUTO) 0.7 10^3/uL (0.5-4.7); ABSOLUTE MONOCYTES (AUTO) 0.5 10^3/uL (0.1-1.4); ABSOLUTE NEUT (AUTO) 7.4 10^3/uL (1.7-8.2); BASOPHILS % (AUTO) 0.3 % (0-2); EOSINOPHILS % (AUTO) 0.6 % (0-6); HEMOGLOBIN 9.6 g/dL (13.5-17.0); LYMPHOCYTES % (AUTO) 7.9 % (13-45); MEAN CORPUSCULAR HGB CONC 33.2 g/dL (32.0-36.0); MEAN CORPUSCULAR VOLUME 94 fl (80-97); MONOCYTES % (AUTO) 5.8 % (3-13); PLATELET COUNT 159 10^3/uL (150-450); RED CELL DISTRIBUTION WIDTH 16.6 % (11.5-14.0); SEGMENTED NEUTROPHILS % (AUTO) 85.4 % (42-78); TOTAL CELLS COUNTED % (AUTO) 100 %; WHITE BLOOD COUNT 8.6 10^3/uL (4.0-10.5)
[2017-11-12] MEDS: LEVOTHYROXINE SODIUM 0.1 MG TABLET PO SCH (05:12)
[2017-11-12] MEDS: LEVOTHYROXINE SODIUM 0.025 MG TABLET PO SCH (05:13)
[2017-11-12] MEDS: HEPARIN SOD (PORCINE) 5,000 UNIT/ML 1 ML SYRINGE SUBCUT SCH ×3 (05:13→21:42)
[2017-11-12] MEDS: NORMAL SALINE 1000 ML 1,000 ML IV PRN ×2 (05:20→21:49)
[2017-11-12 05:23] LABS: BLOOD UREA NITROGEN 78 mg/dL (7-20); CALCIUM 8.8 mg/dL (8.4-10.2); CHLORIDE 88 mmol/L (98-107); GLUCOSE 185 mg/dL (75-110); POTASSIUM 4.4 mmol/L (3.6-5.0); SODIUM 139.1 mmol/L (137-145)
[2017-11-12 05:31] LABS: ANION GAP 12 (5-19)
[2017-11-12 05:36] LABS: CARBON DIOXIDE 39 mmol/L (22-30)
[2017-11-12] MEDS ORDERED: (PENDING PHARMACY ID) (Levothyroxine Sodium [Synthroid] 125 MCG) PO SCH (06:00)
[2017-11-12] MEDS ORDERED: SPIRONOLACTONE 25 MG TABLET PO SCH (08:00)
[2017-11-12] MEDS ORDERED: HYDROCHLOROTHIAZIDE 12.5 MG CAPSULE PO SCH (08:00)
[2017-11-12] MEDS ORDERED: [UNRECOGNIZED DRUG - OTHER] PO SCH (08:00)
[2017-11-12] MEDS: INSULIN LISPRO 100 UNIT/ML 3 ML VIAL SUBCUT PRN ×4 (08:17→23:12)
[2017-11-12] MEDS ORDERED: (PENDING PHARMACY ID) (Amiodarone Hcl [Pacerone 100 Mg Tablet] 100 MG) PO SCH (10:00)
[2017-11-12] MEDS ORDERED: (PENDING PHARMACY ID) (Multivit-Min/Fa/Lycopen/Lutein [Certavite Sr-Antioxidant Tab] 1 EAC PO SCH (10:00)
[2017-11-12] MEDS: CEFEPIME HCL 2 GM in DEXTROSE 5%-WATER 50 ML IV SCH ×2 (11:26→21:44)
[2017-11-12] MEDS: AMIODARONE HCL 200 MG TABLET PO SCH (11:27)
[2017-11-12] MEDS: METOPROLOL SUCCINATE 25 MG TAB.SR.24H PO SCH (11:29)
[2017-11-12] MEDS: FENOFIBRATE NANOCRYSTALLIZED 145 MG TABLET PO SCH (11:29)
[2017-11-12] MEDS: GABAPENTIN 300 MG CAPSULE PO SCH ×2 (11:30→18:14)
[2017-11-12] MEDS: CLOPIDOGREL BISULFATE 75 MG TABLET PO SCH (11:31)
[2017-11-12] MEDS: FLUTICASONE NASAL SPRAY 50 MCG/SPRY 120 SPRAY/16 GM NASL SCH ×2 (11:31→21:38)
[2017-11-12] MEDS: FUROSEMIDE 40 MG TABLET PO SCH ×2 (13:07→18:15)
[2017-11-12] MEDS: LEVOFLOXACIN 500 MG/D5W RTU 500 MG/100 ML RTUPB IV SCH (14:08)
[2017-11-12] MEDS ORDERED: FUROSEMIDE 20 MG TABLET ONE (18:08)
[2017-11-12] MEDS: TAMSULOSIN HCL 0.4 MG CAP.SR.24H PO SCH (18:15)
[2017-11-12] MEDS: POLYETHYLENE GLYCOL 3350 POWDER 17 GM/1 PACKET PO SCH (18:15)
[2017-11-12] MEDS: ATORVASTATIN CALCIUM 40 MG TABLET PO SCH (21:41)
[2017-11-12] MEDS: SENNOSIDES/DOCUSATE 8.6-50 MG 1 EACH TABLET PO SCH (21:41)
[2017-11-13] MEDS: IPRATROPIUM/ALBUTEROL 0.5-2.5 MG/3 ML AMPUL NEB SCH ×4 (01:55→20:14)
[2017-11-13] MEDS: LEVOTHYROXINE SODIUM 0.025 MG TABLET PO SCH (05:19)
[2017-11-13] MEDS: LEVOTHYROXINE SODIUM 0.1 MG TABLET PO SCH (05:20)
[2017-11-13] MEDS: HEPARIN SOD (PORCINE) 5,000 UNIT/ML 1 ML SYRINGE SUBCUT SCH ×3 (05:20→22:14)
[2017-11-13 06:28] LABS: ABSOLUTE EOSINOPHILS # (AUTO) 0.2 10^3/uL (0.0-0.6); ABSOLUTE LYMPHOCYTES (AUTO) 0.7 10^3/uL (0.5-4.7); ABSOLUTE MONOCYTES (AUTO) 0.4 10^3/uL (0.1-1.4); ABSOLUTE NEUT (AUTO) 5.8 10^3/uL (1.7-8.2); BASOPHILS % (AUTO) 0.7 % (0-2); EOSINOPHILS % (AUTO) 2.7 % (0-6); HEMATOCRIT 27.4 % (37.9-51.0); HEMOGLOBIN 9.2 g/dL (13.5-17.0); LYMPHOCYTES % (AUTO) 9.9 % (13-45); MEAN CORPUSCULAR HEMOGLOBIN 31.6 pg (27.0-33.4); MEAN CORPUSCULAR HGB CONC 33.6 g/dL (32.0-36.0); MEAN CORPUSCULAR VOLUME 94 fl (80-97); PLATELET COUNT 142 10^3/uL (150-450); RED BLOOD COUNT 2.91 10^6/uL (4.35-5.55); RED CELL DISTRIBUTION WIDTH 16.7 % (11.5-14.0); SEGMENTED NEUTROPHILS % (AUTO) 81.7 % (42-78); TOTAL CELLS COUNTED % (AUTO) 100 %; WHITE BLOOD COUNT 7.2 10^3/uL (4.0-10.5)
[2017-11-13 06:57] LABS: BLOOD UREA NITROGEN 76 mg/dL (7-20); CALCIUM 8.7 mg/dL (8.4-10.2); CHLORIDE 91 mmol/L (98-107); GLUCOSE 145 mg/dL (75-110); POTASSIUM 4.4 mmol/L (3.6-5.0)
[2017-11-13 07:08] LABS: ANION GAP 8 (5-19); CARBON DIOXIDE 37 mmol/L (22-30)
[2017-11-13] MEDS: FUROSEMIDE 20 MG TABLET PO SCH ×2 (08:09→18:02)
[2017-11-13] MEDS: INSULIN LISPRO 100 UNIT/ML 3 ML VIAL SUBCUT PRN ×4 (08:09→22:16)
[2017-11-13] MEDS ORDERED: VANCOMYCIN HCL 0 MG in DEXTROSE 5%-WATER 250 ML IV NR (10:15)
[2017-11-13] MEDS: FENOFIBRATE NANOCRYSTALLIZED 145 MG TABLET PO SCH (10:43)
[2017-11-13] MEDS: CLOPIDOGREL BISULFATE 75 MG TABLET PO SCH (10:43)
[2017-11-13] MEDS: GABAPENTIN 300 MG CAPSULE PO SCH ×2 (10:43→18:01)
[2017-11-13] MEDS: FLUTICASONE NASAL SPRAY 50 MCG/SPRY 120 SPRAY/16 GM NASL SCH ×2 (10:44→22:14)
[2017-11-13] MEDS: METOPROLOL SUCCINATE 25 MG TAB.SR.24H PO SCH (10:44)
[2017-11-13] MEDS: AMIODARONE HCL 200 MG TABLET PO SCH (10:44)
[2017-11-13] MEDS: CEFEPIME HCL 2 GM in DEXTROSE 5%-WATER 50 ML IV SCH ×2 (10:45→22:12)
[2017-11-13] MEDS ORDERED: POLYETHYLENE GLYCOL 3350 POWDER 17 GM/1 PACKET PO PRN (11:20)
--- NOTE | 2017-11-13 11:29 | PDOC PROGRESS REPORT ---
Subjective Progress Note for:: 11/12/17 Subjective:: The patient is seen on morning rounds. He is found resting in bed lying supine while on BiPAP. The patient states that his breathing has slightly improved. He is confused about how he ended up in the hospital and asks me to relay the events of the previous day. He does not recall any of this, stating "I must of been really sick." He complains of slight shortness of breath while at rest and a productive cough. He denies other symptoms and has no other questions or concerns at this time. Reason For Visit: PNEUMONIA Physical Exam Vital Signs: Temp Pulse Resp BP Pulse Ox 97.6 F 63 22 H 110/50 L 98 11/13/17 07:12 11/13/17 08:22 11/13/17 08:22 11/13/17 09:47 11/13/17 08:22 Intake & Output 11/12/17 11/13/17 11/14/17 06:59 06:59 06:59 Intake Total 2937 1758 Output Total 1500 800 Balance 1437 958 Weight 101.6 kg 106.6 kg General appearance: PRESENT: no acute distress, obese, well-developed, well- nourished Head exam: PRESENT: atraumatic, normocephalic Eye exam: PRESENT: conjunctiva pink, EOMI, PERRLA. ABSENT: scleral icterus Ear exam: PRESENT: normal external ear exam Mouth exam: PRESENT: moist, tongue midline Teeth exam: PRESENT: poor dentation Neck exam: ABSENT: carotid bruit, JVD, lymphadenopathy, thyromegaly Respiratory exam: PRESENT: rhonchi, symmetrical, unlabored, wheezes. ABSENT: rales Cardiovascular exam: PRESENT: irregular rhythm, +S1, +S2. ABSENT: diastolic murmur, rubs, systolic murmur Pulses: PRESENT: normal dorsalis pedis pul Vascular exam: PRESENT: normal capillary refill GI/Abdominal exam: PRESENT: normal bowel sounds, soft. ABSENT: distended, guarding, mass, organolmegaly, rebound, tenderness Rectal exam: PRESENT: deferred Extremities exam: PRESENT: full ROM, other - Left BKA, right trans-metatarsal amputation; both chronic Chronic vascular changes noted to the right lower extremity. ABSENT: calf tenderness, clubbing, pedal edema Neurological exam: PRESENT: alert, awake, oriented to person, oriented to place , CN II-XII grossly intact. ABSENT: oriented to time, oriented to situation, motor sensory deficit Psychiatric exam: PRESENT: appropriate affect, normal mood. ABSENT: homicidal ideation, suicidal ideation Skin exam: PRESENT: dry, intact, warm. ABSENT: cyanosis, rash Results Laboratory Results: 11/13/17 05:16 11/13/17 05:16 11/13/17 11/13/17 05:16 05:16 WBC 7.2 RBC 2.91 L Hgb 9.2 L Hct 27.4 L MCV 94 MCH 31.6 MCHC 33.6 RDW 16.7 H Plt Count 142 L Seg Neutrophils % 81.7 H Lymphocytes % 9.9 L Monocytes % 5.0 Eosinophils % 2.7 Basophils % 0.7 Absolute Neutrophils 5.8 Absolute Lymphocytes 0.7 Absolute Monocytes 0.4 Absolute Eosinophils 0.2 Absolute Basophils 0.0 Sodium 136.0 L Potassium 4.4 Chloride 91 L Carbon Dioxide 37 H Anion Gap 8 BUN 76 H Creatinine 1.53 H Est GFR ( Amer) 56 L Est GFR (Non-Af Amer) 46 L Glucose 145 H Calcium 8.7 11/11/17 11/11/17 01:54 01:54 Creatine Kinase 29 L CK-MB (CK-2) 0.59 Troponin I 0.074 Impressions: Chest X-Ray 11/10/17 22:57 IMPRESSION: [id number] CHF pattern; differential diagnosis includes multifocal pneumonia. 2010 [employer]- All Rights Reserved Assessment & Plan - Diagnosis (1) Acute CHF Qualifiers: Congestive heart failure type: unspecified Qualified Code(s): I50.9 - Heart failure, unspecified Is this a current diagnosis for this admission?: Yes Plan: The patient presents with multifocal pneumonia, confusion, leukocytosis. He is empirically placed on antibiotics for healthcare associated pneumonias. A proBNP is elevated to 8130. He additionally appears to have an acute renal failure that is nature as the actually appears to be volume depleted. He is started on gentle IV hydration and Lasix continued at lower dosing. Will monitor closely for fluid volume status. BiPAP and supplemental oxygen as needed to keep O2 sats greater than 91% We will continue home medications; amiodarone, metoprolol Cardiac diet with daily weights. (2) Acute on chronic respiratory failure Qualifiers: Respiratory failure complication: hypercapnia Qualified Code(s): J96.22 - Acute and chronic respiratory failure with hypercapnia Is this a current diagnosis for this admission?: Yes Plan: Improving. Secondary to pneumonia and complicated by CHF exacerbation, COPD and obstructive sleep apnea. The patient is provided supplemental oxygen and BiPAP as needed to keep oxygen saturations greater than 88%. He is provided albuterol and Atrovent nebulizer treatments. Incentive spirometry and flutter valve. (3) Acute on chronic renal failure Qualifiers: Acute renal failure type: unspecified Chronic kidney disease stage: stage 3 (moderate) Qualified Code(s): N17.9 - Acute kidney failure, unspecified; N18.3 - Chronic kidney disease, stage 3 (moderate); N18.3 - Chronic kidney disease, stage 3 (moderate) Is this a current diagnosis for this admission?: Yes Plan: Improving. Creatinine is trending down from 2.15-1.53 which appears to be near his baseline. Prerenal dehydration. Will avoid nephrotoxic medications. Lasix is placed on hold. We will provide gentle IV fluid rehydration and follow-up chemistries. (4) Pneumonia Is this a current diagnosis for this admission?: Yes Plan: Completed by a CHF exacerbation, COPD and obstructive sleep apnea. Brought urine sputum cultures are all pending. He has been empirically placed on Levaquin and cefepime for coverage of healthcare associated pneumonia. He will receive supplemental oxygen and BiPAP as needed with duo nebs and albuterol treatments. He is encouraged to participate with incentive spirometry and flutter valve. (5) Diabetes mellitus type II, uncontrolled Qualifiers: Diabetes mellitus complication status: with circulatory complication Diabetes mellitus complication detail: with peripheral angiopathy without gangrene Diabetes mellitus half-way insulin use: with dough mixer use Qualified Code(s): E11.51 - Type 2 diabetes mellitus with diabetic peripheral angiopathy without gangrene; E11.65 - Type 2 diabetes mellitus with hyperglycemia; E11.65 - Type 2 diabetes mellitus with hyperglycemia; E11.65 - Type 2 diabetes mellitus with hyperglycemia; E11.65 - Type 2 diabetes mellitus with hyperglycemia; Z79.4 - alf (current) use of insulin; Z79.4 - alf (current) use of insulin; Z79.4 - alf (current) use of insulin; Z79.4 - alf (current) use of insulin Is this a current diagnosis for this admission?: Yes Plan: He is placed on a consistent carb diet. Will hold his metformin while acutely ill. Humalog for sliding scale coverage. (6) HAKAN (obstructive sleep apnea) Is this a current diagnosis for this admission?: Yes Plan: BiPAP nightly and as needed. (7) GERD (gastroesophageal reflux disease) Is this a current diagnosis for this admission?: Yes Plan: Continue PPI (8) Hyperkalemia Is this a current diagnosis for this admission?: Yes Plan: Resolved. Likely secondary to dehydration and acute renal failure. The patient is provided Kayexalate and monitored with serial chemistry. (9) Hypothyroidism Is this a current diagnosis for this admission?: Yes Plan: Will continue the patient's home dose synthroid. - Time Time Spent with patient: 15-24 minutes Medications reviewed and adjusted accordingly: Yes - Inpatient Certification Based on my medical assessment, after consideration of the patient's comorbidities, presenting symptoms, or acuity I expect that the services needed warrant INPATIENT care.: Yes I certify that my determination is in accordance with my understanding of Medicare's requirements for reasonable and necessary INPATIENT services [42 CFR 412.3e].: Yes Medical Necessity: Need Close Monitoring Due to Risk of Patient Decompensation, Need for IV Antibiotics
--- NOTE | 2017-11-13 11:35 | PDOC PROGRESS REPORT ---
Subjective Progress Note for:: 11/13/17 Subjective:: The patient is seen on morning rounds. He is found resting in bed lying supine while on supplemental oxygen via nasal cannula. The patient states that his breathing is much improved today. He reports an increase in thick, green, sputum production. Per nursing, the patient had several loose bowel movements overnight. The patient denies abdominal pain, fever, chills, constipation, nausea and vomiting. He denies other symptoms and has no other questions or concerns at this time. Reason For Visit: PNEUMONIA Physical Exam Vital Signs: Temp Pulse Resp BP Pulse Ox 97.6 F 63 22 H 110/50 L 98 11/13/17 07:12 11/13/17 08:22 11/13/17 08:22 11/13/17 09:47 11/13/17 08:22 Intake & Output 11/12/17 11/13/17 11/14/17 06:59 06:59 06:59 Intake Total 2937 1758 Output Total 1500 800 Balance 1437 958 Weight 101.6 kg 106.6 kg General appearance: PRESENT: no acute distress, disheveled, obese, well- developed, well-nourished Head exam: PRESENT: atraumatic, normocephalic Eye exam: PRESENT: conjunctiva pink, EOMI, PERRLA. ABSENT: scleral icterus Ear exam: PRESENT: normal external ear exam Mouth exam: PRESENT: moist, tongue midline Teeth exam: PRESENT: edentulous Neck exam: ABSENT: carotid bruit, JVD, lymphadenopathy, thyromegaly Respiratory exam: PRESENT: decreased breath sounds - bibasilar, rhonchi, symmetrical, unlabored. ABSENT: rales, wheezes Cardiovascular exam: PRESENT: irregular rhythm, +S1, +S2. ABSENT: diastolic murmur, rubs, systolic murmur Pulses: PRESENT: normal dorsalis pedis pul Vascular exam: PRESENT: normal capillary refill GI/Abdominal exam: PRESENT: normal bowel sounds, soft. ABSENT: distended, guarding, mass, organolmegaly, rebound, tenderness Rectal exam: PRESENT: deferred Extremities exam: PRESENT: full ROM, other - Chronic venous stasis changes to the right lower extremity. 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 ABSENT: calf tenderness, clubbing, pedal edema Neurological exam: PRESENT: alert, awake, oriented to person, oriented to place , oriented to time, oriented to situation, CN II-XII grossly intact. ABSENT: motor sensory deficit Psychiatric exam: PRESENT: appropriate affect, normal mood. ABSENT: homicidal ideation, suicidal ideation Skin exam: PRESENT: dry, intact, warm. ABSENT: cyanosis, rash Results Laboratory Results: 11/13/17 05:16 11/13/17 05:16 11/13/17 11/13/17 05:16 05:16 WBC 7.2 RBC 2.91 L Hgb 9.2 L Hct 27.4 L MCV 94 MCH 31.6 MCHC 33.6 RDW 16.7 H Plt Count 142 L Seg Neutrophils % 81.7 H Lymphocytes % 9.9 L Monocytes % 5.0 Eosinophils % 2.7 Basophils % 0.7 Absolute Neutrophils 5.8 Absolute Lymphocytes 0.7 Absolute Monocytes 0.4 Absolute Eosinophils 0.2 Absolute Basophils 0.0 Sodium 136.0 L Potassium 4.4 Chloride 91 L Carbon Dioxide 37 H Anion Gap 8 BUN 76 H Creatinine 1.53 H Est GFR ( Amer) 56 L Est GFR (Non-Af Amer) 46 L Glucose 145 H Calcium 8.7 11/11/17 11/11/17 01:54 01:54 Creatine Kinase 29 L CK-MB (CK-2) 0.59 Troponin I 0.074 Impressions: Chest X-Ray 11/10/17 22:57 IMPRESSION: [id number] CHF pattern; differential diagnosis includes multifocal pneumonia. 2010 [employer]- All Rights Reserved Assessment & Plan - Diagnosis (1) Acute CHF Qualifiers: Congestive heart failure type: unspecified Qualified Code(s): I50.9 - Heart failure, unspecified Is this a current diagnosis for this admission?: Yes Plan: Improved; improved respiratory status, maintaining oxygen saturations on supplemental oxygen and using BiPAP nightly at this time. No evidence of fluid volume overload. The patient presents with multifocal pneumonia, confusion, leukocytosis. He is empirically placed on antibiotics for healthcare associated pneumonias. A proBNP is elevated to 8130. He additionally appears to have an acute renal failure that is nature as the actually appears to be volume depleted. He is started on gentle IV hydration and Lasix continued at lower dosing. Will monitor closely for fluid volume status. BiPAP and supplemental oxygen as needed to keep O2 sats greater than 91% We will continue home medications; amiodarone, metoprolol Cardiac diet with daily weights. (2) Acute on chronic respiratory failure Qualifiers: Respiratory failure complication: hypercapnia Qualified Code(s): J96.22 - Acute and chronic respiratory failure with hypercapnia Is this a current diagnosis for this admission?: Yes Plan: Improving. Secondary to pneumonia and complicated by CHF exacerbation, COPD and obstructive sleep apnea. The patient is provided supplemental oxygen and BiPAP as needed to keep oxygen saturations greater than 88%. He is provided albuterol and Atrovent nebulizer treatments. Incentive spirometry and flutter valve. (3) Acute on chronic renal failure Qualifiers: Acute renal failure type: unspecified Chronic kidney disease stage: stage 3 (moderate) Qualified Code(s): N17.9 - Acute kidney failure, unspecified; N18.3 - Chronic kidney disease, stage 3 (moderate); N18.3 - Chronic kidney disease, stage 3 (moderate) Is this a current diagnosis for this admission?: Yes Plan: Improving. Creatinine is trending down from 2.15-1.53 which appears to be near his baseline. Prerenal dehydration. Will avoid nephrotoxic medications. Lasix is placed on hold. We will provide gentle IV fluid rehydration and follow-up chemistries. (4) Pneumonia Is this a current diagnosis for this admission?: Yes Plan: Complicated by CHF exacerbation, COPD and obstructive sleep apnea. Blood cultures: No growth at 24 hours Urine culture: Pseudomonas sensitive to cefepime Sputum culture: MRSA with multiple resistances; Is sensitive to vancomycin We will continue cefepime. Discontinue Levaquin and start renally dosed vancomycin. He will receive supplemental oxygen and BiPAP as needed with DuoNeb's and albuterol treatments. He is encouraged to participate with incentive spirometry and flutter valve. (5) Diabetes mellitus type II, uncontrolled Qualifiers: Diabetes mellitus complication status: with circulatory complication Diabetes mellitus complication detail: with peripheral angiopathy without gangrene Diabetes mellitus long term care administrator insulin use: with mcc use Qualified Code(s): E11.51 - Type 2 diabetes mellitus with diabetic peripheral angiopathy without gangrene; E11.65 - Type 2 diabetes mellitus with hyperglycemia; E11.65 - Type 2 diabetes mellitus with hyperglycemia; E11.65 - Type 2 diabetes mellitus with hyperglycemia; E11.65 - Type 2 diabetes mellitus with hyperglycemia; Z79.4 - [facility] (current) use of insulin; Z79.4 - [facility] (current) use of insulin; Z79.4 - terminal press operator (current) use of insulin; Z79.4 - [facility] (current) use of insulin Is this a current diagnosis for this admission?: Yes Plan: He is placed on a consistent carb diet. Will hold his metformin while acutely ill. Humalog for sliding scale coverage. (6) HAKAN (obstructive sleep apnea) Is this a current diagnosis for this admission?: Yes Plan: BiPAP nightly and as needed. (7) GERD (gastroesophageal reflux disease) Is this a current diagnosis for this admission?: Yes Plan: Continue PPI (8) Hyperkalemia Is this a current diagnosis for this admission?: Yes Plan: Resolved. Likely secondary to dehydration and acute renal failure. The patient is provided Kayexalate and monitored with serial chemistry. (9) Hypothyroidism Is this a current diagnosis for this admission?: Yes Plan: Will continue the patient's home dose synthroid. - Time Time Spent with patient: 25-34 minutes Medications reviewed and adjusted accordingly: Yes Anticipated discharge: SNF Within: within 36 hours - Inpatient Certification Based on my medical assessment, after consideration of the patient's comorbidities, presenting symptoms, or acuity I expect that the services needed warrant INPATIENT care.: Yes I certify that my determination is in accordance with my understanding of Medicare's requirements for reasonable and necessary INPATIENT services [42 CFR 412.3e].: Yes Medical Necessity: Need Close Monitoring Due to Risk of Patient Decompensation, Need for IV Antibiotics - Plan Summary Plan Summary: The patient was admitted from the shelter facility with fever, confusion , shortness of breath, productive cough. He was found to have a multifocal pneumonia and CHF exacerbation. He was initially placed on cefepime and Levaquin. Sputum and urine cultures have positive growth; antibiotics have been adjusted to continuation of cefepime with vancomycin for coverage of MRSA identified in the sputum. His respiratory status and comfort has improved. He will likely be ready for discharge back to SNF within the next 2-3 days.
[2017-11-13] MEDS: VANCOMYCIN HCL 1,000 MG in DEXTROSE 5%-WATER 250 ML IV SCH (14:20)
[2017-11-13] MEDS: NORMAL SALINE 1000 ML 1,000 ML IV PRN (14:20)
[2017-11-13] MEDS: LACTOBACILLUS ACIDOPHILUS 250 MG TAB PO SCH (18:00)
[2017-11-13] MEDS: TAMSULOSIN HCL 0.4 MG CAP.SR.24H PO SCH (18:01)
[2017-11-13] MEDS: GUAIFENESIN 600 MG TABLET.SA PO SCH (22:11)
[2017-11-13] MEDS: ATORVASTATIN CALCIUM 40 MG TABLET PO SCH (22:11)
[2017-11-14] MEDS: VANCOMYCIN HCL 1,000 MG in DEXTROSE 5%-WATER 250 ML IV SCH ×2 (01:22→12:37)
[2017-11-14] MEDS: IPRATROPIUM/ALBUTEROL 0.5-2.5 MG/3 ML AMPUL NEB SCH ×4 (03:31→19:49)
[2017-11-14 05:10] LABS: ABSOLUTE EOSINOPHILS # (AUTO) 0.2 10^3/uL (0.0-0.6); ABSOLUTE LYMPHOCYTES (AUTO) 0.7 10^3/uL (0.5-4.7); ABSOLUTE MONOCYTES (AUTO) 0.3 10^3/uL (0.1-1.4); ABSOLUTE NEUT (AUTO) 5.1 10^3/uL (1.7-8.2); BASOPHILS % (AUTO) 0.6 % (0-2); EOSINOPHILS % (AUTO) 3.2 % (0-6); HEMATOCRIT 28.5 % (37.9-51.0); HEMOGLOBIN 9.2 g/dL (13.5-17.0); LYMPHOCYTES % (AUTO) 10.4 % (13-45); MEAN CORPUSCULAR HEMOGLOBIN 30.6 pg (27.0-33.4); MEAN CORPUSCULAR HGB CONC 32.5 g/dL (32.0-36.0); MEAN CORPUSCULAR VOLUME 94 fl (80-97); MONOCYTES % (AUTO) 5.2 % (3-13); PLATELET COUNT 131 10^3/uL (150-450); RED BLOOD COUNT 3.02 10^6/uL (4.35-5.55); RED CELL DISTRIBUTION WIDTH 16.9 % (11.5-14.0); SEGMENTED NEUTROPHILS % (AUTO) 80.6 % (42-78); TOTAL CELLS COUNTED % (AUTO) 100 %; WHITE BLOOD COUNT 6.4 10^3/uL (4.0-10.5)
[2017-11-14] MEDS: LEVOTHYROXINE SODIUM 0.1 MG TABLET PO SCH (05:18)
[2017-11-14] MEDS: LEVOTHYROXINE SODIUM 0.025 MG TABLET PO SCH (05:18)
[2017-11-14] MEDS: HEPARIN SOD (PORCINE) 5,000 UNIT/ML 1 ML SYRINGE SUBCUT SCH ×3 (05:24→21:14)
[2017-11-14 05:31] LABS: ANION GAP 7 (5-19); BLOOD UREA NITROGEN 69 mg/dL (7-20); CARBON DIOXIDE 37 mmol/L (22-30); CHLORIDE 93 mmol/L (98-107); GLUCOSE 164 mg/dL (75-110); POTASSIUM 4.6 mmol/L (3.6-5.0); SODIUM 136.7 mmol/L (137-145)
[2017-11-14] MEDS: FUROSEMIDE 20 MG TABLET PO SCH ×2 (10:26→17:45)
[2017-11-14] MEDS: METOPROLOL SUCCINATE 25 MG TAB.SR.24H PO SCH (10:26)
[2017-11-14] MEDS: CLOPIDOGREL BISULFATE 75 MG TABLET PO SCH (10:26)
[2017-11-14] MEDS: GABAPENTIN 300 MG CAPSULE PO SCH ×2 (10:27→17:45)
[2017-11-14] MEDS: AMIODARONE HCL 200 MG TABLET PO SCH (10:27)
[2017-11-14] MEDS: GUAIFENESIN 600 MG TABLET.SA PO SCH ×2 (10:27→21:13)
[2017-11-14] MEDS: LACTOBACILLUS ACIDOPHILUS 250 MG TAB PO SCH ×2 (10:27→17:45)
[2017-11-14] MEDS: FLUTICASONE NASAL SPRAY 50 MCG/SPRY 120 SPRAY/16 GM NASL SCH ×2 (10:27→21:02)
[2017-11-14] MEDS: FENOFIBRATE NANOCRYSTALLIZED 145 MG TABLET PO SCH (10:27)
[2017-11-14] MEDS: CEFEPIME HCL 2 GM in DEXTROSE 5%-WATER 50 ML IV SCH ×2 (10:28→21:03)
[2017-11-14] MEDS: INSULIN LISPRO 100 UNIT/ML 3 ML VIAL SUBCUT PRN ×2 (12:37→21:43)
[2017-11-14] MEDS: TAMSULOSIN HCL 0.4 MG CAP.SR.24H PO SCH (17:45)
--- NOTE | 2017-11-14 17:48 | PDOC PROGRESS REPORT ---
Subjective Progress Note for:: 11/14/17 Subjective:: Pt states that he is doing ok. Pt was receiving breathing treatments. Reason For Visit: PNEUMONIA Physical Exam Vital Signs: Temp Pulse Resp BP Pulse Ox 97.8 F 78 18 115/46 L 97 11/14/17 12:16 11/14/17 14:00 11/14/17 13:47 11/14/17 12:16 11/14/17 13:47 Intake & Output 11/13/17 11/14/17 11/15/17 06:59 06:59 06:59 Intake Total 1758 4048 354 Output Total 800 1725 300 Balance 958 2323 54 Weight 106.6 kg 107 kg General appearance: PRESENT: no acute distress, well-developed, well-nourished Head exam: PRESENT: atraumatic, normocephalic Eye exam: PRESENT: conjunctiva pink, EOMI. ABSENT: scleral icterus Ear exam: PRESENT: normal external ear exam Mouth exam: PRESENT: moist, tongue midline Neck exam: ABSENT: carotid bruit, JVD, lymphadenopathy, thyromegaly Respiratory exam: PRESENT: other - + coarse breath sound at bases, + scant wheezing. ABSENT: rales, rhonchi, wheezes Cardiovascular exam: PRESENT: RRR. ABSENT: diastolic murmur, rubs, systolic murmur Pulses: PRESENT: normal dorsalis pedis pul Vascular exam: PRESENT: normal capillary refill GI/Abdominal exam: PRESENT: normal bowel sounds, soft, other - obese. ABSENT: distended, guarding, mass, organolmegaly, rebound, tenderness Rectal exam: PRESENT: deferred Extremities exam: PRESENT: full ROM. ABSENT: calf tenderness, clubbing, pedal edema Neurological exam: PRESENT: alert, awake, oriented to person, oriented to place , oriented to time, oriented to situation, CN II-XII grossly intact. ABSENT: motor sensory deficit Psychiatric exam: PRESENT: appropriate affect, normal mood. ABSENT: homicidal ideation, suicidal ideation Skin exam: PRESENT: dry, intact, warm. ABSENT: cyanosis, rash Results Laboratory Results: 11/14/17 04:35 11/14/17 04:35 11/14/17 11/14/17 04:35 04:35 WBC 6.4 RBC 3.02 L Hgb 9.2 L Hct 28.5 L MCV 94 MCH 30.6 MCHC 32.5 RDW 16.9 H Plt Count 131 L Seg Neutrophils % 80.6 H Lymphocytes % 10.4 L Monocytes % 5.2 Eosinophils % 3.2 Basophils % 0.6 Absolute Neutrophils 5.1 Absolute Lymphocytes 0.7 Absolute Monocytes 0.3 Absolute Eosinophils 0.2 Absolute Basophils 0.0 Sodium 136.7 L Potassium 4.6 Chloride 93 L Carbon Dioxide 37 H Anion Gap 7 BUN 69 H Creatinine 1.31 H Est GFR ( Amer) > 60 Est GFR (Non-Af Amer) 55 L Glucose 164 H Calcium 9.0 11/11/17 11/11/17 11/14/17 01:54 01:54 04:35 Creatine Kinase 29 L CK-MB (CK-2) 0.59 Troponin I 0.074 NT-Pro-B Natriuret Pep 5820 H Impressions: Chest X-Ray 11/10/17 22:57 IMPRESSION: [id number] CHF pattern; differential diagnosis includes multifocal pneumonia. 2010 [employer]- All Rights Reserved Assessment & Plan - Diagnosis (1) Acute CHF Qualifiers: Congestive heart failure type: unspecified Qualified Code(s): I50.9 - Heart failure, unspecified Is this a current diagnosis for this admission?: Yes Plan: Systolic: Resolved. Will continue to monitor. (2) Acute on chronic renal failure Qualifiers: Acute renal failure type: unspecified Chronic kidney disease stage: stage 3 (moderate) Qualified Code(s): N17.9 - Acute kidney failure, unspecified; N18.3 - Chronic kidney disease, stage 3 (moderate); N18.3 - Chronic kidney disease, stage 3 (moderate) Is this a current diagnosis for this admission?: Yes Plan: Resolved. (3) Acute on chronic respiratory failure Qualifiers: Respiratory failure complication: hypercapnia Qualified Code(s): J96.22 - Acute and chronic respiratory failure with hypercapnia Is this a current diagnosis for this admission?: Yes Plan: Secondary to COPD Exacerbation, Pneumonia, and Systolic CHF exacerbation: Resolved. Will continue current treatment. (4) Diabetes mellitus type II, uncontrolled Qualifiers: Diabetes mellitus complication status: with circulatory complication Diabetes mellitus complication detail: with peripheral angiopathy without gangrene Diabetes mellitus petroleum terminal plant operator insulin use: with petroleum terminal plant operator use Qualified Code(s): E11.51 - Type 2 diabetes mellitus with diabetic peripheral angiopathy without gangrene; E11.65 - Type 2 diabetes mellitus with hyperglycemia; E11.65 - Type 2 diabetes mellitus with hyperglycemia; E11.65 - Type 2 diabetes mellitus with hyperglycemia; E11.65 - Type 2 diabetes mellitus with hyperglycemia; Z79.4 - intermediate teacher (current) use of insulin; Z79.4 - intermediate teacher (current) use of insulin; Z79.4 - intermediate teacher (current) use of insulin; Z79.4 - [facility] (current) use of insulin Is this a current diagnosis for this admission?: Yes Plan: Will continue SSI (5) GERD (gastroesophageal reflux disease) Is this a current diagnosis for this admission?: Yes Plan: Will continue PPI (6) Hyperkalemia Is this a current diagnosis for this admission?: Yes Plan: Resolved. (7) Hypothyroidism Is this a current diagnosis for this admission?: Yes Plan: Will continue synthroid. (8) Pneumonia Is this a current diagnosis for this admission?: Yes Plan: Will continue Cefepime and Vancomycin. (9) HAKAN (obstructive sleep apnea) Is this a current diagnosis for this admission?: Yes Plan: BIPAP - Time Time Spent with patient: 15-24 minutes
[2017-11-14] MEDS: ATORVASTATIN CALCIUM 40 MG TABLET PO SCH (21:13)
[2017-11-14] MEDS: LORAZEPAM 0.5 MG TABLET PO PRN (23:26)
[2017-11-15] MEDS: VANCOMYCIN HCL 1,000 MG in DEXTROSE 5%-WATER 250 ML IV SCH (00:44)
[2017-11-15] MEDS: IPRATROPIUM/ALBUTEROL 0.5-2.5 MG/3 ML AMPUL NEB SCH ×2 (02:15→08:06)
[2017-11-15] MEDS: LEVOTHYROXINE SODIUM 0.025 MG TABLET PO SCH (05:26)
[2017-11-15] MEDS: LEVOTHYROXINE SODIUM 0.1 MG TABLET PO SCH (05:26)
[2017-11-15] MEDS: HEPARIN SOD (PORCINE) 5,000 UNIT/ML 1 ML SYRINGE SUBCUT SCH ×3 (05:27→22:26)
[2017-11-15 06:52] LABS: HEMATOCRIT 27.5 % (37.9-51.0); HEMOGLOBIN 9.2 g/dL (13.5-17.0); MEAN CORPUSCULAR HEMOGLOBIN 31.3 pg (27.0-33.4); MEAN CORPUSCULAR HGB CONC 33.4 g/dL (32.0-36.0); MEAN CORPUSCULAR VOLUME 94 fl (80-97); PLATELET COUNT 120 10^3/uL (150-450); RED BLOOD COUNT 2.93 10^6/uL (4.35-5.55); WHITE BLOOD COUNT 6.8 10^3/uL (4.0-10.5)
[2017-11-15 07:05] LABS: BLOOD UREA NITROGEN 61 mg/dL (7-20); CALCIUM 9.7 mg/dL (8.4-10.2); CHLORIDE 94 mmol/L (98-107); GLUCOSE 145 mg/dL (75-110); POTASSIUM 4.8 mmol/L (3.6-5.0); SODIUM 139.6 mmol/L (137-145)
[2017-11-15 07:11] LABS: CARBON DIOXIDE 36 mmol/L (22-30)
[2017-11-15 07:15] LABS: ANION GAP 10 (5-19)
[2017-11-15 07:58] LABS: ABSOLUTE LYMPHOCYTES# (MANUAL) 0.5 10^3/uL (0.5-4.7); ABSOLUTE NEUTROPHILS# (MANUAL) 6.1 10^3/uL (1.7-8.2); BASOPHILS % (MANUAL) 2 % (0-2); EOSINOPHILS % (MANUAL) 1 % (0-6); LYMPHOCYTES % (MANUAL) 7 % (13-45); METAMYELOCYTES % (MANUAL) 1 % (0); MONOCYTES % (MANUAL) 0 % (3-13); SEGMENTED NEUTROPHILS % (MAN) 89 % (42-78); TOTAL CELLS COUNTED 100
[2017-11-15 07:59] LABS: ANISOCYTOSIS 2+; HYPOCHROMASIA SLIGHT; PLATELET COMMENT DECREASED; TOXIC GRANULATION SLIGHT
[2017-11-15] MEDS ORDERED: MAG HYDROX/AL HYDROX/SIMETH SUSP 30 ML UDCUP PO PRN (10:19)
[2017-11-15] MEDS ORDERED: OXYCODONE HCL IR 5 MG TABLET PO PRN (10:19)
[2017-11-15] MEDS ORDERED: IPRATROPIUM/ALBUTEROL 0.5-2.5 MG/3 ML AMPUL NEB PRN (10:28)
[2017-11-15] MEDS ORDERED: METOPROLOL SUCCINATE 25 MG TAB.SR.24H PO ONE (11:00)
[2017-11-15] MEDS: LACTOBACILLUS ACIDOPHILUS 250 MG TAB PO SCH ×2 (11:02→17:55)
[2017-11-15] MEDS: GUAIFENESIN 600 MG TABLET.SA PO SCH ×2 (11:02→22:35)
[2017-11-15] MEDS: AMIODARONE HCL 200 MG TABLET PO SCH (11:03)
[2017-11-15] MEDS: FENOFIBRATE NANOCRYSTALLIZED 145 MG TABLET PO SCH (11:03)
[2017-11-15] MEDS: CLOPIDOGREL BISULFATE 75 MG TABLET PO SCH (11:03)
[2017-11-15] MEDS: FUROSEMIDE 20 MG TABLET PO SCH ×2 (11:03→17:55)
[2017-11-15] MEDS: FLUTICASONE NASAL SPRAY 50 MCG/SPRY 120 SPRAY/16 GM NASL SCH ×2 (11:04→22:36)
[2017-11-15] MEDS ORDERED: DOXYCYCLINE HYCLATE 100 MG TABLET PO ONE (11:30)
--- NOTE | 2017-11-15 11:33 | PROGRESS NOTE E ---
Progress Note NAME: MAYRA JAY : 1950 AGE: 67Y DATE: 11/15/2017 ROOM: [facility] SUBJECTIVE: The patient is lying in bed. He states he feels better than he did yesterday. The patient is on room air. The patient does any nausea, vomiting or diarrhea, no dizziness or chest pain, no fever or chills. The patient has been afebrile. His blood pressure has been in a good range. The patient does not voice any other concerns at this time. REVIEW OF SYSTEMS: Rest of the review of systems is negative. MEDICATIONS: Medications have been reviewed. OBJECTIVE: GENERAL: The patient is a 67-year-old male who is awake and alert and oriented to person, place, time, and situation. He is verbal and conversational and does not appear to be in any acute distress. VITAL SIGNS: Temperature 98.6, pulse 69, respirations 23, blood pressure 117/53, oxygen saturation is 98% on 0.5 L nasal cannula. SKIN: Warm and dry, no rash, not diaphoretic. HEENT: Pupils equal, round, reactive to light and accommodation. Conjunctivae are pink. No JVP. CARDIOVASCULAR: Heart is regular. There is no rub. CHEST: Rhonchorous in upper lung nichole, symmetrical, unlabored. ABDOMEN: Obese, firm. EXTREMITIES: No clubbing or cyanosis. The patient has a left BKA. PSYCHIATRIC: The patient is at baseline. DIAGNOSTICS: Lab values are as follow: Hematology obtained on 11/15/2017: WBCs are 6.8, hemoglobin is 9.2, hematocrit is 27.5, platelet count is 120,000. Chemistry obtained on 11/15/2017: Sodium is 139, potassium 4.8, chloride is 94, carbon dioxide 36, BUN 61, creatinine is 1.35, glucose 145, calcium is 9.7. IMPRESSION AND PLAN: 1. MRSA PNEUMONIA. The patient has been covered with IV vancomycin. Will transition to oral doxycycline, add preliminary toilet, continue nebulizers and follow. 2. [id number] HYPOXEMIC RESPIRATORY FAILURE. The patient is currently not requiring O2. 3. [id number] STAGE 3 KIDNEY DISEASE. The patient's creatinine is back to baseline. 4. DIABETES MELLITUS TYPE 2. The patient's glucoses are a little labile. Will follow. 5. POLYMICROBIAL URINE CULTURE. Do believe that this most likely is a colonization given that these are the same organisms in the past. The patient has been covered for 5 days of pseudomonal coverage. Will discontinue this at this point. Do believe this is strictly colonization. 6. HYPERKALEMIA. Resolved. 7. HYPOTHYROIDISM. Will continue levothyroxine. 8. OBSTRUCTIVE SLEEP APNEA. Will continue nightly CPAP. 9. CHRONIC OBSTRUCTIVE LUNG DISEASE. Will continue the patient's home medications. 10. ATRIAL FIBRILLATION. Continue current meds. 11. CORONARY ARTERY DISEASE. Will continue home medications. 12. CHRONIC SYSTOLIC CONGESTIVE HEART FAILURE WITH AN EF OF 35%. The patient does have a bivent pacer as well as an ICD. The patient appears euvolemic. 13. PERIPHERAL VASCULAR DISEASE. Stable. DISPOSITION: The patient is a FULL CODE. Pending patient's symptomatology and diagnostic findings, will reevaluate in the a.m. Will transition for oral antibiotics for possible discharge tomorrow. Time spent on this followup including assessment, plan, physical examination, patient education, review of records is 35 minutes. DICTATING PHYSICIAN: KRYSTIAN VILLARREAL NP [id number] PHY#: [id number] ID: [id number] JOB#: [id number] ACCT: [id number] cc: >
[2017-11-15] MEDS: INSULIN LISPRO 100 UNIT/ML 3 ML VIAL SUBCUT PRN ×2 (14:42→22:36)
[2017-11-15] MEDS ORDERED: GABAPENTIN 300 MG CAPSULE PO ONE (15:00)
[2017-11-15] MEDS: TAMSULOSIN HCL 0.4 MG CAP.SR.24H PO SCH (17:55)
[2017-11-15] MEDS ORDERED: (PENDING PHARMACY ID) (Lansoprazole [Prevacid] 30 MG) PO SCH (18:00)
[2017-11-15] MEDS ORDERED: GABAPENTIN 100 MG CAPSULE PO SCH (22:00)
[2017-11-15] MEDS ORDERED: ALLOPURINOL 100 MG TABLET PO SCH (22:00)
[2017-11-15] MEDS: TOLTERODINE TARTRATE 1 MG TABLET PO SCH (22:34)
[2017-11-15] MEDS: ATORVASTATIN CALCIUM 40 MG TABLET PO SCH (22:35)
[2017-11-15] MEDS: LORAZEPAM 0.5 MG TABLET PO PRN (22:36)
[2017-11-15] MEDS: FLUTICASONE/SALMETEROL DISKUS 250-50 MCG/DOSE IH SCH (22:36)
[2017-11-15] MEDS: DOXYCYCLINE HYCLATE 100 MG TABLET PO SCH (22:36)
[2017-11-16] MEDS ORDERED: LORAZEPAM INJ 2 MG/1 ML VIAL IV ONE (04:30)
[2017-11-16] MEDS ORDERED: ASPIRIN 81 MG TABLET, CHEWABLE PO ONE (04:30)
--- NOTE | 2017-11-16 05:11 | RADIOLOGY REPORT (SQ) ---
EXAM DESCRIPTION: CT HEAD WITHOUT CLINICAL HISTORY: change in status COMPARISON: None available TECHNIQUE: Axial CT of the head obtained from the skull apex to the skull base without contrast. FINDINGS: No acute intracranial hemorrhage identified. No mass, mass effect, shift of the midline, abnormal extra-axial fluid collection or CT evidence of acute ischemic change identified. The ventricular system and sulcal spaces are mildly enlarged compatible with mild cerebral atrophy. Scattered areas of hypodensity throughout the supratentorial white matter are nonspecific and may be related to chronic small vessel ischemic change. The visualized paranasal sinuses and the mastoids are clear. No skull fracture identified. Visualized orbits and globes are unremarkable. Atherosclerotic calcification of the intracranial internal carotid arteries. DLP:1450.37 mGy-cm IMPRESSION: 1. No acute intracranial abnormality by CT criteria. This exam was performed according to our departmental dose-optimization program, which includes automated exposure control, adjustment of the mA and/or kV according to patient size and/or use of iterative reconstruction technique.
[2017-11-16 05:22] LABS: HEMATOCRIT 29.1 % (37.9-51.0); HEMOGLOBIN 9.6 g/dL (13.5-17.0); MEAN CORPUSCULAR HEMOGLOBIN 30.6 pg (27.0-33.4); MEAN CORPUSCULAR HGB CONC 32.9 g/dL (32.0-36.0); MEAN CORPUSCULAR VOLUME 93 fl (80-97); PLATELET COUNT 120 10^3/uL (150-450); RED BLOOD COUNT 3.13 10^6/uL (4.35-5.55); WHITE BLOOD COUNT 9.2 10^3/uL (4.0-10.5)
[2017-11-16 05:36] LABS: BLOOD UREA NITROGEN 61 mg/dL (7-20); CALCIUM 9.9 mg/dL (8.4-10.2); CHLORIDE 95 mmol/L (98-107); GLUCOSE 126 mg/dL (75-110); POTASSIUM 5.4 mmol/L (3.6-5.0)
[2017-11-16 05:49] LABS: ABSOLUTE LYMPHOCYTES# (MANUAL) 0.8 10^3/uL (0.5-4.7); ABSOLUTE MONOCYTES # (MANUAL) 0.2 10^3/uL (0.1-1.4); ABSOLUTE NEUTROPHILS# (MANUAL) 7.8 10^3/uL (1.7-8.2); BASOPHILS % (MANUAL) 0 % (0-2); EOSINOPHILS % (MANUAL) 4 % (0-6); LYMPHOCYTES % (MANUAL) 9 % (13-45); METAMYELOCYTES % (MANUAL) 1 % (0); MONOCYTES % (MANUAL) 2 % (3-13); SEGMENTED NEUTROPHILS % (MAN) 84 % (42-78); TOTAL CELLS COUNTED 100
[2017-11-16 05:50] LABS: ANISOCYTOSIS 1+; HYPOCHROMASIA SLIGHT; OVALOCYTES SLIGHT; PLATELET COMMENT DECREASED; POIKILOCYTOSIS SLIGHT; POLYCHROMASIA SLIGHT; TOXIC GRANULATION SLIGHT
[2017-11-16 06:02] LABS: ANION GAP 11 (5-19)
[2017-11-16 06:05] LABS: CARBON DIOXIDE 34 mmol/L (22-30)
[2017-11-16] MEDS: HEPARIN SOD (PORCINE) 5,000 UNIT/ML 1 ML SYRINGE SUBCUT SCH ×2 (06:12→14:31)
[2017-11-16] MEDS: LEVOTHYROXINE SODIUM 0.025 MG TABLET PO SCH (06:19)
[2017-11-16] MEDS: LEVOTHYROXINE SODIUM 0.1 MG TABLET PO SCH (06:19)
[2017-11-16] MEDS ORDERED: MAGNESIUM SULFATE/D5W 1 GM/100 ML RTUPB IV ONE (07:20)
[2017-11-16] MEDS ORDERED: IPRATROPIUM/ALBUTEROL 0.5-2.5 MG/3 ML AMPUL NEB PRN (07:30)
[2017-11-16] MEDS ORDERED: ALLOPURINOL 300 MG TABLET PO SCH (08:00)
[2017-11-16] MEDS: GABAPENTIN 300 MG CAPSULE PO SCH ×2 (09:19→14:31)
[2017-11-16] MEDS: FUROSEMIDE 20 MG TABLET PO SCH ×2 (09:20→16:41)
[2017-11-16] MEDS: GUAIFENESIN 600 MG TABLET.SA PO SCH (09:21)
[2017-11-16] MEDS: FENOFIBRATE NANOCRYSTALLIZED 145 MG TABLET PO SCH (09:21)
[2017-11-16] MEDS: DOXYCYCLINE HYCLATE 100 MG TABLET PO SCH (09:22)
[2017-11-16] MEDS: AMIODARONE HCL 200 MG TABLET PO SCH (09:22)
[2017-11-16] MEDS: CLOPIDOGREL BISULFATE 75 MG TABLET PO SCH (09:22)
[2017-11-16] MEDS: LACTOBACILLUS ACIDOPHILUS 250 MG TAB PO SCH ×2 (09:23→16:42)
[2017-11-16] MEDS: FLUTICASONE/SALMETEROL DISKUS 250-50 MCG/DOSE IH SCH (09:24)
[2017-11-16] MEDS: FLUTICASONE NASAL SPRAY 50 MCG/SPRY 120 SPRAY/16 GM NASL SCH (09:24)
[2017-11-16] MEDS ORDERED: SENNOSIDES/DOCUSATE 8.6-50 MG 1 EACH TABLET PO SCH (10:00)
[2017-11-16] MEDS ORDERED: TOLTERODINE TARTRATE 4 MG PO SCH (10:00)
[2017-11-16] MEDS ORDERED: (PENDING PHARMACY ID) (Tiotropium Bromide [Spiriva Respimat] 2 PUFF) IH SCH (10:00)
[2017-11-16] MEDS ORDERED: SODIUM POLYSTYRENE SULFONATE 15 GM/60 ML PO ONE (10:00)
[2017-11-16] MEDS ORDERED: METOPROLOL SUCCINATE 25 MG TAB.SR.24H PO SCH (10:00)
[2017-11-16] MEDS ORDERED: MULTIVITAMIN TABLET PO SCH (10:00)
[2017-11-16] MEDS: TOLTERODINE TARTRATE 1 MG TABLET PO SCH (11:39)
[2017-11-16] MEDS ORDERED: MAGNESIUM OXIDE 400 MG TABLET PO SCH (12:00)
--- NOTE | 2017-11-16 12:08 | TRANSFER SUMMARY E ---
Transfer Summary NAME: MAYRA JAY : 1950 AGE: 67Y ADMITTED: 11/11/2017 TRANSFERRED: 11/16/2017 CODE STATUS: FULL CODE. PRIMARY CARE PROVIDER: Dr. Simon. DISCHARGE DIAGNOSIS: 1. Methicillin-resistant Staphylococcus aureus pneumonia. 2. 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 3. Tyzys-df-nhvrobv hypoxemic respiratory failure secondary to number 1. The patient is on his baseline oxygen requirement. 4. Chronic obstructive pulmonary disease. 5. Obstructive sleep apnea with continuous positive airway pressure. 6. Vkiol-tz-fbktyim stage 3 kidney disease. 7. Hyperkalemia. 8. Diabetes mellitus type 2. 9. Hyperthyroidism. 10. Atrial fibrillation. 11. Coronary artery disease. 12. Chronic systolic congestive heart failure with an ejection fraction of 35%. 13. Biventricular pacemaker with AICD. 14. Severe peripheral vascular and peripheral artery disease status post amputation. MEDICATIONS: 1. Oxy-IR 5 mg p.o. every 6 hours p.r.n. 10 tablets with zero refills. 2. Ativan 0.5 mg p.o. every 4 hours p.r.n. 10 tablets with zero refills. 3. Duoneb, one neb every 6 hours p.r.n. 4. Mucinex 600 mg p.o. every 12 hours x6 more doses. 5. Lasix 40 mg p.o. b.i.d. 6. Flonase two sprays nasally every 12 hours. 7. Doxycycline 100 mg p.o. every 12 hours 18 tablets with zero refill. 8. Detrol 4 mg p.o. daily. 9. Spiriva two puffs inhalation daily. 10. Flomax 0.4 mg p.o. every night. 11. Senna-S two tablets p.o. at bedtime. 12. Miralax 17 g p.o. every evening. 13. Multivitamin one tablet p.o. daily. 14. Metoprolol XL 25 mg p.o. daily. 15. Magnesium oxide 400 mg p.o. daily. 16. Maalox 20 mL p.o. every 4 hours p.r.n. 17. Synthroid 125 mcg p.o. every morning. 18. Prevacid 30 mg p.o. every 12 hours. 19. Humalog as previous sliding scale covers, a.c. h.s. for blood sugars 0 to 150 none, for blood sugars 151 to 200 two units, for blood sugars 201 to 250 four units, for blood sugars 251 to 300 six units, for blood sugars 301 to 350 eight units, blood sugars 351 to 400 ten units, for blood sugars greater than 401 twelve units. 20. Neurontin 600 mg p.o. b.i.d. 21. Neurontin 100 mg p.o. every hour of sleep. 22. Advair 250/50 one puff inhalation every 12 hours. 23. Tricor 145 mg p.o. daily. 24. Epogen 2000 units subcutaneous weekly on Tuesdays. 25. Plavix 75 mg p.o. daily. 26. Vitamin D 50,000 international units p.o. every 2 weeks. 27. Lipitor 40 mg p.o. every hour of sleep. 28. Amiodarone 100 mg p.o. daily. 29. Allopurinol 300 mg p.o. every morning. 30. Allopurinol 100 mg p.o. every hour of sleep. 31. ProAir HFA two puffs inhalation every 4 hours p.r.n. DIET: Cardiac and diabetic. ACTIVITY: Per rehab standards. DIAGNOSTICS: Lab values are as follows: Hematology obtained on 11/16/2017: WBC hemoglobin 9.6, hematocrit 29.1, platelet count is 120,000. Coagulation obtained on 11/10/2017: PT is 40.1, INR is 1.02. Venous blood gas obtained on 11/10/2017: PCO2 is 86.9. Bicarb is 43.6. Chemistry obtained on 11/16/2017: Sodium is 140, potassium 5.4, chloride is 95, carbon dioxide 34. BUN 61, creatinine 1.21, glucose 126, lactic acid is 0.8, calcium is 9.9, magnesium is 1.8. Total bilirubin 0.5, AST 20, ALT 26, alkaline phosphatase 53, ammonia 15.8, CK 32, CKMB 0.71. Troponin 0.07, BNP is 8130, total protein 6.5, albumin 3.7. Urinalysis obtained on 11/11/2017: Color yellow. Appearance slightly cloudy, pH 5.0, specific gravity 1.015, protein negative, glucose negative, ketones negative, occult blood negative, nitrite negative, bilirubin negative, negative. WBC greater than 182, RBC 5, casts 3, bacteria 1, WBC few, epithelial squamous cells less than 1, mucus occasional, ascorbic acid is negative. Microbiology blood cultures obtained on 11/11/2017 no growth Sputum culture obtained on 11/11/2017 reveals MRSA. Urine culture obtained on 11/11/2017 reveals pseudomonas and enterococcus. PHYSICAL EXAMINATION: On examination the patient is a frail, chronically ill appearing 67-year-old male who is awake and alert. He is oriented to person, place, time, and situation. He can be a little delayed. Does not appear to be distressed. Vital signs as follows: Temperature is 98.2, pulse 61, respirations 16, blood pressure is 125/63, oxygen saturation is 100% on 2 liters nasal cannula. Skin is pale, dry, without rashes, not diaphoretic. HEENT: His pupils are reactive. Conjunctiva is pale. There is no evidence of JVP. CVS: Heart is regular. There is no murmur or rub. Chest is Rhonchorous, symmetrical, unlabored. Abdomen is firm, nondistended. No area of focal tenderness. Extremities: The patient is a left BKA, a right partial amputation of the foot. The patient has findings of chronic peripheral disease. HISTORY OF PRESENT ILLNESS: The patient is a 66-year-old male with a past medical history of chronic debility subsequent bed bound state who resides in a [facility] facility. The patient presented to the emergency department with a chief complaint of shortness of breath and cough. The patient presented with two days of subjective fever, productive cough of greenish sputum. While in the emergency department the patient was found to have mild clonus with a PCO2 of 85, leukocytosis, chest x-ray concerning for pneumonia. The patient was started on empirical antibiotics and was referred to the hospital for admission. The patient denied any chest pain or vomiting or diarrhea. The patient subsequently was placed on BiPAP with improvement of symptoms and was referred to the hospital for admission and management. HOSPITAL COURSE: The patient was admitted to [facility]. The patient's presenting creatinine was found to be 1.91 where as the patient's baseline is in the 1.3 range. The patient was gently hydrated and creatinine did improve. The patient was started on antibiotic therapy and the patient's sputum culture was positive for MRSA. The patient completed five days of vancomycin and cefepime before being transitioned over to oral doxycycline, for which the patient has tolerated without issue. The patient is still producing a significant amount of sputum with flutter valve, which the patient is encouraged to use as well as incentive spirometry. The patient has been weaned down to his home setting. The patient is able to fully complete sentences without issue. The patient has remained afebrile throughout the course of his stay. Blood pressure is in an acceptable range as well. The patient does have a chronic indwelling Morse for which he has had UTIs in the past. The patient did have polymicrobial findings and the patient's Morse was switched out during his stay. The patient's Morse has grown pseudomonas in the past, which was present at this time as well as an enterococcus. The patient completed five days of treatment. However, it is recommended that in the future the patient not be cultured given his chronic indwelling state and polymicrobial colonization as this is the advice of Infectious Disease. The patient does have an issue with underlying hyperkalemia with his renal failure. The patient's potassium at one time was found to be 6.2. Given this, the patient's Aldactone has been discontinued as he is unable to tolerate it due to his chronic kidney disease and tendency to have hyperkalemia. DISCHARGE PLAN: 1. The patient is advised to follow up with primary care provider as needed. 2. Time spent on this discharge including assessment and plan, physical examination, patient education, resource is 45 minutes. DICTATING PHYSICIAN: KRYSTIAN VILLARREAL NP [id number] PHY#: [id number] ID: [id number] JOB#: [id number] ACCT: [id number] cc:KRYSTIAN VILLARREAL NP > MTDD
[2017-11-16] MEDS: INSULIN LISPRO 100 UNIT/ML 3 ML VIAL SUBCUT PRN (12:22)
[2017-11-16] MEDS: LORAZEPAM 0.5 MG TABLET PO PRN (14:36)
[2017-11-16] MEDS: TAMSULOSIN HCL 0.4 MG CAP.SR.24H PO SCH (16:42)
[2017-11-16 17:12] VITALS: BP 136/63
[2017-11-18] MEDS ORDERED: ERGOCALCIFEROL (VITAMIN D2) 50000 UNIT (1.25 MG) CAPSULE PO SCH (10:00)
[2017-11-21] MEDS ORDERED: EPOETIN ALFA INJ 20000 UNIT/1 ML VIAL (RENAL) SUBCUT PRN (10:00)
== END 2017-11-16 17:10 | DRG 177 ==
LOC: ER 22:09 → EH 11-11 01:40 → 3W 11-11 11:21 → 4N 11-15 20:16
PROVIDERS: ADMIT Internal Medicine; ATTEND Internal Medicine
DX: J15.212 Pneumonia due to Methicillin resistant Staphylococcus aureus (principal); J96.22 Acute and chronic respiratory failure with hypercapnia; N17.9 Acute kidney failure, unspecified; I13.0 Hypertensive heart and chronic kidney disease with heart failure and stage 1 through stage 4 chronic kidney disease, or unspecified chronic kidney disease; I50.22 Chronic systolic (congestive) heart failure; J44.1 Chronic obstructive pulmonary disease with (acute) exacerbation; J44.0 Chronic obstructive pulmonary disease with (acute) lower respiratory infection; I48.91 Unspecified atrial fibrillation; N18.3 Chronic kidney disease, stage 3 (moderate); E11.22 Type 2 diabetes mellitus with diabetic chronic kidney disease; E11.51 Type 2 diabetes mellitus with diabetic peripheral angiopathy without gangrene; E87.5 Hyperkalemia; E03.9 Hypothyroidism, unspecified; G47.33 Obstructive sleep apnea (adult) (pediatric); Z87.891 Personal history of nicotine dependence; Z89.512 Acquired absence of left leg below knee; Z95.1 Presence of aortocoronary bypass graft; Z89.421 Acquired absence of other right toe(s); Z99.81 Dependence on supplemental oxygen; Z95.810 Presence of automatic (implantable) cardiac defibrillator
CPT/HCPCS: 36415; 70450; 71045; 80048; 80053; 81001; 82140; 82550; 82553; 82803; 82962; 83605; 83735; 83880; 84484; 85025; 85610; 85730; 87040; 87070; 87077; 87086; 87088; 87186; 87205; 93005; 93010; 94640; 94660; 94667; 94668; 94799; 96374; 96375; 99291; J0692; J1644; J1815; J1956; J2060; J2930; J3370; J3475; J3490; J7030; J7060; J7620